=== PATIENT | male | born 1975 | race Hispanic/Latino ===

== ENCOUNTER 2017-06-10 22:32 | Emergency (ER) | payer OTHER, SELFPAY ==
[2017-06-10 22:33] VITALS: BP 122/81; PULSE 69; RESP 15; TEMP 36.5; BMI 25.1
--- NOTE | 2017-06-10 22:47 | ED.VISSUMM ---
- ER Visit Summary Date of Service: 06/10/17 Chief Complaint: Cough with nausea and vomiting History of Present Illness: The patient is a 42 M without any significant past medical history and no prior abdominal surgeries. Patient is speaking and does not speak Uzbek. 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 Patient started having cough with nausea and vomiting this afternoon. Mild abdominal cramping. No diarrhea. No fever. No abdominal trauma. No hematemesis or melena. He has had no recent hospitalization. Physical Examination: Middle-aged male no acute distress. Vital signs are stable afebrile. H EENT exam pupils are round reactive light. Mildly dry mucous membranes. No signs of trauma. Neck nontender no meningismus. Lungs clear to auscultation bilaterally. Heart regular rhythm no murmur rate about 70. Chest wall nontender. Abdomen is soft. Nondistended. Normal bowel sounds. No signs of trauma. No right upper or right lower quadrant tenderness. No peritoneal signs. Minimal epigastric discomfort. No hernias or masses. No signs of obstruction. No obvious organomegaly. Patient is moving all 4 extremities. They are neurovascularly intact with normal range of motion. Normal negative turner strength along with normal dorsi and plantar flexion. No edema. Back exam normal. Neurologic exam normal. Test Results: None done Emergency Department Course and Treatment: Patient appears to have a viral syndrome. His benign abdomen. He will be treated with a liter normal saline and Zofran. Reassess. P.o. fluid challenge. Treatment Plan: On repeat exam at 2336 patient is doing well. He is received a liter of fluid and Zofran. He is currently drinking a glass of water. He states he feels much better and is comfortable being discharged home. He will be given a Zofran home pack. His repeat abdominal exam is benign. Disposition: Discharge Impression: Acute nausea and vomiting secondary to viral syndrome This note was generated with [employer] dictation software. It may contain incorrect words, spelling, and punctuation that were not noted in review of the chart prior to signing ED Disposition - Plan for ED Patient: Disposition: Home or Assisted Living Chief Complaint: Nausea/Vomiting Instructions: ED Nausea Vomiting Referrals: Nate Jacobo MD [Primary Care Provider] - 1-2 Days if not improving Additional Instructions: Plenty of fluids and rest. Zofran as needed for nausea. You may swallow these pills or have them dissolve underneath her tongue. Return if unable to keep fluids down or feeling worse. Otherwise follow-up your primary care physician if not improving.
--- NOTE | 2017-06-10 22:51 | ED.DCSUM_ITS ---
- ER Visit Summary Date of Service: 06/10/17 Chief Complaint: Cough with nausea and vomiting History of Present Illness: The patient is a 42 M without any significant past medical history and no prior abdominal surgeries. Patient is speaking and does not speak Iranian. His sister is with him and is being used as his time study observer. Patient started having cough with nausea and vomiting this afternoon. Mild abdominal cramping. No diarrhea. No fever. No abdominal trauma. No hematemesis or melena. He has had no recent hospitalization. Physical Examination: Middle-aged male no acute distress. Vital signs are stable afebrile. H EENT exam pupils are round reactive light. Mildly dry mucous membranes. No signs of trauma. Neck nontender no meningismus. Lungs clear to auscultation bilaterally. Heart regular rhythm no murmur rate about 70. Chest wall nontender. Abdomen is soft. Nondistended. Normal bowel sounds. No signs of trauma. No right upper or right lower quadrant tenderness. No peritoneal signs. Minimal epigastric discomfort. No hernias or masses. No signs of obstruction. No obvious organomegaly. Patient is moving all 4 extremities. They are neurovascularly intact with normal range of motion. 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 No edema. Back exam normal. Neurologic exam normal. Test Results: None done Emergency Department Course and Treatment: Patient appears to have a viral syndrome. His benign abdomen. He will be treated with a liter normal saline and Zofran. Reassess. P.o. fluid challenge. Treatment Plan: On repeat exam at 2336 patient is doing well. He is received a liter of fluid and Zofran. He is currently drinking a glass of water. He states he feels much better and is comfortable being discharged home. He will be given a Zofran home pack. His repeat abdominal exam is benign. Disposition: Discharge Impression: Acute nausea and vomiting secondary to viral syndrome This note was generated with [employer] dictation software. It may contain incorrect words, spelling, and punctuation that were not noted in review of the chart prior to signing ED Disposition - Plan for ED Patient: Disposition: Home or Assisted Living Chief Complaint: Nausea/Vomiting Instructions: ED Nausea Vomiting Referrals: Nate Jacobo MD [Primary Care Provider] - 1-2 Days if not improving Additional Instructions: Plenty of fluids and rest. Zofran as needed for nausea. You may swallow these pills or have them dissolve underneath her tongue. Return if unable to keep fluids down or feeling worse. Otherwise follow-up your primary care physician if not improving.
[2017-06-10] MEDS: 0.9% Normal Saline 1,000 ML 1000 ML IV (22:52)
[2017-06-10] MEDS: Ondansetron 4 MG/2 ML Vial IV (22:52)
[2017-06-10] MEDS: Ondansetron ODT 4 MG Tablet PO (23:44)
[2017-06-10 23:46] VITALS: RESP 16
== END 2017-06-10 23:48 | disposition home or self-care (01) ==
LOC: ED 23:07
PROVIDERS: Emergency Provider Emergency Medicine; Family Provider Internal Medicine; PCP Internal Medicine
DX: R11.2 Nausea with vomiting, unspecified (principal); B34.9 Viral infection, unspecified
CPT/HCPCS: 96361; 96374; 99283; J7030; J2405

== ENCOUNTER 2018-05-10 21:35 | Observation (INO) | payer OTHER, SELFPAY ==
[2018-05-10 21:37] VITALS: BP 92/48; PULSE 91; RESP 18; TEMP 38.3; O2SAT 92; BMI 24.3
[2018-05-10] MEDS: Ondansetron 4 MG/2 ML Vial IV (22:29)
[2018-05-10] MEDS: 0.9% Normal Saline 1,000 ML 1000 ML IV (22:29)
[2018-05-10 22:37] VITALS: BP 97/48; PULSE 75; RESP 18; TEMP 38.4; O2SAT 95
[2018-05-10 22:46] LABS: Absolute Lymphocyte Count 0.78 X10^3/ul (0.83-4.51); Absolute Neutrophil Count 11.6 X10^3/uL (2.0-7.7); Basophil# 0.02 X10^3/uL; Basophil% 0.2 % (0-1); Eosinophil# 0.02 X10^3/uL; Eosinophils% 0.2 % (0-5); Hematocrit 38.3 % (40-54); Hemoglobin 13.1 g/dl (13.0-16.5); Lymphocyte # 0.78 X10^3/ul (4.0); Mean Corp Hgb Conc 34.2 g/gl (32-36); Mean Corpuscular Volume 90.5 fL (80-94); Mean Platelet Vol. 12.1 fl (6.2-12.0); Monocyte# 0.63 X10^3/uL; Monocyte% 4.8 % (0-10); Neutrophil # 11.55 X10^3/uL (2.7-7.7); Neutrophil % 88.6 % (47-70); Platelet Count 115 K/mm3 (150-450); RBC Distribution Width CV 12.9 % (11.6-14.6); RBC Distribution Width SD 42.6 fl (35.1-43.9); Red Blood Count 4.23 M/mm3 (4.6-6.2)
[2018-05-10 22:47] LABS: POSITIVE COUNT NO; POSITIVE DIFFERENTIAL NO; POSITIVE MORPHOLOGY NO
[2018-05-10 23:08] LABS: ALB/GLOB Ratio 0.9 RATIO (0.9-2.4); AST(SGOT) 29 U/L (15-37); Alanine Aminotransfer ALT/SGPT 26 U/L (16-61); Albumin, Serum 3.5 g/dL (3.2-5.0); Alkaline Phosphatase 91 U/L (45-117); Anion Gap 8 (5-15); BUN 15 mg/dL (7-18); BUN/Creat Ratio 13.5 RATIO (10-20); Calcium,Total 6.4 mg/dL (8.5-10.1); Chloride 99 mmol/L (98-107); Creatinine, Serum 1.11 mg/dL (0.70-1.30); EST Glomerular Filtration Rate 78 mL/min (>60); Est Glom Filt Rate - Afr Amer 94 mL/min (>60); Estimated Creatinine Clearance 85.59 ml/min; Globulin 4.1 g/dL (2.2-4.2); Glucose 176 mg/dL (74-106); Lipase 165 U/L (73-393); Potassium 3.3 mmol/L (3.5-5.1); Protein, Total 7.6 g/dL (6.4-8.2); Sodium Level 134 mmol/L (136-145)
--- NOTE | 2018-05-10 23:08 | ED.RN ---
lab called with critical lab results. Calcium level 6.4. Dr. Khalil made aware. no new orders at this time
--- NOTE | 2018-05-10 23:19 | CT_ITS ---
STUDY: CT ABDOMEN AND PELVIS WITHOUT CONTRAST REASON FOR EXAM: Male, 42 years old. Abdominal pain with vomiting RADIATION DOSAGE (If Supplied By Facility): CTDIvol = ( 6.23 ) mGy, DLP = ( 334.43 ) mGycm TECHNIQUE: Transaxial images were obtained from the dome of the diaphragm to the symphysis pubis without oral contrast, and without intravenous contrast. Sagittal and coronal images were reconstructed. Individualized dose optimization techniques were used for this CT. COMPARISON: None. FINDINGS: There is a large left lower lobe consolidation consistent with pneumonia The liver is normal. No dilated intrahepatic biliary radicles. The gallbladder is normal with no calcifications within it. There is no pericholecystic fluid collection or streakiness The spleen is normal. The pancreas is normal. Both adrenals are normal. The kidneys are normal with no masses, calculi or hydronephrosis The stomach is normal. There is no bowel distention, acute appendicitis or diverticulitis. No constricting lesions are seen in large bowel. The abdominal wall is intact with no hernias. There is no ascites or any free intraperitoneal air. No indication of epiploic appendagitis The vascular structures in the retroperitoneum are normal. There is no retrocrural, retroperitoneal or mesenteric adenopathy. The bones and joints are normal. The urinary bladder is normal.--The prostate is normal. There is no inguinal or pelvic adenopathy. There is no inguinal hernia. . CT/Abdomen/Pelvis without Cont IMPRESSION: Left lower lobe pneumonia. No acute findings in the abdomen or pelvis. Specifically there is no acute appendicitis or diverticulitis. Electronically Signed: Jarocho Sheppard MD at 0:06 EDT Tel , Service support ,
--- NOTE | 2018-05-10 23:28 | EKG12_ITS ---
Test Reason : GEN ILLNESS Blood Pressure : / mmHG Vent. Rate : 076 BPM Atrial Rate : 076 BPM P-R Int : 156 ms QRS Dur : 082 ms QT Int : 384 ms P-R-T Axes : 037 005 027 degrees QTc Int : 432 ms Normal sinus rhythm Nonspecific T wave abnormality Abnormal ECG Confirmed by PALLAVI SMALL, YOEL ([id number]), editor at large TIMO DAVIDSON ([id number]) on 05/14/2018 11:46:38 AM Referred By: CHRISTINE Confirmed By:YOEL OLIVO MD
--- NOTE | 2018-05-10 23:28 | ED.VISSUMM ---
- ER Visit Summary Date of Service: 05/10/18 Chief Complaint: Abdominal pain History of Present Illness: The patient is a 42 M who presents with abdominal pain that began yesterday. Patient describes the pain is sharp. Patient states the pain is over the epigastric area. Patient states he started to have nausea and vomiting today. Patient denies any hematemesis or coffee-ground emesis. Patient denies any diarrhea melena or hematochezia. Patient denies any dysuria or frequency. Patient denies any radiation of the pain into his back. Patient denies any chest pain. Patient denies any shortness of breath. Physical Examination: Vital signs are stable. Patient does have a fever of 101 here. Patient is in no acute distress. Oral mucosa is pink and moist. Oropharynx is clear. Neck is supple. Trachea is midline. There is no JVD noted. Heart was regular rate and rhythm. Lungs are clear and equal bilaterally. Abdomen is soft. There is epigastric tenderness. There is no rebound or guarding noted. Cranial nerves II through XII are intact. There are no focal motor or sensory deficits noted. Test Results: CBC shows a mild leukocytosis of 13.0. Comprehensive metabolic profile showed an elevated bilirubin of 2.0. Calcium was low at 6.4. Lipase was normal. CT scan of the abdomen and pelvis was obtained. A left lower lobe infiltrate was noted. There is no acute intra-abdominal process. Urinalysis was ordered and is normal. EKG showed normal sinus rhythm with a rate of 76. There are no acute ST or T wave changes. QT interval was normal. Emergency Department Course and Treatment: Patient was given IV fluids and Zofran. Patient was given Tylenol for his fever. Patient was given a dose of calcium chloride here. Blood cultures were obtained. A lactate level was obtained. Patient was started on Rocephin and Zithromax. Patient met sepsis criteria. Case was discussed with Dr. Portillo. He will admit the patient to his service. Disposition: Admit to hospital Impression: 1. Community-acquired pneumonia 2. Sepsis 3. Hypocalcemia This note was generated with [employer] software. It may contain incorrect words, spelling, and punctuation that were not noted in review of the chart prior to signing ED Disposition - Plan for ED Patient: Disposition: Acute Care Hospital [facility] Diagnosis: Community acquired pneumonia, Sepsis, Hypocalcemia Referrals: Nate Jacobo MD [Primary Care Provider] -
--- NOTE | 2018-05-10 23:32 | ED.RN ---
NO OLD EKGS IN MUSE
--- NOTE | 2018-05-10 23:33 | ED.DCSUM_ITS ---
- ER Visit Summary Date of Service: 05/10/18 Chief Complaint: Abdominal pain History of Present Illness: The patient is a 42 M who presents with abdominal pain that began yesterday. Patient describes the pain is sharp. Patient states the pain is over the epigastric area. Patient states he started to have nausea and vomiting today. Patient denies any hematemesis or coffee-ground emesis. Patient denies any diarrhea melena or hematochezia. Patient denies any dysuria or frequency. Patient denies any radiation of the pain into his back. Patient denies any chest pain. Patient denies any shortness of breath. Physical Examination: Vital signs are stable. Patient does have a fever of 101 here. Patient is in no acute distress. Oral mucosa is pink and moist. Oropharynx is clear. Neck is supple. Trachea is midline. There is no JVD noted. Heart was regular rate and rhythm. Lungs are clear and equal bilaterally. Abdomen is soft. There is epigastric tenderness. There is no rebound or guarding noted. Cranial nerves II through XII are intact. There are no focal motor or sensory deficits noted. Test Results: CBC shows a mild leukocytosis of 13.0. Comprehensive metabolic profile showed an elevated bilirubin of 2.0. Calcium was low at 6.4. Lipase was normal. CT scan of the abdomen and pelvis was obtained. A left lower lobe infiltrate was noted. There is no acute intra-abdominal process. Urinalysis was ordered and is normal. EKG showed normal sinus rhythm with a rate of 76. There are no acute ST or T wave changes. QT interval was normal. Emergency Department Course and Treatment: Patient was given IV fluids and Zofran. Patient was given Tylenol for his fever. Patient was given a dose of calcium chloride here. Blood cultures were obtained. A lactate level was obtained. Patient was started on Rocephin and Zithromax. Patient met sepsis criteria. Case was discussed with Dr. Portillo. He will admit the patient to his service. Disposition: Admit to hospital Impression: 1. Community-acquired pneumonia 2. Sepsis 3. Hypocalcemia This note was generated with [employer] software. It may contain incorrect words, spelling, and punctuation that were not noted in review of the chart prior to signing ED Disposition - Plan for ED Patient: Disposition: Acute Care Hospital [facility] Diagnosis: Community acquired pneumonia, Sepsis, Hypocalcemia Referrals: Nate Jacobo MD [Primary Care Provider] -
[2018-05-10 23:51] LABS: Mucous, Urine 0 SEEN /hpf (<or=2+); Red Blood Cells-Urine 0 SEEN /hpf (0-5); White Blood Cells 0 SEEN /hpf (0-5)
[2018-05-10 23:56] LABS: Color, Urine Yellow (Yellow); Glucose, Dipstick Normal (Normal); Ketone-Dipstick Negative (Negative); Leukocyte Esterase-Dipstick Negative /ul (Negative); Nitrite-Dipstick Negative (Negative); Occult Blood-Urine Negative /ul (Negative); Protein-Dipstick 30 mg/dl (Negative); Specific Gravity, Urine 1.005 (1.002-1.030); Urine Bilirubin Dipstick Negative (Negative); Urine Clarity Clear (Clear); Urine Urobilinogen Normal (Normal)
[2018-05-11] VITALS (19 sets, daily range): BP systolic 96–131; BP diastolic 53–65; PULSE 75–103; RESP 16–23; TEMP 36.8–39.4; O2SAT 94–97; BMI 23.8
[2018-05-11 00:03] LABS: Bacteria RARE /hpf (None Seen); Squamous Epithelial Cells - UA 0-5 SEEN /hpf (0-5)
[2018-05-11] MEDS: Acetaminophen 500 MG Tablet 1000 MG PO (00:12)
--- NOTE | 2018-05-11 00:45 | PCM.HP.STD ---
Problem List (1) Community acquired pneumonia Status: Acute (2) Sepsis Status: Acute (3) Hypocalcemia Status: Acute History of Present Illness Date of Admission: 05/11/18 Chief Complaint: abdominal pain, nausea and vomiting The patient is a 42 year old M who presented with a few hours history of excruciating abdominal pain, nausea and vomiting. At the emergency department CT scan of his abdomen showed a consolidation in the left lung. Also patient was found to have elevated white count of 13, sodium of 134, potassium of 3.3 and his calcium was severely low at 6.4. Also he had a total bilirubin of 2.0. His lactic acid was 1.2. Patient received 1 g of calcium chloride at emergency department. Also patient received IV fluid bolus. Blood cultures were obtained. And patient was started on ceftriaxone and azithromycin. Past Medical History Medical History: Medical History (Last Updated 05/11/18 @ 07:22 by Yahir Portillo MD) No pertinent past medical history Z78.9 Allergies No Known Allergies Allergy (Verified 05/10/18 21:41) Home Medications: Ambulatory Orders Medication Instructions Recorded Bmx Liquid 10 - 15 ml PO Q4H PRN PRN 05/10/18 Surgical History: - - Patient has some type of surgery in his mouth x3 times. Lives: With Family Smoking Status: Never smoker Alcohol: None - *Family History Maternal History Items: Diabetes Paternal History Items: Heart Disease Review of Systems Constitutional: Reports: Chills. Denies: Weight Change HEENT: Reports: Head Aches. Denies: Sinus Congestion, Sinus Drainage Cardiovascular: Denies: Chest Pain, Palpitations Respiratory: Denies: Cough, Shortness of breath at rest, Sputum production Gastrointestinal: Reports: Abdominal Pain, Nausea, Vomiting Genitourinary: Denies: Dysuria Musculoskeletal: Denies: Joint Pain, Joint Tenderness Skin: Denies: Rash, Wounds Neurological: Denies: Numbness, Tingling, Focal weakness Psychiatric: Denies: Anxiety, Depression, Homicidal Ideations, Suicidal Ideations Hematologic/ Lymphatic: Denies: Easy Bruising, Easy Bleeding VTE Information - Inpt Only VTE Present on Admission: No VTE Mechan Device Prophylaxis: None VTE Pharm Prophylaxis ordered?: No Reason prophylaxis not ordered:: Treatment Not Indicated - Low risk, ambulate. Patient Problems: Active and Suspected Problems Community acquired pneumonia (Acute) Sepsis (Acute) Hypocalcemia (Acute) - Physical Exam General: Alert, Oriented x3, Cooperative HEENT: Atraumatic, PERRLA, EOMI, Normocephalic Neck: Supple, No JVD, Negative Carotid Bruits Lungs: Rales - Left lower lung toribio. Cardiovascular: Regular rate, No murmurs Abdomen: Bowel Sounds Present, Soft, Non Tender Extremities: No edema, Capillary Refill Less than 3 Seconds Skin: No rashes, No breakdown Musculoskeletal: No Tenderness to Palpation of Joints or Extremities Neurological: Cranial nerves II-XII grossly intact Psych/Mental Status: Normal Affect, Appropriate Vital Signs Temp Pulse Resp BP Pulse Ox 100.1 F H 76 18 96/62 96 05/11/18 00:13 05/11/18 00:13 05/11/18 00:13 05/11/18 00:13 05/11/18 00:13 Oxygen Delivery Method Room Air Weight: 72.575 kg Body Mass Index (BMI) 24.3 Laboratory Tests Past 24 Hrs 05/10/18 05/10/18 05/10/18 22:36 22:36 23:49 WBC 13.0 H RBC 4.23 L Hgb 13.1 Hct 38.3 L MCV 90.5 MCH 31.0 MCHC 34.2 RDW 12.9 RDW Differential 42.6 Plt Count 115 L MPV 12.1 H Immature Gran % (Auto) 0.200 Neut % (Auto) 88.6 H Lymph % (Auto) 6.0 L [place] % (Auto) 4.8 Eos % (Auto) 0.2 Baso % (Auto) 0.2 Absolute Neuts (auto) 11.6 H Absolute Lymphs (auto) 0.78 L Total Counted Not Reportable Sodium 134 L Potassium 3.3 L Chloride 99 Carbon Dioxide 27.0 Anion Gap 8 BUN 15 Creatinine 1.11 Estim Creat Clear Calc 85.59 Est GFR (MDRD) Af Amer 94 Est GFR (MDRD) Non-Af 78 BUN/Creatinine Ratio 13.5 Glucose 176 H Lactic Acid Calcium 6.4 L* Total Bilirubin 2.00 H AST 29 ALT 26 Alkaline Phosphatase 91 Total Protein 7.6 Albumin 3.5 Globulin 4.1 Albumin/Globulin Ratio 0.9 Lipase 165 Urine Color Yellow Urine Clarity Clear Urine pH 7.0 Ur Specific Scroggins 1.005 Urine Protein 30 H Urine Glucose (UA) Normal Urine Ketones Negative Urine Occult Blood Negative Urine Nitrite Negative Urine Bilirubin Negative Urine Urobilinogen Normal Ur Leukocyte Esterase Negative Urine RBC 0 SEEN Urine WBC 0 SEEN Ur Squamous Epith Cells 0-5 SEEN Urine Bacteria RARE Urine Mucus 0 SEEN 05/11/18 00:37 WBC RBC Hgb Hct MCV MCH MCHC RDW RDW Differential Plt Count MPV Immature Gran % (Auto) Neut % (Auto) Lymph % (Auto) [place] % (Auto) Eos % (Auto) Baso % (Auto) Absolute Neuts (auto) Absolute Lymphs (auto) Total Counted Sodium Potassium Chloride Carbon Dioxide Anion Gap BUN Creatinine Estim Creat Clear Calc Est GFR (MDRD) Af Amer Est GFR (MDRD) Non-Af BUN/Creatinine Ratio Glucose Lactic Acid Pending Calcium Total Bilirubin AST ALT Alkaline Phosphatase Total Protein Albumin Globulin Albumin/Globulin Ratio Lipase Urine Color Urine Clarity Urine pH Ur Specific Scroggins Urine Protein Urine Glucose (UA) Urine Ketones Urine Occult Blood Urine Nitrite Urine Bilirubin Urine Urobilinogen Ur Leukocyte Esterase Urine RBC Urine WBC Ur Squamous Epith Cells Urine Bacteria Urine Mucus Assessment/Plan All Active Problems Community acquired pneumonia (Acute) Sepsis (Acute) Hypocalcemia (Acute) The patient is a 42 year old M who presented with a few hours history of excruciating abdominal pain, nausea and vomiting and radiographic findings of consolidation in the left lung; and with SIRS criteria of leukocytosis and fever consistent with sepsis secondary to committee acquired pneumonia. Sepsis secondary to committee acquired pneumonia. Lactic acid: 1.2 T-max of 100.1 Leukocytosis of white count 13 Blood culture ?2 is pending Impression of abdomen and Pelvis CT: Lower lobe pneumonia. CT of abdomen and pelvis was independently reviewed. It showed a consolidation in the left lower lobe. Patient is not coughing. Respiratory Gram stain and culture were not ordered. Antibiotics : Ceftriaxone was started at the ED on 05/11/2018 0050. Azithromycin was started at 05/11/18 0115. We will continue ceftriaxone and azithromycin. IV hydration: Received normal saline 1 L bolus at emergency department. We will continue patient on normal saline with 40 mEq of potassium maintenance infusion going to 150 mL's per hour. Legionella antigen screen and Strep antigen ordered Chest physiotherapy ordered. As needed Phenergan for nausea. Tylenol for pain. Hypocalcemia On admission his calcium was 6.4. Corrected for albumin is calcium is 6.8. Likely secondary to vomiting. Received calcium chloride 1g at emergency department. We will give 1 g of calcium gluconate. Repeat BMP in a.m. Hyponatremia On admission his sodium was 134. This could be due to vomiting. Maintenance infusion of normal saline potassium ordered. Hypokalemia His potassium on admission was 3.3. This could be due to vomiting. Normal saline with potassium supplementation ordered. Magnesium level ordered. Hyperbilirubinemia His total bilirubin on admission was 2.0. This is likely due to sepsis. Treatment of sepsis as above. DVT prophylaxis Encourage ambulation. Code Visit Inpatient E&M: [id number] Init Hosp L3
[2018-05-11] MEDS: Ceftriaxone 1 GM/50 ML BAG IV ×2 (00:50→22:54)
[2018-05-11 01:09] LABS: Lactic Acid 1.2 mmol/L (0.4-2.0)
[2018-05-11] MEDS: 0.9% NaCl Peripheral Flush Adult/Peds IV ×6 (03:21→22:55)
[2018-05-11] MEDS: Potassium Chloride 40 MEQ in 0.9% Normal Saline 1,000 ML 150 MEQ IV (03:23)
[2018-05-11] MEDS: Ketorolac 15 MG/ML Vial IV (06:04)
--- NOTE | 2018-05-11 06:33 | NURSING ---
Foreign Service Officer: Papa [id number]
--- NOTE | 2018-05-11 06:34 | NURSING ---
Interpretor: Familia [id number]
--- NOTE | 2018-05-11 06:34 | NURSING ---
Nutrition Services Worker iPad used this AM to communicate with pt. Pt c/o 10/10 pain in head and 6/10 pain in feet. Pt also c/o heartburn. Via historic interpreter, explained to pt that he has a little bit of a fever, but it's not too high at this time. Also explained that pt has pneumonia. Explained that he got antibiotics and he will get those again in his IV. Explained to pt to call for staff assistance if he needs to get up since he is hooked up to multiple things. Pt breakfast order taken via the historic interpreter. Other than something for pain, pt denies needs.
[2018-05-11 07:13] LABS: Hematocrit 37.2 % (40-54); Hemoglobin 12.6 g/dl (13.0-16.5); Mean Corp Hgb Conc 33.9 g/gl (32-36); Mean Corpuscular Hgb 31.4 pg (27.0-32.0); Mean Corpuscular Volume 92.8 fL (80-94); Mean Platelet Vol. 13.4 fl (6.2-12.0); Platelet Count 91 K/mm3 (150-450); RBC Distribution Width CV 12.8 % (11.6-14.6); RBC Distribution Width SD 42.6 fl (35.1-43.9); Red Blood Count 4.01 M/mm3 (4.6-6.2); White Blood Count 10.6 K/mm3 (4.4-11.0)
[2018-05-11 07:21] LABS: Anion Gap 8 (5-15); BUN 11 mg/dL (7-18); BUN/Creat Ratio 11.1 RATIO (10-20); Chloride 103 mmol/L (98-107); EST Glomerular Filtration Rate 88 mL/min (>60); Est Glom Filt Rate - Afr Amer 107 mL/min (>60); Glucose 139 mg/dL (74-106); Magnesium 1.6 mg/dL (1.6-2.6); Potassium 3.3 mmol/L (3.5-5.1); Scan Indicated on CBC? Y/N NO; Sodium Level 138 mmol/L (136-145)
--- NOTE | 2018-05-11 07:22 | NURSING ---
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
[2018-05-11] MEDS: proMETHazine 25 MG/ML Syringe 6.25 MG IV (10:08)
[2018-05-11 11:38] LABS: M R Staph aureus DNA By PCR POSITIVE (Negative); Probe Check PASS
--- NOTE | 2018-05-11 11:44 | CASEMGMT ---
RN CM chart review: Pt states only speaks 'very little Urdu', pt's primary language is Espanol. Pt with no previous admissions to [facility]. Pt does have PCP and health insurance. Elier RN states will place preferred pharmacy for pt into computer. Pt states no concerns with going home at this time. Pt does have concerns with work release and Dr. Vazquez took care of that at this time. Pt does state hx of Guillian [place] in the past and Dr. Vazquez was made aware but this was not listed in pt history initially. Pt voices no further concerns/needs/questions at this time. This RN CM will check in with pt again if sister returns. Laura GHOTRA CM
[2018-05-11] MEDS: Mag Hydrox/Al Hydrox/Simeth 30 ML UDC 15 ML PO (12:41)
[2018-05-11] MEDS: Acetaminophen 325 MG Tablet 650 MG PO ×2 (15:27→22:55)
--- NOTE | 2018-05-11 15:50 | RAD_ITS ---
STUDY: X-RAY CHEST REASON FOR EXAM: Male, 42 years old. Shortness of breath. TECHNIQUE: 2 views COMPARISON: None. FINDINGS: Limited inspiration. Bilateral atelectatic change with a more substantial consolidation in the posterior left lower lobe. Negative for substantial pleural effusion. Normal size heart. Normal mediastinum and abiola. Normal visualized pulmonary arteries. Normal visualized aortic arch and descending thoracic aorta. There are diffuse degenerative changes of the visualized thoracic spine. Normal visualized ribs, clavicles, and shoulders. There is no demonstrated abnormality of the visualized soft tissue structures of the upper abdomen. RAD/Chest PA and Lateral IMPRESSION: Shallow inspiration with generalized bilateral atelectatic changes with a more substantial focal consolidation in the posterior left lower lobe, potential pneumonic process. Electronically Signed: Hayley Fleming MD at 16:11 EDT , Service support ,
--- NOTE | 2018-05-11 22:01 | NURSING ---
This Nurse called pharmacy to have rocephin and zithromax sent up to do dosages being due per MD orders, pharmacy fixing and sending up.
[2018-05-12] VITALS (11 sets, daily range): BP systolic 102–116; BP diastolic 60–70; PULSE 66–96; RESP 18–22; TEMP 36.9–38.5; O2SAT 94–100
[2018-05-12] MEDS: Acetaminophen 325 MG Tablet 650 MG PO ×2 (05:56→10:41)
[2018-05-12 06:24] LABS: Absolute Lymphocyte Count 1.12 X10^3/ul (0.83-4.51); Absolute Neutrophil Count 9.7 X10^3/uL (2.0-7.7); Basophil# 0.02 X10^3/uL; Basophil% 0.2 % (0-1); Eosinophil# 0.01 X10^3/uL; Eosinophils% 0.1 % (0-5); Hematocrit 37.9 % (40-54); Hemoglobin 12.4 g/dl (13.0-16.5); Lymphocyte # 1.12 X10^3/ul (4.0); Lymphocyte % 9.8 % (19-41); Mean Corp Hgb Conc 32.7 g/gl (32-36); Mean Corpuscular Hgb 30.3 pg (27.0-32.0); Mean Corpuscular Volume 92.7 fL (80-94); Mean Platelet Vol. 13.1 fl (6.2-12.0); Monocyte# 0.55 X10^3/uL; Monocyte% 4.8 % (0-10); Neutrophil % 84.9 % (47-70); Platelet Count 95 K/mm3 (150-450); RBC Distribution Width CV 13.2 % (11.6-14.6); Red Blood Count 4.09 M/mm3 (4.6-6.2); White Blood Count 11.4 K/mm3 (4.4-11.0)
[2018-05-12 06:25] LABS: POSITIVE COUNT NO; POSITIVE DIFFERENTIAL NO; POSITIVE MORPHOLOGY NO
--- NOTE | 2018-05-12 07:56 | RAD_ITS ---
STUDY: X-RAY CHEST REASON FOR EXAM: Male, 42 years old. Short of breath. TECHNIQUE: Single AP portable view of the chest. COMPARISON: 05/11/2018. FINDINGS: Normal lung volumes. Continued left lower lobe infiltrate slightly improved. Mild airspace disease in the right lung base also improved. No effusions. Normal size heart. Normal mediastinum and abiola. Normal visualized pulmonary arteries. Normal visualized aortic arch and descending thoracic aorta. Normal visualized thoracic spine. Normal visualized ribs, clavicles, and shoulders. There is no demonstrated abnormality of the visualized soft tissue structures of the upper abdomen. RAD/Chest PA and Lateral IMPRESSION: Slightly improved infiltrate of the left lower lobe. Improving atelectasis in the right lung base. Electronically Signed: Jonathan Martinez MD at 13:58 EDT , Service support ,
[2018-05-12] MEDS: levoFLOXacin 750 MG Tablet PO (10:42)
--- NOTE | 2018-05-12 10:43 | NURSING ---
Student nurse charting reviewed.
--- NOTE | 2018-05-12 11:37 | DCINST_ITS ---
- Discharge Diagnoses Current Active Problems: Current Active and Chronic Problems (Last Updated 05/11/18 @ 07:22 by Yahir Portillo MD) Community acquired pneumonia (Acute) Sepsis (Acute) Hypocalcemia (Acute) You will use the following diet at home:: No restrictions Your food should be the consistency of: Regular Your liquids should be the consistency of: Regular/Thin Discharge Activity: Return to Normal Activity Return to work on:: 05/19/18 Allergies/Adverse Reactions: Allergies No Known Allergies Allergy (Verified 05/10/18 21:41) Medications to take at Discharge Levofloxacin [Levaquin] 750 mg PO DAILY #7 tablet 05/12/18 The following prescriptions were given: Levofloxacin [Levaquin] 750 mg PO DAILY #7 tablet Primary Care Physician: Nate Jacobo MD [Primary Care Provider] - Please follow up with your Primary Care Physician in: this week Test Results: Test results from this visit will be discussed in further detail at your follow- up appointment, if applicable.
--- NOTE | 2018-05-13 17:22 | PCM.DC.SUM ---
Discharge Date and Diagnosis Date of Admission: 05/11/18 Date of Discharge: 05/12/18 - Primary Discharge Diagnosis #1 sepsis secondary to community-acquired sgairvsix-xjgf-vnlzwgbe #2 posterior left lower lobe community-acquired oqzzmfzzr-zyhj-mzevkpif bacterial #2 hypokalemia #3 hypocalcemia #4 Acute gastroenteritis Hospital Course and Treatment Operations: None Procedures: None Summary of Care Provided: The patient is a 42 year old M who was seen in the emergency room at [facility] with a chief complaint of generalized abdominal pain with nausea and vomiting. Workup in the emergency room included a chest x-ray which showed a consolidation in the left lung, patient had leukocytosis and met sepsis criteria. CT of the abdomen did not show any acute abdominal pathology. Patient was admitted to PCU, placed on IV antibiotics and fluids, and he did not require supplemental oxygen. Patient's condition improved and he had resolution of his abdominal pain and nausea and vomiting-the exact etiology of those symptoms were unknown. Patient was given potassium supplementation. Calcium chloride was administered IV. On 05/12/18, patient was seen and examined: On examination he appeared in good health and spirits. Vital signs as documented. Skin warm and dry and without overt rashes. Neck without JVD. Lungs-inspiratory rales were noted at the patient's left lung base. Heart exam notable for regular rhythm, normal sounds and absence of murmurs, rubs or gallops. Abdomen unremarkable and without evidence of organomegaly, masses, or abdominal aortic enlargement. Extremities nonedematous. Neuro: Cranial nerves II through XII are grossly intact, no focal motor deficits were noted, sensation to light touch and pinprick intact. Psych: Patient is alert and oriented x3, he does not appear anxious or depressed On 05/12/18, patient was discharged home in stable condition - Physical Exam Vital Signs Temp Pulse Resp BP Pulse Ox 99 F 94 20 H 116/67 94 05/12/18 11:36 05/12/18 11:36 05/12/18 11:36 05/12/18 11:36 05/12/18 11:36 Oxygen Flow Rate (L/min) 1 Oxygen Delivery Method Room Air Weight: 71 kg Body Mass Index (BMI) 23.8 Intake and Output for Last 24 Hours 05/11/18 05/12/18 05/13/18 23:59 23:59 23:59 Intake Total 2690 / 2690 1097 / 1097 Output Total 580 / 580 Balance 2110 / 2110 1097 / 1097 Microbiology Past 72 Hours 05/11/18 00:40 Blood Culture - Preliminary Blood Culture (Wb) - Right Hand No growth in 48 hours. 05/11/18 00:37 Blood Culture - Preliminary Blood Culture (Wb) - Anticubital Left No growth in 48 hours. 05/12/18 09:45 Influenza Types A,B Direct FA (KEILY) - Final Mucosa - Nose 05/10/18 23:44 Streptococcus pneumoniae Antigen (M - Final Urine, Clean Catch 05/10/18 23:44 Legionella Antigen - Final Urine, Clean Catch Discharge Activity: Return to Normal Activity Return to work on:: 05/19/18 Home Medications: Medications to take at Discharge Levofloxacin [Levaquin] 750 mg PO DAILY #7 tablet 05/12/18 Following Prescrptions Were Given to Patient: Levofloxacin [Levaquin] 750 mg PO DAILY #7 tablet Primary Care Physician: Nate Jacobo MD [Primary Care Provider] - Please follow up with your Primary Care Physician in: this week Please Follow Up With: Nate Jacobo MD Disposition: Home Minutes spent on discharge:: 32 Patient Condition:: Stable Medical Necessity - Tobacco Use Smoking Status: Never smoker Meaningful Use Info Meaningful Use Diagnoses (Choose all that apply): None applicable Code Visit Inpatient E&M: 01140 Disch Hosp
--- NOTE | 2018-05-13 17:28 | DS.PCM_ITS ---
Discharge Date and Diagnosis Date of Admission: 05/11/18 Date of Discharge: 05/12/18 - Primary Discharge Diagnosis #1 sepsis secondary to community-acquired dmbtgmtya-lozi-ubekxxur #2 posterior left lower lobe community-acquired xxpupxnph-swrc-nkbjhbdy bacterial #2 hypokalemia #3 hypocalcemia #4 Acute gastroenteritis Hospital Course and Treatment Operations: None Procedures: None Summary of Care Provided: The patient is a 42 year old M who was seen in the emergency room at [facility] with a chief complaint of generalized abdominal pain with nausea and vomiting. Workup in the emergency room included a chest x-ray which showed a consolidation in the left lung, patient had leukocytosis and met sepsis criteria. CT of the abdomen did not show any acute abdominal pathology. Patient was admitted to PCU, placed on IV antibiotics and fluids, and he did not require supplemental oxygen. Patient's condition improved and he had resolution of his abdominal pain and nausea and vomiting-the exact etiology of those symptoms were unknown. Patient was given potassium supplementation. Calcium chloride was administered IV. On 05/12/18, patient was seen and examined: On examination he appeared in good health and spirits. Vital signs as documented. Skin warm and dry and without overt rashes. Neck without JVD. Lungs-inspiratory rales were noted at the patient's left lung base. Heart exam notable for regular rhythm, normal sounds and absence of murmurs, rubs or gallops. Abdomen unremarkable and without evidence of organomegaly, masses, or abdominal aortic enlargement. Extremities nonedematous. Neuro: Cranial nerves II through XII are grossly intact, no focal motor deficits were noted, sensation to light touch and pinprick intact. Psych: Patient is alert and oriented x3, he does not appear anxious or depressed On 05/12/18, patient was discharged home in stable condition - Physical Exam Vital Signs Temp Pulse Resp BP Pulse Ox 99 F 94 20 H 116/67 94 05/12/18 11:36 05/12/18 11:36 05/12/18 11:36 05/12/18 11:36 05/12/18 11:36 Oxygen Flow Rate (L/min) 1 Oxygen Delivery Method Room Air Weight: 71 kg Body Mass Index (BMI) 23.8 Intake and Output for Last 24 Hours 05/11/18 05/12/18 05/13/18 23:59 23:59 23:59 Intake Total 2690 / 2690 1097 / 1097 Output Total 580 / 580 Balance 2110 / 2110 1097 / 1097 Microbiology Past 72 Hours 05/11/18 00:40 Blood Culture - Preliminary Blood Culture (Wb) - Right Hand No growth in 48 hours. 05/11/18 00:37 Blood Culture - Preliminary Blood Culture (Wb) - Anticubital Left No growth in 48 hours. 05/12/18 09:45 Influenza Types A,B Direct FA (KEILY) - Final Mucosa - Nose 05/10/18 23:44 Streptococcus pneumoniae Antigen (M - Final Urine, Clean Catch 05/10/18 23:44 Legionella Antigen - Final Urine, Clean Catch Discharge Activity: Return to Normal Activity Return to work on:: 05/19/18 Home Medications: Medications to take at Discharge Levofloxacin [Levaquin] 750 mg PO DAILY #7 tablet 05/12/18 Following Prescrptions Were Given to Patient: Levofloxacin [Levaquin] 750 mg PO DAILY #7 tablet Primary Care Physician: Nate Jacobo MD [Primary Care Provider] - Please follow up with your Primary Care Physician in: this week Please Follow Up With: Nate Jacobo MD Disposition: Home Minutes spent on discharge:: 32 Patient Condition:: Stable Medical Necessity - Tobacco Use Smoking Status: Never smoker Meaningful Use Info Meaningful Use Diagnoses (Choose all that apply): None applicable Code Visit Inpatient E&M: 15520 Disch Hosp
== END 2018-05-12 12:16 | disposition home or self-care (01) ==
LOC: ED 05-11 00:53 → PCU 05-11 01:16
PROVIDERS: Admitting Provider Hospitalist; Emergency Provider Emergency Medicine; Family Provider Internal Medicine; PCP Internal Medicine; Visit Provider Internal Medicine
DX: A41.9 Sepsis, unspecified organism (principal); J18.9 Pneumonia, unspecified organism; E83.51 Hypocalcemia; E87.1 Hypo-osmolality and hyponatremia; E87.6 Hypokalemia; K52.9 Noninfective gastroenteritis and colitis, unspecified; Z23 Encounter for immunization
CPT/HCPCS: 36415; 71046; 74176; 80048; 80053; 81001; 83605; 83690; 83735; 85025; 85027; 87040; 87449; 87641; 87804; 93005; 94667; 94668; 94762; 96361; 96365; 96366; 96367; 96375; 97802; 99218; 99284; J7030; J7050; 90686; A4216; G0378; J0610; J2405

== ENCOUNTER 2018-08-05 22:31 | Emergency (ER) | payer OTHER, SELFPAY ==
[2018-08-05 22:35] VITALS: BP 122/81; PULSE 69; RESP 18; TEMP 36.8; O2SAT 98; BMI 25.2
--- NOTE | 2018-08-05 22:52 | ED.DCSUM_ITS ---
History of Present Illness Chief Complaint: Cough Informant: Patient Narrative: She presents with a cough for the last 3 days nonproductive dry. Occasionally he has some nasal yellow mucus that he blows out. No sick contacts. Current severity is mild. he was coughing so hard after eating dinner that he vomited once. Comes in for further treatment and evaluation. Similar symptoms last year with a viral upper respiratory infection. No fevers or chills or other symptoms except for a mild scratchy throat. No home treatment. Past Medical History - Allergies and Home Meds Allergies/Adverse Reactions: Allergies No Known Allergies Allergy (Verified 08/05/18 22:34) Primary Care Physician: Nate Jacobo MD [Primary Care Provider] - Prior records reviewed: Yes Past Medical History: - - Reviewed Surgical History: noncontributory Smoking Status: Never smoker Alcohol: None Drugs: None Review of Systems General: Denies: Chills, Fever, Sweats Eyes: Denies: Visual changes - bilaterally, Diplopia ENT: Reports: Rhinorrhea, Sore throat Cardiovascular: Denies: Chest pain, Palpitations Respiratory: Reports: Cough. Denies: Dyspnea, Dyspnea on exertion Gastrointestinal: Reports: Vomiting. Denies: Abdominal pain, Nausea, Diarrhea, Melena, Hematochezia Genitourinary: Denies: Dysuria, Hematuria, Frequency Musculoskeletal: Denies: Back pain, Extremity Pain Skin: Denies: Rash, Wounds Neurological: Denies: Headache, Weakness, Numbness Physical Exam Vital Signs/Narrative: Vital Signs Temp Pulse Resp BP Pulse Ox 08/05/18 22:35 98.3 F 69 18 122/81 H 98 General: Well nourished, Well developed, No Acute Distress Head: Normocephalic, Atraumatic Eyes: Perrl, EOMI ENT: Moist mucous membranes, No rhinorrhea Neck: Supple, Nontender Cardiovascular: Regular rate, Regular rhythm, No murmurs Respiratory: No distress, CTA bilaterally, Chest nontender Abdomen: Soft, Nontender, Nondistended, Normal bowel sounds Back: Nontender, Normal Inspection Extremities: Nontender, No edema Skin: Normal color, No rash Neurological: Alert, Oriented x3, Cranial nerves II-XII grossly intact, Normal Strength, Normal Sensation Psychological: Normal affect, Normal Mood Diagnostic/Tx/Re-eval - Medical Decision Making Patient appears well. At this time I think he just has an upper respiratory infection. He states he has mild nausea. Given a dose of Zofran and a prescription for home. Will use Mucinex and Sudafed and will follow-up as an outpatient. I do not feel he needs a chest x-ray as I do not think he has a pneumonia. ED Disposition - Plan for ED Patient: Disposition: [facility] Diagnosis: Upper respiratory infection Instructions: ED Upper Resp Infec No Abx Tx Prescriptions: Ondansetron [Zofran Odt] 4 mg PO Q8H PRN PRN #10 tab PRN Reason: Nausea Referrals: Nate Jacobo MD [Primary Care Provider] -
[2018-08-05] MEDS: Ondansetron 8 MG Tablet PO (23:07)
[2018-08-05 23:09] VITALS: BP 122/85; PULSE 64; RESP 18; O2SAT 97
== END 2018-08-05 23:10 | disposition home or self-care (01) ==
PROVIDERS: Emergency Provider Emergency Medicine; Family Provider Internal Medicine; PCP Internal Medicine
DX: J06.9 Acute upper respiratory infection, unspecified (principal); R11.2 Nausea with vomiting, unspecified
CPT/HCPCS: 99283

== ENCOUNTER 2018-12-11 16:31 | Emergency (ER) | payer OTHER, SELFPAY ==
[2018-12-11 16:32] VITALS: BP 135/91; PULSE 83; RESP 15; TEMP 36.5; O2SAT 96; BMI 26.7
--- NOTE | 2018-12-11 16:49 | RAD_ITS ---
STUDY: X-RAY CHEST REASON FOR EXAM: Male, 43 years old. Right flank pain and abdominal pain TECHNIQUE: Single frontal view of the chest. COMPARISON: May 01 2013 FINDINGS: The lungs are clear and expanded. There is no demonstrated pleural abnormality. Normal size heart. Normal mediastinum and abiola. Normal visualized pulmonary arteries. Normal visualized aortic arch and descending thoracic aorta. Normal visualized thoracic spine. Normal visualized ribs, clavicles, and shoulders. There is no demonstrated abnormality of the visualized soft tissue structures of the upper abdomen. RAD/Chest 1 View (Portable) IMPRESSION: Normal x-ray examination of the chest. Electronically Signed: Brayan Brown MD at 17:13 EDT , Service support ,
--- NOTE | 2018-12-11 16:49 | EKG12_ITS ---
Test Reason : FLANK PAIN Blood Pressure : / mmHG Vent. Rate : 072 BPM Atrial Rate : 072 BPM P-R Int : 170 ms QRS Dur : 084 ms QT Int : 392 ms P-R-T Axes : 037 -01 013 degrees QTc Int : 429 ms Normal sinus rhythm Minimal voltage criteria for LVH, may be normal variant Borderline ECG Confirmed by PALLAVI SMALL, YOEL ([id number]), book or script editor GABBIE ARENAS ([id number] on 12/14/2018 10:57:09 AM Referred By: JUNO Confirmed By:YOEL OLIVO MD
--- NOTE | 2018-12-11 16:57 | ED.VISSUMM ---
- ER Visit Summary Date of Service: 12/11/18 Chief Complaint: Right sided pain History of Present Illness: The patient is a 43 M presenting with right-sided pain. This started today. Patient is Sammarinese-speaking and his nephew is here translating. He has pain in his right lower chest that is worse with deep breathing. He has right upper quadrant abdominal pain. Denies nausea or vomiting or diarrhea. Denies fever. Denies other complaints. Physical Examination: Vitals are stable. Patient is afebrile. Alert no acute distress. HEENT exam is unremarkable. Neck is supple. Lungs are clear and equal bilaterally. Right lower chest wall tenderness with no crepitus Heart is regular rate and rhythm. Abdomen is soft nontender nondistended. No guarding or rebound Extremities are unremarkable. Skin is warm and dry. No focal neurologic deficit. Remainder of exam is unremarkable. Emergency Department Course and Treatment: Patient given morphine, Zofran IV. EKG is sinus rhythm rate of 72 with no acute ischemic changes. Chest x-ray shows no acute process. CBC normal except for platelet 139, similar to previous. Chemistries unremarkable. Lipase is normal. Troponin is negative. Urinalysis unremarkable. CTA chest shows no acute process. On reevaluation, patient is resting comfortably. He is given prescription for Naprosyn. Advised to follow-up with his primary care physician. Advised to return to the ED for worsening complaints. Disposition: Discharge home Impression: Chest wall pain This note was generated with [employer] dictation software. It may contain incorrect words, spelling, and punctuation that were not noted in review of the chart prior to signing ED Disposition - Plan for ED Patient: Instructions: Chest Wall Strain Prescriptions: Naproxen [Naprosyn] 500 mg PO BID PRN #20 tab Prescription Printed Referrals: Nate Jacobo MD [Primary Care Provider] -
[2018-12-11] MEDS: Ondansetron 4 MG/2 ML Vial IV (17:04)
[2018-12-11] MEDS: Morphine 4 MG/ML Syringe IV (17:04)
[2018-12-11 17:13] LABS: Absolute Lymphocyte Count 2.35 X10^3/uL (0.83-4.51); Absolute Neutrophil Count 3.9 X10^3/uL (2.0-7.7); Basophil# 0.03 X10^3/uL; Basophil% 0.4 % (0-1); Eosinophil# 0.35 X10^3/uL; Hematocrit 39.5 % (40-54); Hemoglobin 13.5 g/dL (13.0-16.5); Lymphocyte # 2.35 X10^3/ul (4.0); Lymphocyte % 33.7 % (19-41); Mean Corp Hgb Conc 34.2 g/dL (32-36); Mean Corpuscular Hgb 30.5 pg (27.0-32.0); Mean Corpuscular Volume 89.4 fL (80-94); Mean Platelet Vol. 12.4 fl (6.2-12.0); Monocyte# 0.35 X10^3/uL; NRBC Flagged by Analyzer 0 % (0-5); Neutrophil # 3.88 X10^3/uL (2.7-7.7); Neutrophil % 55.6 % (47-70); Platelet Count 139 K/mm3 (150-450); RBC Distribution Width SD 42.6 fl (35.1-43.9); Red Blood Count 4.42 M/mm3 (4.6-6.2)
[2018-12-11 18:13] LABS: ALB/GLOB Ratio 1.1 RATIO (0.9-2.4); AST(SGOT) 29 U/L (15-37); Alanine Aminotransfer ALT/SGPT 36 U/L (16-61); Alkaline Phosphatase 102 U/L (45-117); Anion Gap 6 (5-15); BUN 14 mg/dL (7-18); BUN/Creat Ratio 14.6 RATIO (10-20); Calcium,Total 7.6 mg/dL (8.5-10.1); Chloride 105 mmol/L (98-107); Creatinine, Serum 0.96 mg/dL (0.70-1.30); EST Glomerular Filtration Rate 92 mL/min (>60); Est Glom Filt Rate - Afr Amer 111 mL/min (>60); Estimated Creatinine Clearance 91.38 ml/min; Globulin 3.5 g/dL (2.2-4.2); Glucose 124 mg/dL (74-106); Lipase 133 U/L (73-393); Potassium 3.6 mmol/L (3.5-5.1); Protein, Total 7.5 g/dL (6.4-8.2); Sodium Level 138 mmol/L (136-145)
--- NOTE | 2018-12-11 18:17 | CT_ITS ---
STUDY: CTA CHEST REASON FOR EXAM: Male, 43 years old. Right flank pain and abdominal pain today RADIATION DOSAGE (If Supplied By Facility): CTDIvol = ( 8.6 ) mGy, DLP = ( 342.49 ) mGycm TECHNIQUE: The examination was performed with the intravenous administration of IV 100mL Isovue-370 100ML. Post-processing of the angiographic images was performed, with multiplanar reformation and 3D reconstruction. Individualized dose optimization techniques were used for this CT. COMPARISON: None. FINDINGS: Normal enhancement of the main pulmonary artery and right and left pulmonary arteries. Normal enhancement of the bilateral peripheral pulmonary arteries. There is no demonstrated pulmonary embolism. Normal thoracic aorta and visualized great vessels. There is no demonstrated aortic dissection. Normal heart and pericardium. Cardiomegaly. Normal mediastinum. Normal hilar regions. Normal visualized trachea and bronchi. The lungs are well expanded. Normal pulmonary parenchyma. Normal pleura. Normal chest wall structures. Normal osseous structures. Normal visualized upper abdomen. CT/CTA Chest W/WO Contrast IMPRESSION: Normal CTA chest examination, without a demonstrated pulmonary embolism or arterial dissection. Electronically Signed: Brayan Brown MD at 19:06 EDT , Service support ,
[2018-12-11 18:20] LABS: Bacteria 0 SEEN /hpf (None Seen); Mucous, Urine 0 SEEN /hpf (<or=2+); Red Blood Cells-Urine 0 SEEN /hpf (0-5)
[2018-12-11 18:21] LABS: Color, Urine Yellow (Yellow); Glucose, Dipstick Normal (Normal); Ketone-Dipstick Negative (Negative); Leukocyte Esterase-Dipstick Negative /ul (Negative); Nitrite-Dipstick Negative (Negative); Occult Blood-Urine Negative /ul (Negative); Protein-Dipstick Negative (Negative); Urine Bilirubin Dipstick Negative (Negative); Urine Clarity Sl. Cloudy (Clear); Urine Urobilinogen Normal (Normal)
[2018-12-11 18:42] LABS: Squamous Epithelial Cells - UA 0-5 SEEN /hpf (0-5)
[2018-12-11 18:43] LABS: White Blood Cells 0-5 SEEN /hpf (0-5)
[2018-12-11 19:19] VITALS: PULSE 71; RESP 15; O2SAT 98
--- NOTE | 2018-12-11 19:20 | ED.DEP ---
ED Disposition - Plan for ED Patient: Instructions: Chest Wall Strain Prescriptions: Naproxen [Naprosyn] 500 mg PO BID PRN #20 tablet Referrals: Nate Jacobo MD [Primary Care Provider] -
[2018-12-11 19:42] VITALS: BP 122/84
== END 2018-12-11 19:43 | disposition home or self-care (01) ==
LOC: ED 17:08
PROVIDERS: Emergency Provider Emergency Medicine; Family Provider Internal Medicine; PCP Internal Medicine
DX: R07.89 Other chest pain (principal); R10.11 Right upper quadrant pain
CPT/HCPCS: 71045; 71275; 80053; 81001; 83690; 84484; 85025; 93005; 96374; 96375; 99284; Q9967; A4216; J2405

== ENCOUNTER 2024-02-08 06:52 | Emergency (ER) | payer OTHER, SELFPAY ==
[2024-02-08 06:53] VITALS: BP 127/82; PULSE 78; RESP 18; TEMP 36.9; O2SAT 96; BMI 25.4
--- NOTE | 2024-02-08 07:11 | CT_ITS ---
STUDY: CT ABDOMEN AND PELVIS WITH CONTRAST REASON FOR EXAM: Male, 48 years old. Abdominal pain x3 days RADIATION DOSAGE (If Supplied By Facility): CTDIvol = ( 11.28 ) mGy, DLP = ( 640.89 ) mGycm TECHNIQUE: Transaxial images were obtained from the dome of the diaphragm to the symphysis pubis without oral contrast. IV 100mL Isovue-370 was administered. Sagittal and coronal images were reconstructed. Individualized dose optimization techniques were used for this CT. COMPARISON: None. FINDINGS: Minimal linear atelectasis at the lung bases. The visualized portions of the heart are within normal limits. There is decreased attenuation of the liver consistent with steatosis. Normal gallbladder and extrahepatic biliary system. Normal spleen. Normal pancreas. Normal bilateral adrenal glands. Normal right kidney. Normal left kidney. Normal visualized stomach. Normal small intestine. Normal colon. The appendix is visualized and appears normal. Normal abdominal aorta. Normal inferior vena cava. Normal retroperitoneum. Small benign appearing lymph nodes are seen in the root of the mesentery suggestive of a mesenteric adenitis. Normal urinary bladder. There is a small umbilical hernia containing fat. The neck of the hernia measures 1.8 cm. Small bilateral inguinal hernias containing fat. Small bilateral benign-appearing inguinal lymph nodes. There are degenerative changes of the visualized lumbar spine. CT/Abdomen/Pelvis W IV Cont ONLY IMPRESSION: Fatty infiltration of the liver. Small umbilical hernia as well as small bilateral inguinal hernias containing fat. Findings suggestive of mesenteric adenitis. Electronically Signed: Cecilio Johnson MD at 8:24 EST ,
--- NOTE | 2024-02-08 07:11 | EKG12_ITS ---
Test Reason : Blood Pressure : */* mmHG Vent. Rate : 73 BPM Atrial Rate : 73 BPM P-R Int : 160 ms QRS Dur : 82 ms QT Int : 400 ms P-R-T Axes : 29 -7 15 degrees QTcB Int : 440 ms Normal sinus rhythm Minimal voltage criteria for LVH, may be normal variant ( R in aVL ) Borderline ECG Confirmed by PALLAVI SMALL, YOEL ([id number]), food editor TIMO DAVIDSON ([id number]) on 02/09/2024 8:09:42 AM Referred By: Confirmed By: YOEL OLIVO MD
--- NOTE | 2024-02-08 07:12 | EDS_ITS ---
HPI HPI - GI History of Present Illness Chief Complaint: Abd Pain Detail of Chief Complaint: Abdominal pain Informant: patient and family Narrative Narrative: Patient is a [place]er-speaking 48-year-old presents with abdominal pain that has had for about 3 days. Pain became more severe yesterday. He points to the center of his abdomen as the location of pain. We did use the iPad mattress specialist to get history and he also has a sister with him who speaks Persian that can give some of the history. Patient currently rates his pain an 8 out of 10. He said no nausea or vomiting. Denies fever. Denies diarrhea. Denies blood in the stool or black tarry stool. He has not had no prior abdominal surgeries. Pain made worse by movement. Food does not seem to affect it. [facility] Medical History (Updated 02/08/24 @ 08:[address] Kane Baez, ) No pertinent past medical history Home Medications ?Medication ?Instructions ?Recorded ?Last Taken ?Type naproxen 500 mg tablet 500 mg PO BID PRN #20 tabs 12/11/18 Unknown Rx hydrocodone-acetaminophen 5-325mg 1 tab PO Q4H PRN PRN Pain 2 days 02/08/24 Unknown Rx 5mg-325mg #10 TABLETS lansoprazole 30 mg capsule,delayed 30 mg PO DAILY #14 caps 02/08/24 Unknown Rx release (Prevacid) Allergy/AdvReac Type Severity Reaction Status Date / Time No Known Allergies Allergy Verified 12/11/18 16:31 Social History (System 10/23/18 @ 14:14 by Madalyn Hatfield) Smoking Status: Never smoker ROS ROS ED Review of Systems ROS Unobtainable: other Constitutional Constitutional ED: Reports lethargy; Denies chills, fever(s), sweats or weight loss Eyes Eyes: Denies blurry vision, change in vision or diplopia ENT ENT ED: Denies rhinorrhea or sore throat Cardiovascular Cardiovascular: Denies chest pain, orthopnea or racing heartbeat Respiratory/Chest Respiratory/Chest: Denies cough, dyspnea, dyspnea on exertion, orthopnea or sputum Gastrointestinal Gastrointestinal: Reports abdominal pain; Denies diarrhea, nausea or vomiting Genitourinary Genitourinary ED: Denies dysuria, hematuria or urinary frequency Musculoskeletal Musculoskeletal: Denies arthralgias, back pain, myalgias or neck pain Integumentary Denies abscess, Abrasions or rash Neurologic Neurologic: Denies headache(s) or weakness Psychiatric Psychiatric: Denies anxiety, depression or suicidal thoughts Endocrine Endocrinology: Denies polydipsia, polyphagia or polyuria Hematologic/Lymphatic Hematologic/Lymphatic: Denies easy bleeding, easy bruising or lymphadenopathy Allergic/Immunologic Allergic/Immunologic ED: Denies mouth swelling, tongue swelling or urticaria EXAM Physical Exam Const Vital Signs: 02/08/24 06:53 Temperature 98.5 F Temperature Source Oral Pulse Rate 78 Respiratory Rate 18 Blood Pressure 127/82 H Blood Pressure Mean 97 Pulse Ox 96 Positive well nourished and well developed General Appearance ED: well developed and NAD HEENT Reports TM's clear and moist mucous membranes normocephalic and atraumatic; Negative for trauma or tenderness Tympanic Membrane ED: Yes TM's clear Eyes PERRL and EOMs intact bilaterally General Eye ED: Negative for pale conjunctiva or scleral icterus Neck no lymphadenopathy, supple and no JVD General: Negative for tenderness Chest Wall inspection of chest normal and palpation of chest normal Chest: Negative for tenderness Resp normal respiratory effort and clear to auscultation bilaterally Effort and Inspection: Negative for respiratory distress or pain with movement Auscultation: Negative for rhonchi, wheezes or diminished lung sounds Cardio regular rate, regular rhythm, S1 normal heart sound, S2 normal heart sound and no murmurs Peripheral Pulses: pulses 2+ throughout GI normal to inspection, nondistended, normoactive bowel sounds, soft to palpation, non-distended and no masses GI Narrative: Tenderness to palpation diffusely in the upper and lower abdomen. There is guarding. There is no rebound, rigidity, or peritoneal signs. No masses palpated. Back/Spine no CVA tenderness and no thoracic nor lumbar tenderness Extremity normal to inspection General Extremety ED: Negative for edema General Extremity: Negative for edema Neuro oriented x3, CN's II-XII intact bilaterally, no sensory deficits noted and gait normal Sensorium / Orientation: awake, alert, oriented to person, oriented to place and oriented to time Motor Exam: strength 5/5 throughout and strength abnormal Psych mental status grossly normal Skin no rashes or lesions noted and no wounds MDM MDM MDM Narrative Medical decision making narrative: Patient presents with abdominal pain x 3 days without significant other symptoms. Clinically he looks well and is nontoxic-appearing. He has diffuse abdominal discomfort on exam. CBC with differential white count of 13.4 which seems to be relatively chronic finding for him. With hemoglobin 14.2 and platelet count of 135. Chemistries were unremarkable. LFTs showed a slightly elevated total bilirubin of 2.2 which is a chronic finding for him AST and ALT and alk phos were all normal. Lactate was normal at 0.8. Lipase was normal at 29. We did obtain a CT scan of the abdomen pelvis with IV contrast that showed a small umbilical hernia as well as bilateral inguinal hernias containing fat. Normal appendix. Study consistent with mesenteric adenitis. While in the department I did medicate him with hydromorphone as well as Zofran. I ordered a GI cocktail. He was feeling improved after treatment. This point he will be discharged to home. Will give a prescription for a few [place] and Prevacid. Advised to follow-up with primary care physician in 3 to 5 days. Lab Data Attestation: I reviewed the patient's lab results. Labs: Laboratory Results - last 24 hr 02/08/24 02/08/24 06:59 07:23 WBC 13.4 H RBC 4.66 Hgb 14.2 Hct 41.2 MCV 88.4 MCH 30.5 MCHC 34.5 RDW Std Deviation 41.3 RDW Coeff of Gloria 12.8 Plt Count 135 L MPV 13.5 H Immature Gran % (Auto) 0.400 Neut % (Auto) 72.5 H Lymph % (Auto) 20.4 Cataño % (Auto) 4.9 Eos % (Auto) 1.6 Baso % (Auto) 0.2 Absolute Neuts (auto) 9.7 H Absolute Lymphs (auto) 2.72 Nucleated RBC % 0 Sodium 136 Potassium 3.8 Chloride 102 Carbon Dioxide 27.0 Anion Gap 7 BUN 13 Creatinine 1.07 Estim Creat Clear Calc 83.46 Est GFR (MDRD) Af Amer 95 Est GFR (MDRD) Non-Af 79 BUN/Creatinine Ratio 12.1 Glucose 159 H Lactic Acid 0.8 Calcium 7.2 L Total Bilirubin 2.20 H AST 18 ALT 19 Alkaline Phosphatase 101 Total Protein 8.1 Albumin 4.2 Globulin 3.9 Albumin/Globulin Ratio 1.1 Lipase 29 Radiography Diagnostic Testing: Clinical Impression(s) from Imaging Studies Abdomen/Pelvis CT 02/08/24 07:11 IMPRESSION: Fatty infiltration of the liver. Small umbilical hernia as well as small bilateral inguinal hernias containing fat. Findings suggestive of mesenteric adenitis. Electronically Signed: Cecilio Johnson MD at 8:24 EST , EKG Initial EKG: Attestation: I personally reviewed and interpreted this EKG as follows: Comments: Sinus rhythm with ventricular rate of 73 bpm with no acute ST segment changes Discharge Plan Triage Chief Complaint: Abd Pain ED Provider: Kane Baez Dx/Rx/DC Orders Clinical Impression: Abdominal pain Instructions: ED Abdominal Pain Unkn Cause Male... Prescriptions: New hydrocodone-acetaminophen 5-325 mg tablet 1 tab PO Q4H PRN PRN (Reason: Pain) 2 Days Qty: 10 0RF lansoprazole [Prevacid] 30 mg capsule,delayed release(DR/EC) 30 mg PO DAILY Qty: 14 0RF No Action naproxen 500 MG tablet 500 mg PO BID PRN Qty: 20 0RF Primary Care Provider: Nate Jacobo Referrals: Nate Jacobo MD [Primary Care Provider] - 3-5 Days Print Language: [place] Disposition Disposition: Home, Self Care
[2024-02-08] MEDS: 0.9% Normal Saline (1000mL) 1,000 ML 999 ML IV (07:20)
[2024-02-08] MEDS: Ondansetron 4 MG/2 ML Vial IV (07:21)
[2024-02-08] MEDS: HYDROmorphone 1 MG/ML Syringe IV (07:22)
[2024-02-08 07:45] LABS: Absolute Lymphocyte Count 2.72 X10^3/uL (0.83-4.51); Absolute Neutrophil Count 9.7 X10^3/uL (2.0-7.7); Basophil# 0.03 X10^3/uL; Basophil% 0.2 % (0-1); Eosinophil# 0.22 X10^3/uL; Eosinophils% 1.6 % (0-5); Hematocrit 41.2 % (40-54); Hemoglobin 14.2 g/dL (13.0-16.5); Lymphocyte # 2.72 X10^3/ul (0.83-4.51); Lymphocyte % 20.4 % (19-41); Mean Corp Hgb Conc 34.5 g/dL (32-36); Mean Corpuscular Hgb 30.5 pg (27.0-32.0); Mean Corpuscular Volume 88.4 fL (80-94); Mean Platelet Vol. 13.5 fl (6.2-12.0); Monocyte# 0.65 X10^3/uL; Monocyte% 4.9 % (0-10); NRBC Flagged by Analyzer 0 % (0-5); Neutrophil # 9.69 X10^3/uL (2.7-7.7); Neutrophil % 72.5 % (47-70); Platelet Count 135 K/mm3 (150-450); RBC Distribution Width CV 12.8 % (11.6-14.6); RBC Distribution Width SD 41.3 fl (35.1-43.9); Red Blood Count 4.66 M/mm3 (4.6-6.2); White Blood Count 13.4 K/mm3 (4.4-11.0)
[2024-02-08 07:53] LABS: Lactic Acid 0.8 mmol/L (0.4-1.9)
[2024-02-08 07:54] LABS: ALB/GLOB Ratio 1.1 RATIO (0.9-2.4); AST(SGOT) 18 U/L (15-37); Alanine Aminotransfer ALT/SGPT 19 U/L (16-61); Albumin, Serum 4.2 g/dL (3.2-5.0); Alkaline Phosphatase 101 U/L (45-117); Anion Gap 7 (5-15); BUN 13 mg/dL (7-18); BUN/Creat Ratio 12.1 RATIO (10-20); Calcium,Total 7.2 mg/dL (8.5-10.1); Chloride 102 mmol/L (98-107); Creatinine, Serum 1.07 mg/dL (0.70-1.30); EST Glomerular Filtration Rate 79 mL/min (>60); Est Glom Filt Rate - Afr Amer 95 mL/min (>60); Estimated Creatinine Clearance 83.46 ml/min; Globulin 3.9 g/dL (2.2-4.2); Glucose 159 mg/dL (74-106); Lipase 29 U/L (13-75); Potassium 3.8 mmol/L (3.5-5.1); Protein, Total 8.1 g/dL (6.4-8.2); Sodium Level 136 mmol/L (136-145)
[2024-02-08] MEDS: Lidocaine 2% Viscous15 ML UDC 15 ML PO (08:41)
[2024-02-08] MEDS: Mag Hydrox/Al Hydrox/Simeth 30 ML UDC PO (08:41)
[2024-02-08 09:14] VITALS: BP 128/74; PULSE 78; RESP 15; TEMP 36.8; O2SAT 99
== END 2024-02-08 09:17 | disposition home or self-care (01) ==
PROVIDERS: Emergency Provider Emergency Medicine; PCP Internal Medicine; Visit Provider Emergency Medicine
DX: R10.9 Unspecified abdominal pain (principal)
CPT/HCPCS: 74177; 80053; 83605; 83690; 85025; 93005; 96361; 96374; 96375; 99283; Q9967; A4216; J2405

== ENCOUNTER → 2024-05-27 | Outpatient (CLI) | payer OTHER, SELFPAY ==
[2024-05-27 11:23] LABS: Absolute Lymphocyte Count 2.67 X10^3/uL (0.83-4.51); Basophil# 0.04 X10^3/uL; Basophil% 0.5 % (0-1); Eosinophil# 0.25 X10^3/uL; Eosinophils% 3.4 % (0-5); Hematocrit 43.2 % (40-54); Hemoglobin 14.7 g/dL (13.0-16.5); Lymphocyte # 2.67 X10^3/ul (0.83-4.51); Lymphocyte % 36.4 % (19-41); Mean Corpuscular Hgb 30.1 pg (27.0-32.0); Mean Corpuscular Volume 88.5 fL (80-94); Mean Platelet Vol. 12.8 fl (6.2-12.0); Monocyte# 0.38 X10^3/uL; Monocyte% 5.2 % (0-10); NRBC Flagged by Analyzer 0 % (0-5); Neutrophil # 3.96 X10^3/uL (2.7-7.7); Neutrophil % 54.1 % (47-70); Platelet Count 151 K/mm3 (150-450); RBC Distribution Width CV 13.5 % (11.6-14.6); RBC Distribution Width SD 43.7 fl (35.1-43.9); Red Blood Count 4.88 M/mm3 (4.6-6.2); White Blood Count 7.3 K/mm3 (4.4-11.0)
[2024-05-27 11:33] LABS: International Normalized Ratio 0.8; Prothrombin Time (Protime)PT. 11.2 SECONDS (11.7-14.9)
[2024-05-27 11:42] LABS: ALB/GLOB Ratio 1.2 RATIO (0.9-2.4); AST(SGOT) 19 U/L (<=37); Alanine Aminotransfer ALT/SGPT 13 U/L (<=46); Albumin, Serum 4.7 g/dL (3.5-5.0); Alkaline Phosphatase 115 U/L (40-129); Anion Gap 13 (5-15); BUN 16 mg/dL (4-19); BUN/Creat Ratio 17.8 RATIO (10-20); CRP 7.41 mg/L (0.0-3.0); Calcium,Total 7.6 mg/dL (7.6-11.0); Carbon Dioxide 25.3 mmol/L (21.0-32.0); Chloride 100 mmol/L (98-108); Cholesterol 226 mg/dL (<=200); Creatinine, Serum 0.87 mg/dL (0.70-1.20); EST Glomerular Filtration Rate 107 (>60); Globulin 3.9 g/dL (2.2-4.2); Glucose 110 mg/dL (70-99); High Density Lipoprotein 41 mg/dL; Low Density Lipoprotein Calc. 99 mg/dL; Potassium 4.2 mmol/L (3.3-5.1); Protein, Total 8.6 g/dL (5.9-8.4); Sodium Level 138 mmol/L (133-145); Triglycerides 432 mg/dL; Very Low Density Lipoprotein 86 mg/dL (5-40); cholesterol:hdl ratio screen 5.53
[2024-05-27 11:43] LABS: Ammonia 12.6 umol/L (16-60)
[2024-05-27 12:35] LABS: Hemoglobin A1c 6.3 % (<=5.6)
[2024-05-28 15:08] LABS: Angiotensin Convert Enzyme 49 U/L (14-82); Anti-Centromere B Ab <0.2 AI (0.0-0.9); Anti-Chromatin <0.2 AI (0.0-0.9); Anti-Jo <0.2 AI (0.0-0.9); Anti-Mitochondrial AB <20.0 Units (0.0-20.0); Anti-Scleroderma-70 AB <0.2 AI (0.0-0.9); Anti-Smooth Muscle ABS 13 Units (0-19); Anti-dsDNA Ab <1 IU/mL (0-9); Cytoplasmic Ab (C-ANCA) <1:20 titer (Neg:<1:20); HEPATITIS B SURFACE AG Negative (Negative); Hep C Antibodies Non Reactive (Non Reactive); Hepatitis A IgM Antibody Negative (Negative); Hepatitis B Core AB IgM Negative (Negative); Perinuclear Ab (P-ANCA) <1:20 titer (Neg:<1:20); RNP Ab <0.2 AI (0.0-0.9); SJOGREN'S Anti-SS-A test < 0.2 AI (0.0-0.9); SJOGREN'S Anti-SS-B test < 0.2 AI (0.0-0.9); Smith Ab <0.2 AI (0.0-0.9); Transferrin 267 mg/dL (177-329)
== END | disposition home or self-care (01) ==
PROVIDERS: PCP Internal Medicine
DX: R59.0 Localized enlarged lymph nodes (principal); R10.11 Right upper quadrant pain
CPT/HCPCS: 36415; 80053; 80061; 80074; 82140; 82164; 83036; 83516; 84466; 85025; 85610; 86037; 86140; 86225; 86235

== ENCOUNTER → 2024-06-11 | Outpatient (CLI) | payer OTHER, SELFPAY ==
--- NOTE | 2024-06-11 09:59 | US_ITS ---
PROCEDURE: ABD LIMITED W/ ELASTOGRAPHY REASON FOR EXAM: ABDOMINAL PAIN Two-month history of right upper quadrant pain. COMPARISON: None. TECHNIQUE: Right upper quadrant abdominal ultrasound. [employer] ElastQ Imaging shear wave elastography for non-invasive assessment of liver tissue stiffness. [employer] EPIQ Elite. FINDINGS: LIVER: Size: Unremarkable Length: 16.6 cm Echotexture: Diffusely echogenic suggesting fatty infiltration. Focal fatty sparing adjacent to the gallbladder lumen. Contour: Normal Lesions: None identified Elastography: EQI Med: 8.6 kPa EQI Med Marc: 1.69 m/s IQR/Med: 16 %* GALLBLADDER: Normal COMMON BILE DUCT: Normal it measures 3 mm.. PANCREAS: Normal Visualized portions of the right kidney are unremarkable. No right upper quadrant ascites. US/ABD Limited w/ Elastography IMPRESSION: MODERATE HEPATIC FIBROSIS Fatty infiltration of the liver. Reference Values: SRU <1.37 m/s (5.7kPa): No to mild fibrosis 1.37 m/s - 2.2 m/s: Moderate to severe fibrosis >2.2 m/s (15kPa): Significant fibrosis / cirrhosis METAVIR Score F2 or higher: 1.34 m/s (5.7kPa) F3 or higher: 1.55 m/s (7.3kPa) F4: 1.80 m/s (10kPa) * If the IQR/Med is >30%, the variance in the measurements is a large and the a ccuracy of the measurement may be in question. Reading Location: [place] [id number]
== END | disposition home or self-care (01) ==
LOC: US 09:56
PROVIDERS: PCP Internal Medicine
DX: R10.11 Right upper quadrant pain (principal); R59.0 Localized enlarged lymph nodes
CPT/HCPCS: 76705; 76981

== ENCOUNTER → 2024-06-25 | Outpatient (CLI) | payer OTHER, SELFPAY ==
--- NOTE | 2024-06-25 08:09 | CT_ITS ---
PROCEDURE: ABDOMEN/PELVIS WITH CONTRAST 06/25/2024 REASON FOR EXAM: RUQ PAIN TECHNIQUE: Abdomen and pelvis CT with oral and intravenous contrast. Coronal and Sagittal reconstruction series were provided. PATIENT PREPARATION: Per protocol One or more dose reduction techniques were used (e.g., Automated exposure control, adjustment of the mA and/or kV according to patient size, use of iterative reconstruction technique. RADIATION DOSE SUMMARY: CTDlvol: 7.2 mGy DLP: 372.5 mGycm COMPARISON: CT abdomen and pelvis 02/08/2024, abdominal ultrasound on 06/11/2024 FINDINGS: Lung bases: Clear. Liver: Hypodense. Gallbladder: Unremarkable Spleen: Unremarkable Pancreas: Unremarkable Adrenals: Unremarkable Kidneys: No hydronephrosis or stone. Bladder: Unremarkable Reproductive Organs: Unremarkable Bowel: No obstruction or inflammation. Normal appendix. There is circumferential wall thickening and luminal narrowing at the mid aspect of the transverse colon (axial image 62 / coronal image 93) Lymph nodes: No significant lymphadenopathy. Vasculature: Unremarkable Peritoneum / Retroperitoneum: Unremarkable Bones: Mild degenerative changes of the spine. Soft tissues: Fat containing umbilical and left inguinal hernias. CT/Abdomen/Pelvis WITH Contrast IMPRESSION: 1. No acute intra-abdominal abnormality. 2. Circumferential wall thickening and luminal narrowing at the mid aspect of the transverse colon, concerning for underlying neoplasm. Consider colonoscopy if not recently performed. 3. Fat containing umbilical and left inguinal hernias. 4. Hepatic steatosis. Reading Location: [id number]
== END | disposition home or self-care (01) ==
LOC: CT 08:03
PROVIDERS: PCP Internal Medicine
DX: R10.11 Right upper quadrant pain (principal); R59.0 Localized enlarged lymph nodes
CPT/HCPCS: 74177; Q9967; A4216

== ENCOUNTER 2024-09-11 10:14 | Day surgery (SDC) | payer OTHER, SELFPAY ==
[2024-09-11] VITALS (9 sets, daily range): BP systolic 92–128; BP diastolic 67–92; PULSE 59–82; RESP 16–18; TEMP 36.3–36.7; O2SAT 97–100; BMI 24.1
[2024-09-11] MEDS: Lactated Ringers 1,000 ML 15 ML IV (10:34)
--- NOTE | 2024-09-11 10:49 | PRE.ANES_ITS ---
ASA Classification* ASA Classification ASA Classification: 2 Assessment & Plan Anesthesia* Anesthesia Assessment Anesthesia Assessment: Discussed sedation and/or anesthesia options, risks, benefits, and alternatives with patient/parents/legal guardian/POA. Questions invited. The patient/parents/legal guardian/POA seems to understand and agrees to proceed with anesthesia plan. Reviewed the physical assessment, medical history, allergy history and patient home medications list prior to surgery/procedure/anesthetic and documented any changes. Performed airway and anesthesia risk assessments. Anesthesia Type Anesthesia Type: MAC History Source History Obtained from:: Patient and Chart Anesthesia Focused Assessment* Temperature: 98.1 F Pulse Rate: 82 Blood Pressure: 128/92 Respiratory Rate: 16 Pulse Ox: 99 Oxygen Delivery Method: Room Air Airway Assessment Mouth opens: 2 cm Mallampati Score: IV Teeth Condition: Intact Neck Range of motion (ROM): Limited ROM (Slight Decrease) Labs Anesthesia Preop lab: CBC WBC 7.3 K/mm3 (4.4-11.0) 05/27/24 10:57 05/27/24 RBC 4.88 M/mm3 (4.6-6.2) 05/27/24 10:57 05/27/24 Hgb 14.7 g/dL (13.0-16.5) 05/27/24 10:57 05/27/24 Hct 43.2 % (40-54) 05/27/24 10:57 05/27/24 Plt Count 151 K/mm3 (150-450) 05/27/24 10:57 05/27/24 CHEMISTRY Potassium 4.2 mmol/L (3.3-5.1) 05/27/24 10:57 05/27/24 Sodium 138 mmol/L (133-145) 05/27/24 10:57 05/27/24 Magnesium 1.6 mg/dL (1.6-2.6) 05/11/18 06:03 05/11/18 BUN 16 mg/dL (4-19) 05/27/24 10:57 05/27/24 Creatinine 0.87 mg/dL (0.70-1.20) 05/27/24 10:57 05/27/24 Glucose 110 mg/dL (70-99) H 05/27/24 10:57 05/27/24 COAG PT 11.2 SECONDS (11.7-14.9) L 05/27/24 10:57 04/0 09/13 Pre-Assessment Diagnosis/Proposed Procedure Planned Operative Procedure(s): COLONOSCOPY Anesthesia History Anesthesia History - policy change clerk: Anesthesia History - policy change clerk Hx Hospitalization No 09/10/24 14:26 Any Problems With Anesthesia No 09/10/24 14:26 Cholinesterase deficiency No 09/10/24 14:26 You/Your Family Experience No 09/10/24 14:26 fever (hyperthermia) with Relationship Recent Exposure to Contagious No 09/11/24 10:35 Disease Does patient have nerve No 09/10/24 14:26 stimulator Patient instructed to have device shut off --Does patient have Pacemaker No 09/11/24 10:35 or ICD? When Was Last Pacemaker Check QUESTION #4 FULL TEXT: You/Your Family Experience fever (hyperthermia) with Anesthesia Last Oral Intake Last Oral intake: Last Oral Intake NPO since 00:00 09/11/24 10:35 Meds taken in AM with sips of No 09/11/24 10:35 water? Meds patient instructed to take am of surgery PONV PONV - policy change clerk: PONV - policy change clerk Female No 09/10/24 14:26 HX of Motion Sickness No 09/10/24 14:26 HX of N/V After Surgery No 09/10/24 14:26 Non-Smoker Yes 09/10/24 14:26 Duration of Surgery greater No 09/10/24 14:26 than 60 minutes Number of Risk Factors 1 09/10/24 14:26 PONV Score Low Risk 09/10/24 14:26 Height & Weight Height & Weight: Anesthesia: Height & Weight Height 5 ft 8 in 09/11/24 10:35 Weight: 72 kg 09/11/24 10:35 Body Mass Index (BMI) 24.1 09/11/24 10:35 Respiratory Assessment Respiratory Assessment - policy change clerk: Respiratory Tract Infection Hx - policy change clerk Hx Respiratory Tract Infection No 09/10/24 14:26 STOP Sleep Apnea STOP Sleep Apnea - policy change clerk: STOP Sleep Apnea - policy change clerk Hx Hypertension No 09/10/24 14:26 Hx Sleep Apnea No 09/10/24 14:26 CPAP BIPAP Do you snore loudly (louder No 09/10/24 14:26 than talking or can be heard Do you often feel tired/ No 09/10/24 14:26 fatigued/ sleepy during daytime? Has anyone observed you stop No 09/10/24 14:26 breathing during sleep? STOP Results Negative 09/10/24 14:26 QUESTION #5 FULL TEXT : Do you snore loudly (louder than talking or can be heard through closed doors)? 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 Specify any problems Hx of Preganancy in last 3 N/A 09/10/24 14:26 Months Nurse Filling Out Transfusion [email or web address] 09/10/24 14:26 & Questions: Date: 09/10/24 09/10/24 14:26 Time: 14:28 09/10/24 14:26 Patient unable to answer at this time (ie. confused, unrespo /Reproduction History /Reproductive History - policy change clerk: /Reproductive Hx- policy change clerk Hx Now Gestational Age (in weeks): EDC: Hx Hx Para Hx Section SAB Active Medications Active Medications: Current Medications Generic Name Dose Route Start Last Admin Trade Name Freq PRN Reason Stop Dose Admin Lactated Ringer's 1,000 mls @ 15 mls/hr 09/11/24 10:30 09/11/24 10:34 IV 15 mls/hr .Q48H SETH Administration PFSH Medical History Gastric reflux Home Medications Medication Instructions Recorded Last Taken Type naproxen 500 mg tablet 500 mg PO BID PRN #20 tabs 1 Unknown Rx hydrocodone-acetaminophen 5-325mg 1 tab PO Q4H PRN PRN Pain 2 days 02/08/24 Unknown Rx 5mg-325mg #10 TABLETS bisacodyl 5 mg tablet,delayed 20 mg (4 x 5 mg) PO ONCE #4 tabs 07/29/24 Unknown Rx release dicyclomine 10 mg capsule 10 mg PO TID PRN abdominal p ain 07/29/24 Unknown Rx #90 caps polyethylene glycol 3350 17 238 g PO ONCE #238 grams 0 07/29/24 Unknown Rx gram/dose oral powder (Miralax) pantoprazole 40 mg tablet,delayed 40 mg PO QDAY PRN GE RD 09/10/24 Unknown History release Allergy/AdvReac Type Severity Reaction Status Date / Time No Known Allergies Allergy Verified 09/11/24 10:35 Social History Smoking Status: Never smoker Review of Systems (Anesthesia) ROS Narrative System reviewed and no additional complaints, except as documented.
--- NOTE | 2024-09-11 11:17 | HP.PCM_ITS ---
HPI - General General Date of Admission: 09/11/24 Date of Service: 09/11/24 Chief Complaint: abdominal pain HPI Narrative INDIRA CRISOSTOMO, is a 49 M who presents for Chief Complaint: Nausea/Vomiting/AbdominalPain/SILVER 4..25 OV established with [facility] for complaints of RUQ abdominal pain. Differential diagnoses include: lymphadenopathy, fatty liver, cholecystitis, hepatitis, pancreatitis. Abdominal CT from 01.29.24 suggested fatty infiltration of liver and suggestion of mesenteric adenitis. Presence of small umbilical and small bilateral inguinal hernias. 25 repeat abd/pelvis CT w/PO and IV contrast - Circumferential wall thic kening and luminal narrowing at the mid aspect of the transverse colon, concerning for underlying neoplasm. Consider colonoscopy if not recently performed. Fat containing umbilical and left inguinal hernias. Hepatic steatosis. 06.11.24 liver US w/elastography - 16.6cm, 8.6kPa 6..25 OV He presents with his brother for Norwegian translation for communication. He reports improvement of nausea and vomiting. He continues to diffuse dull cramping abdominal pain allover. Reviewed negative hepatitis panel, abnormal cholesterol levels, and discussed CT results. He is taking the pantoprazole once daily in the morning and the dicyclomine twice daily. [facility] Medical History Gastric reflux Home Medications Medication Instructions Recorded Last Taken Type naproxen 500 mg tablet 500 mg PO BID PRN #20 tabs 1 Unknown Rx hydrocodone-acetaminophen 5-325mg 1 tab PO Q4H PRN PRN Pain 2 days 02/08/24 Unknown Rx 5mg-325mg #10 TABLETS bisacodyl 5 mg tablet,delayed 20 mg (4 x 5 mg) PO ONCE #4 tabs 07/29/24 Unknown Rx release dicyclomine 10 mg capsule 10 mg PO TID PRN abdominal p ain 07/29/24 Unknown Rx #90 caps polyethylene glycol 3350 17 238 g PO ONCE #238 grams 0 07/29/24 Unknown Rx gram/dose oral powder (Miralax) pantoprazole 40 mg tablet,delayed 40 mg PO QDAY PRN GE RD 09/10/24 Unknown History release Allergy/AdvReac Type Severity Reaction Status Date / Time No Known Allergies Allergy Verified 09/11/24 10:35 Social History Smoking Status: Never smoker ROS Constitutional Constitutional: Denies fatigue, fever(s), poor appetite, weight gain or weight loss Gastrointestinal Gastrointestinal: Denies belching, bloating, change in bowel habits, change in stool character, chewing difficulty, coffee ground emesis, constipation, cramping, diarrhea, dyspepsia, dysphagia, early satiety, excessive flatus, fecal incontinence, heartburn, hematemesis, hematochezia, hemorrhoids, loose stools, melena, nausea, odynophagia, rectal bleeding, tenesmus, vomiting or weight changes Vital Signs Vital Signs Vital Signs: 09/11/24 10:35 09/11/24 10:35 09/11/24 10:54 Temperature 98.1 F 98.1 F Temperature Source Temporal Pulse Rate 82 82 Respiratory Rate 16 16 Respiratory Pattern Normal Blood Pressure 128/92 H 128/92 H Blood Pressure Mean 104 Blood Pressure Source Monitor Blood Pressure Position Semi-Fowlers Blood Pressure Location Left Arm Pulse Ox 99 99 Oxygen Delivery Method Room Air Room Air Weight Weight: 158 lb 11.725 oz Body Mass Index (BMI) 24.1 Physical Exam Const alert, oriented x3, no apparent distress and healthy appearing General Appearance: cooperative GI normal to inspection, nondistended, normoactive bowel sounds, soft to palpation, non-tender and non-distended Percussion: normal to percussion Rectal Exam: deferred Assessment & Plan Assessment/Plan (1) Nausea & vomiting: QUALIFIERS: Vomiting type: unspecified Qualified Code(s): R11.2 - Nausea with vomiting, unspecified (2) RUQ abdominal pain: (3) Abdominal pain: QUALIFIERS: Abdominal location: generalized Qualified Code(s): R10.84 - Generalized abdominal pain PLAN: Assessment and Plan Assessment and Plan (1) Abdominal pain: Status: Chronic Qualifiers: Abdominal location: generalized Qualified Code(s): R10.84 - Generalized abdominal pain (2) Nausea & vomiting: Status: Acute Qualifiers: Vomiting type: unspecified Qualified Code(s): R11.2 - Nausea with vomiting, unspecified Medications: New polyethylene glycol 3350 (Miralax) to be taken prior to colonoscopy 238 grams PO ONCE 238 grams 0RF bisacodyl to be taken prior to colonoscopy 20 mg (4 x 5 mg) PO ONCE 4 tabs 0RF Changed From dicyclomine 10 mg PO BID PRN 60 caps 1RF abdominal pain To dicyclomine 10 mg PO TID PRN 90 caps 2RF abdominal pain From pantoprazole 40 mg PO DAILY 60 tabs 2RF To pantoprazole 40 mg PO QDAY 60 tabs 2RF Plan INDIRA MICHAEL CRISOSTOMO, is a 49 M who presents to the office today for FU. He reports improvement of nausea and vomiting. He continues to diffuse dull cramping abdominal pain allover. * schedule colonoscopy to assess internal tissue at circumferential wall thickening and lumen narrowing at the mid aspect of the transverse colon * continue pantoprazole 40mg PO daily * increase dicyclomine 10mg PO to TID PRN abdominal pain * office FU 1wk after colonoscopy
--- NOTE | 2024-09-11 11:30 | COLBX_PTH ---
PATIENT: INDIRA MCCOY LOC: EN U#:[id number] AGE/SX: 49/M ROOM: RE09/11/[address]: Dr. Nicho Bee DO : 1975 BED: DIS: 09/11/2024 SPEC #: [id number] RECD: 09/11/24 13:30 STATUS: KELLI REAbel #: [id number] LEANDRO: 09/11/24 11:[address]: Nicho Bee DEPT: SURGICAL PATHOLOGY RECD BY: Clemente Rodriguez ENTERED: 09/11/24 14:32 SP TYPE: COLON BX OTHR DR: Dr. Nate Jacobo MD Tissues: A - Ileum, NOS B - COLON BIOPSY C - Sigmoid colon biopsy Procedures: Trichrome (control) Special Stain Group I Surgery Specimen Level IV HEADER OPERATION: Colonoscopy with biopsy and polypectomy PRE-OP DIAGNOSIS: Nausea / vomiting, right upper quadrant abdominal pain TISSUE SUBMITTED: A- Terminal ileum biopsy, B- Random colon biopsy, C- Sigmoid colon polyp MICROSCOPIC DIAGNOSIS A. Terminal ileum, biopsy: - No specific pathologic change. B. Colon, random, biopsy: - Focal slight acute inflammation. - Negative for increased intraepithelial lymphocytes. - Trichrome stain is negative for thickening of the subepithelial collagen table. C. Sigmoid colon, polyp, biopsy: - Tubular adenoma. MICROSCOPIC DESCRIPTION Slides are reviewed. All matched controls reacted appropriately. These tests were developed and their performance characteristics determined by [facility]. They may not have been cleared or approved by the U.S. Food and Drug Administration. The FDA has determined that such clearance or approval is not necessary. The above immunohistochemical/dualISH markers are reviewed by the Pathologist. GROSS DESCRIPTION A. Received in fixative is one container labeled with the patient's name and designated "Terminal ileum biopsy." The specimen consists of four irregular fragments of light smiley soft tissue that in aggregate measure 0.2 to 0.4 cm. The specimen is totally submitted in one cassette. B. Received in fixative is one container labeled with the patient's name and designated "Random colon biopsy." The specimen consists of multiple irregular fragments of light smiley soft tissue that in aggregate measure 1.5 x 0.7 x 0.1 cm. The specimen is totally submitted in one cassette. C. Received in fixative is one container labeled with the patient's name and designated "Sigmoid colon polyp." The specimen consists of two irregular fragments of light smiley soft tissue that in aggregate measure <0.1 to 0.2 cm. The specimen is totally submitted in one cassette. *Smallest fragment may not survive processing. * PA 09/11/2024 CPT:24384u5,56895
--- NOTE | 2024-09-11 12:13 | OP.COLON_ITS ---
Patient Name: Dimitri Roberts Procedure Date: 09/11/2024 11:33 AM Date of : 1975 Age: 49 Procedure: Colonoscopy Indications: Abdominal pain in the left lower quadrant, Incidental abdominal distress noted, Incidental change in bowel habits noted Providers: Nicho Bee DO Referring MD: Nate Jacobo Medicines: Monitored Anesthesia Care Patient Profile: This is a 49 year old male. Refer to note in patient chart for documentation of history and physical. Last Colonoscopy: several years ago. Complications: No immediate complications. Procedure: Pre-Anesthesia Assessment: - Prior to the procedure, a History and Physical was performed, and patient medications and allergies were reviewed. The patient is competent. The risks and benefits of the procedure and the sedation options and risks were discussed with the patient. All questions were answered and informed consent was obtained. Patient identification and proposed procedure were verified by the physician in the pre-procedure area. Mental Status Examination: alert and oriented. Airway Examination: normal oropharyngeal airway and neck mobility. Respiratory Examination: clear to auscultation. CV Examination: normal. Prophylactic Antibiotics: The patient does not require prophylactic antibiotics. Prior Anticoagulants: The patient has taken no anticoagulant or antiplatelet agents except for NSAID medication. ASA Grade Assessment: II - A patient with mild systemic disease. After reviewing the risks and benefits, the patient was deemed in satisfactory condition to undergo the procedure. The anesthesia plan was to use monitored anesthesia care (MAC). Immediately prior to administration of medications, the patient was re-assessed for adequacy to receive sedatives. The heart rate, respiratory rate, oxygen saturations, blood pressure, adequacy of pulmonary ventilation, and response to care were monitored throughout the procedure. The physical status of the patient was re-assessed after the procedure. After I obtained informed consent, the scope was passed under direct vision. Throughout the procedure, the patient's blood pressure, pulse, and oxygen saturations were monitored continuously. The pediatric colonoscope was introduced through the anus and advanced to the terminal ileum. The colonoscopy was performed with ease. The patient tolerated the procedure well. The quality of the bowel preparation was adequate. The terminal ileum, ileocecal valve, appendiceal orifice, and rectum were photographed. Scope In: 11:44:39 AM Scope Withdrawal Time 0 hours 11 minutes 7 seconds Scope Out: 12:00:07 PM Total Procedure Duration Time 0 hours 15 minutes 28 seconds Findings: The perianal and digital rectal examinations were normal. Multiple small-mouthed diverticula were found in the sigmoid colon. A 5 mm polyp was found in the sigmoid colon. The polyp was sessile. The polyp was removed with a jumbo cold forceps. Resection and retrieval were complete. Verification of patient identification for the specimen was done. Estimated blood loss was minimal. An area of mildly congested mucosa was found in the sigmoid colon, in the descending colon and at the splenic flexure. Biopsies were taken with a cold forceps for histology. Verification of patient identification for the specimen was done. Estimated blood loss was minimal. A patchy area of the distal ileum was congested. Biopsies were taken with a cold forceps for histology. Verification of patient identification for the specimen was done. Estimated blood loss was minimal. External and internal hemorrhoids were found during retroflexion. The hemorrhoids were Grade I (internal hemorrhoids that do not prolapse). Impression: - Diverticulosis in the sigmoid colon. - One 5 mm polyp in the sigmoid colon, removed with a jumbo cold forceps. Resected and retrieved. - Congested mucosa in the sigmoid colon, in the descending colon and at the splenic flexure. Biopsied. - Congested mucosa in the distal ileum. Biopsied. Recommendation: - Discharge patient to home. - Resume previous diet. - Continue present medications. - Await pathology results. - Repeat colonoscopy in 5 years for surveillance. Procedure Code(s): --- Professional --- 99492, Colonoscopy, flexible; with biopsy, single or multiple CPT copyright 2021 [employer]. All rights reserved. The codes documented in this report are preliminary and upon transportation project manager review may be revised to meet current compliance requirements. Nicho Bee DO 09/11/2024 12:13:26 PM This report has been signed electronically. Number of Addenda: 0 Note Initiated On: 09/11/2024 11:33 AM
--- NOTE | 2024-09-11 12:13 | PCM.POST.ANE ---
Anesthesia: Postop Eval I Current Vital Signs Temperature: 97.3 F Pulse Rate: 64 Blood Pressure: 94/67 Respiratory Rate: 16 Pulse Ox: 98 Oxygen Delivery Method: Room Air Assessment Airway patent: Yes Spontaneous unlabored respirations: Yes Mental status: Asleep nausea: No Vomiting: No Anesthesia Complication: No Fluid Hydration Crystalloid volume administer (ml): 600 Total IV fluid infused: 600 Progress Note Anesthesia document: Postop Eval 1 completed: Yes
--- NOTE | 2024-09-11 12:14 | OP.CCLET_ITS ---
09/11/2024 Nate Jacobo [address] [place] [address] Re : Colonoscopy procedure for Dimitri Roberts Dear Dr. Jacobo This procedure was performed on Wednesday, September 11, 2024. My impressions and recommendations are as follows: Impressions : - Diverticulosis in the sigmoid colon. - One 5 mm polyp in the sigmoid colon, removed with a jumbo cold forceps. Resected and retrieved. - Congested mucosa in the sigmoid colon, in the descending colon and at the splenic flexure. Biopsied. - Congested mucosa in the distal ileum. Biopsied. Recommendations : - Discharge patient to home. - Resume previous diet. - Continue present medications. - Await pathology results. - Repeat colonoscopy in 5 years for surveillance. My findings are described in the full procedure note, which is enclosed. If I can be of further assistance, please feel free to contact me at . Sincerely, Nicho Bee, 09/11/2024 12:13:26 PM This report has been signed electronically.
--- NOTE | 2024-09-11 18:37 | PCM.POSTANE2 ---
Anesthesia Postop Eval I Sum Postop Eval Completion status Anesthesia document: Postop Eval 1 completed: Yes Anesthesia Postop Eval I Summary Anesthesia Postop Eval I Summary: Anesthesia Postop Eval I: Assessment Summary Airway patent Yes 09/11/24 12:13 [email or web address] Spontaneous unlabored Yes 09/11/24 12:13 [email or web address] respirations Mental status Asleep 09/11/24 12:13 [email or web address] nausea No 09/11/24 12:13 [email or web address] Vomiting No 09/11/24 12:13 [email or web address] Anesthesia Postop Eval I: Fluid Summary Crystalloid volume administer 600 09/11/24 12:13 [email or web address] (ml) Colloids volume administered ( ml) Blood Product volume administered (ml) Total IV fluid infused 600 09/11/24 12:13 [email or web address] Anesthesia Postop Eval I: Summary Notes Anesthesia Complication No 09/11/24 12:13 [email or web address] Anesthesia Complication Comment: Post-operative progress note Anesthesia: Postop Eval II Evaluation Mental status: Awake Pain Level: 0 nausea: No Vomiting: No
--- OUTSIDE RECORDS SUMMARY | 2024-09-11 18:52 | XMS RPT_ITS | CCD ---
Author Organization [facility] Care Team Providers Care Outside Maintenance Worker Name Role Phone Unavailable Primary Care Provider Unavailabl e MEMO HODGES Attending Unavailable Donnell SMALL, Dr. Sullivan Primary Care Provider Dr. Kane Baez DO Attending Provider Dr. Kane Baez DO Emergency Provider Dr. Nate Jacobo MD Referring Provider Bruno GOLF TEACHER-C, Ericka Attending Provider Bruno GOLF TEACHER-C, Ericka Referring Provider Dr. Nate Jacobo MD Primary Care Provider Bruno, Ericka Attending Unavailable Jacobo, Nate Primary Care Unavailable Carr, Ericka Referring Unavailable Jacobo, Nate Primary Care Unavailable Kane Baez Attending Unavailable Nicho Bee Attending Unavailable Jacobo, Nate Referring Unavailable Jacobo, Nate Primary Care Unavailable Jacobo, Nate Referring Unavailable Carr, Ericka Attending Unavailable Jacobo, Nate Primary Care Unavailable Jacobo, Nate Referring Unavailable Jacobo, Nate Primary Care Unavailable Carr, Ericka Attending Unavailable Jacobo, Nate Referring Unavailable Carr, Ericka Attending Unavailable Jacobo, Nate Primary Care Unavailable Carr, Ericka Attending Unavailable Carr, Ericka Referring Unavailable Jacobo, Nate Primary Care Unavailable Carr, Ericka Attending Unavailable Carr, Ericka Referring Unavailable Jacobo, Nate Primary Care Unavailable Friend Dr. Nicho ARVIZU Attending Provider Dr. Nicho Bee DO Other Provider Medications Current Medications Medication Drug Class(es) Dates Sig (Normalized) Sig (Original) azithromycin 250 mg oral tablet (1 source) Macrolide Antimicrobial Start: 04-18-2024 azithromycin (ZITHROMAX Z-SHEN) 250 mg tablet Indications: Bacterial sinusitis 2 tablets by mouth first day then 1 tablet the next 4 days 6 tablet 04/18/2024 Active bisacodyl 5 mg delayed release oral tablet (2 sources) Stimulant Laxative Start: 07-29-2024 take 4 tablets by mouth once Bisacodyl 5 mg tablet,delayed release (DR/EC) Active 20 mg PO ONCE 4 0 July 29, 2024 12:00am to be taken prior to colonoscopy dicyclomine hydrochloride 10 mg oral capsule (6 sources) Anticholinergic Start: 07-29-2024 take 1 capsule by mouth three times daily as needed for pain Dicyclomine 10 mg capsule Active 10 mg PO THREE TIMES A DAY as needed for abdominal pain 90 2 July 29, 2024 10:54am Start: 05-27-2024 End: 07-29-2024 take 1 capsule by mouth twice daily as needed for pain Dicyclomine 10 mg capsule Discontinued 10 mg PO TWICE A DAY as needed for abdominal pain 60 1 May 27, 2024 12:00am July 29, 2024 10:58am naproxen 500 mg oral tablet (4 sources) Nonsteroidal Anti-inflammatory Drug Start: 12-11-2018 take 1 tablet by mouth twice daily as needed Naproxen 500 MG tablet Active 500 mg PO TWICE DAILY NEEDED December 11, 2018 12:00am pantoprazole 40 mg delayed release oral tablet (7 sources) Proton Pump Inhibitor Start: 05-27-2024 End: 09-10-2024 take 1 tablet by mouth once daily as needed for gastroesophageal reflux disease Pantoprazole 40 mg tablet,delayed release (DR/EC) Active 40 mg PO daily as needed for GERD September 10, 2024 12:00am polyethylene glycol 3350 30649 mg powder for oral solution (2 sources) Osmotic Laxative Start: 07-29-2024 Polyethylene Glycol 3350 (Miralax) 17 gram/dose powder Active 238 g PO ONCE 238 0 July 29, 2024 12:00am to be taken prior to colonoscopy Completed/Discontinued Medications Medication Drug Class(es) Dates Sig (Normalized) Sig (Original) acetaminophen 325 mg / HYDROcodone bitartrate 5 mg oral tablet (5 sources) Opioid Agonist Start: 04-18-2024 End: 04-25-2024 take 1 tablet by mouth every six hours as needed HYDROcodone-aceta minophen (NORCO) 5-325 mg per tablet Indications: Abdominal pain, right upper quadrant Take 1 tablet by mouth every 6 hours as needed for up to 7 days. 28 tablet 04/18/2024 04/25/2024 Start: 02-08-2024 take 1 tablet by priti th every four hours as needed for pain Hydrocodone-Acetaminophen 5-325 mg table t Active 1 {tbl} PO EVERY 4 HOURS NEEDED as needed for Pain 10 2 0 February 08, 2024 Abdominal pain Unspecified abdominal pain lansoprazole 30 mg delayed release oral capsule (4 sources) Proton Pump Inhibitor Start: 02-08-2024 End: 05-27-2024 take 1 capsule by mouth once daily Lansoprazole (Prevacid) 30 mg capsule,delayed release(DR/EC) Discontinued 30 mg PO DAILY 14 0 February 08, 2024 1:00am May 27, 2024 10:43am lidocaine hydrochloride 20 mg/ml mucous membrane topical solution (4 sources) Antiarrhythmic, Amide Local Anesthetic Start: 05-10-2018 End: 05-12-2018 take 1 mL by mouth every four hours as needed Lidocaine Hcl (Lidocaine Viscous) 180 ML Ml Discontinued 10 - 15 mL PO EVERY 4 HOURS NEEDED as needed for Sore Throat May 10, 2018 12:00am May 12, 2018 10:23am Problems Active Problems Problem Classification Problem Date Documented Da te Episodic/Chronic Abdominal pain (20 sources) Right upper quadrant pain; Translations: [Right upper quadrant pain] Onset: 04-18-2024 05-05-2024 Episodic Bacterial infection; unspecified site (1 source) Other specified bacterial agents as the cause of diseases classified elsewhere; Translations: [Bacterial sinusitis] Onset: 04-18-2024 Episodic Disorders of lipid metabolism (1 source) Mixed hyperlipidemia; Translations: [Mixed hyperlipidemia] Onset: 06-19-2018 06-19-2018 Chronic Lymphadenitis (9 sources) Mesenteric lymphadenopathy; Translations: [Localized enlarged lymph nodes] Onset: 05-30-2024 05-27-2024 Episodic Nausea and vomiting (3 sources) Nausea and vomiting; Translations: [Nausea with vomiting, unspecified] 07-29-2024 Episodic Other nutritional; endocrine; and metabolic disorders (4 sources) Hypocalcemia; Translations: [Hypocalcemia] 10-23-2018 Chronic Other upper respiratory infections (2 sources) Bacterial sinusitis; Translations: [Chronic sinusitis, unspecified] Onset: 04-18-2024 04-18-2024 Chronic Other upper respiratory infections (4 sources) Upper respiratory infection; Translations: [Acute upper respiratory infection, unspecified] 08-06-2018 Episodic Pneumonia (except that caused by tuberculosis or sexually transmitted disease) (4 sources) Community acquired pneumonia; Translations: [Pneumonia, unspecified organism] 10-23-2018 Episodic Septicemia (except in labor) (4 sources) Sepsis; Translations: [Sepsis, unspecified organism] 10-23-2018 Episodic Past or Other Problems Problem Classification Problem Date Documented Da te Episodic/Chronic Other non-traumatic joint disorders (1 source) Hand joint pain; Translations: [Pain in joints of unspecified hand] Onset: 04-04-2008 Resolved: 06-13-2011 06-13-2011 Episodic Other non-traumatic joint disorders (1 source) Shoulder joint pain; Translations: [Pain in unspecified shoulder] Onset: 05-31-2013 Resolved: 06-11-2018 06-11-2018 Episodic Spondylosis; intervertebral disc disorders; other back problems (1 source) Left cervical root neuropathy; Translations: [Radiculopathy, cervical region] Onset: 05-27-2014 Resolved: 06-11-2018 06-11-2018 Episodic Results Test Name Value Interpretation Reference Range Facility Gastroenterology Visit [facility] 07-29-2024 Gastroenterology Visit Report [facility] Gastroenterology [address] [place] [address] OFFICE VISIT Date of Service: 07/29/24 MR#: [id number] Acct: [id number] Name: DIMITRI MCCOY Rep #: [id number] : 1975 Provider: HEATHER rosario Age/Sex: 49/M [place] [facility]: Signed Intake Vital Signs 02/08/24 06:53 Height 5 ft 8 in Intake Visit Reasons: follow up Chief Complaint: Nausea/Vomiting/Abdom inalPain/SILVER Allergies No Known Allergies Allergy (Verified 07/29/24 10:35) Medications ???Medication ???Instructions ???Recorded ???Confirmed ???Type naproxen 500 mg tablet 500 mg PO BID PRN #20 tabs 9 07/29/24 Rx hydrocodone-acetamino phen 5-325mg 1 tab PO Q4H PRN PRN Pain 2 days 02/08/24 07/29/24 Rx 5mg-325mg #10 TABLETS bisacodyl 5 mg tablet,delayed 20 mg (4 x 5 mg) PO ONCE #4 tabs 0 07/29/24 07/29/24 Rx release dicyclomine 10 mg capsule 10 mg PO TID PRN abdominal pain 07/29/24 Rx #90 caps pantoprazole 40 mg tablet,delayed 40 mg PO QDAY #60 tabs 07/29/24 0 07/29/24 Rx release polyethylene glycol 3350 17 238 g PO ONCE #238 grams 07/29/24 07/29/24 Rx gram/dose oral powder (Miralax) Nurse's Note: Patient is here for a follow up and states that he is still having pain, medicine helped a little bit but the discomfort is still there. No nausea or vomiting at this time. PFSH Medical History No pertinent past medical history Social History Smoking Status: Never smoker HPI HPI Chief Complaint: Nausea/Vomiting/Abdom inalPain/SILVER Details: DIMITRI CRISOSTOMO, is a 49 M who presents to the office today for FU. 05.27.24 OV established with [facility] for complaints of RUQ abdominal pain. Differential diagnoses include: lymphadenopathy, fatty liver, cholecystitis, hepatitis, pancreatitis. Abdominal CT from 01.29.24 suggested fatty infiltration of liver and suggestion of mesenteric adenitis. Presence of small umbilical and small bilateral inguinal hernias. 06.25.24 repeat abd/pelvis CT w/PO and IV contrast - Circumferential wall thickening and luminal narrowing at the mid aspect of the transverse colon, concerning for underlying neoplasm. Consider colonoscopy if not recently performed. Fat containing umbilical and left inguinal hernias. Hepatic steatosis. 06.11.24 liver US w/elastography - 16.6cm, 8.6kPa 07.29.24 OV He presents with his brother for Lebanese translation for communication. He reports improvement of nausea and vomiting. He continues to diffuse dull cramping abdominal pain allover. Reviewed negative hepatitis panel, abnormal cholesterol levels, and discussed CT results. He is taking the pantoprazole once daily in the morning and the dicyclomine twice daily. ROS Const Constitutional: Positive for fatigue and decreased energy; No chills or weight change Eyes Eyes: No change in vision ENT ENT: No abnormal hearing or difficulty swallowing Resp Respiratory: No cough Cardio Cardiology: No chest pain at rest, chest pain with exertion or leg pain with exertion Gastro GI: Positive for abdominal pain; No belching, bloating, change in bowel habits, change in stool character, coffee ground emesis, constipation, cramping, diarrhea, heartburn, difficulty swallowing, feeling full early, excessive flatus, incontinent of stools, Vomiting blood/hematemesis, Blood in stool, loose stools, Black,tarry stools, nausea/dyspepsia, pain with swallowing, vomiting or other Musc Musculoskeletal: Positive for back pain; No leg pain with exertion Skin Skin: No yellowing of the eye or itchy eyes Neuro Neurology: No abnormal hearing Psych Psychiatric: No anxiety and No depression Endo Endocrine: Positive for fatigue; No cold intolerance, heat intolerance or weight change Aller/Imm Allergy/Immunologic: No food intolerance or itchy eyes Edward/Lymp Hematologic/Lymphatic : No easy bleeding or easy bruising Exam Const General: cooperative, healthy appearing, comfortable and no acute distress Nutritional Appearance: average body habitus Orientation: alert and oriented x3 [facility] Head: normal to inspection Ears: hearing grossly normal bilaterally Eyes General: appearance normal, both eyes and all related structures Sclera: sclerae normal Neck Neck: normal visual inspection and full ROM Chest Chest palpation inspection: normal inspection of the chest Resp Effort Inspection: normal respiratory effort, able to speak in complete sentences and symmetric chest movement GI Inspection: normal to inspection Palpation: soft, no hepatosplenomegaly, no guarding and tender periumbilically; Hawley's sign negative and with no rebound tenderness Skin General: no rashes or lesions noted Neuro General: p (more content not included)... Normal [facility] Abdomen/Pelvis WITH Contrast on 06-25-2024 Abdomen/Pelvis WITH Contrast [facility] Imaging Services [address] [place] [address] [id number] Abdomen/Pelvis WITH Contrast MR#: [id number] Acct: [id number] Name: DIMITRI MCCOY Rep #: [id number] : 1975 M 49 From: Zack Boudreaux MD PCP: Dr. Nate Jacobo MD Status: REG CLI Study: Abdomen/Pelvis WITH Contrast Date of Exam: 08/14 Exam# [id number] Ordering Dr: Ericka Carr PROCEDURE: ABDOMEN/PELVIS WITH CONTRAST 06/25/2024 REASON FOR EXAM: RUQ PAIN TECHNIQUE: Abdomen and pelvis CT with oral and intravenous contrast. Coronal and Sagittal reconstruction series were provided. PATIENT PREPARATION: Per protocol One or more dose reduction techniques were used (e.g., Automated exposure control, adjustment of the mA and/or kV according to patient size, use of iterative reconstruction technique. RADIATION DOSE SUMMARY: CTDlvol: 7.2 mGy DLP: 372.5 mGycm COMPARISON: CT abdomen and pelvis 02/08/2024, abdominal ultrasound on 06/11/2024 FINDINGS: Lung bases: Clear. Liver: Hypodense. Gallbladder: Unremarkable Spleen: Unremarkable Pancreas: Unremarkable Adrenals: Unremarkable Kidneys: No hydronephrosis or stone. Bladder: Unremarkable Reproductive Organs: Unremarkable Bowel: No obstruction or inflammation. Normal appendix. There is circumferential wall thickening and luminal narrowing at the mid aspect of the transverse colon (axial image 62 / coronal image 93) Lymph nodes: No significant lymphadenopathy. Vasculature: Unremarkable Peritoneum / Retroperitoneum: Unremarkable Bones: Mild degenerative changes of the spine. Soft tissues: Fat containing umbilical and left inguinal hernias. CT/Abdomen/Pelvis WITH Contrast IMPRESSION: 1. No acute intra-abdominal abnormality. 2. Circumferential wall thickening and luminal narrowing at the mid aspect of the transverse colon, concerning for underlying neoplasm. Consider colonoscopy if not recently performed. 3. Fat containing umbilical and left inguinal hernias. 4. Hepatic steatosis. Reading Location: [id number] CC: HEATHER Carr; Dr. Nate Jacobo MD Draw Tender: Signed Normal [facility] ABD Limited w/ Elastographyo n 06-11-2024 ABD Limited w/ Elastography [facility] Imaging Services [address] [place] [address] ABD Limited w/ Elastography MR#: [id number] Acct: [id number] Name: DIMITRI MCCOY Rep #: [id number] : 1975 M 49 From: Cecilio ramos MD PCP: Dr. Nate Jacobo MD Status: REG CLI Study: ABD Limited w/ Elastography Date of Exam: 05/22 04/16 Exam# [id number] Ordering Dr: rEicka Carr PROCEDURE: ABD LIMITED W/ ELASTOGRAPHY REASON FOR EXAM: ABDOMINAL PAIN Two-month history of right upper quadrant pain. COMPARISON: None. TECHNIQUE: Right upper quadrant abdominal ultrasound. Jerrell ElastQ Imaging shear wave elastography for non- invasive assessment of liver tissue stiffness. Jerrell EPIQ Elite. FINDINGS: LIVER: Size: Unremarkable Length: 16.6 cm Echotexture: Diffusely echogenic suggesting fatty infiltration. Focal fatty sparing adjacent to the gallbladder lumen. Contour: Normal Lesions: None identified Elastography: EQI Med: 8.6 kPa EQI Med Marc: 1.69 m/s IQR/Med: 16 %* GALLBLADDER: Normal COMMON BILE DUCT: Normal it measures 3 mm.. PANCREAS: Normal Visualized portions of the right kidney are unremarkable. No right upper quadrant ascites. US/ABD Limited w/ Elastography IMPRESSION: MODERATE HEPATIC FIBROSIS Fatty infiltration of the liver. Reference Values: SRU <1.37 m/s (5.7kPa): No to mild fibrosis 1.37 m/s - 2.2 m/s: Moderate to severe fibrosis >2.2 m/s (15kPa): Significant fibrosis / cirrhosis METAVIR Score F2 or higher: 1.34 m/s (5.7kPa) F3 or higher: 1.55 m/s (7.3kPa) F4: 1.80 m/s (10kPa) * If the IQR/Med is >30%, the variance in the measurements is a large and the accuracy of the measurement may be in question. Reading Location: [place] [address] CC: HEATHER Carr; Dr. Nate Jacobo MD Draw Tender: Signed Normal [facility] Panel HERRERA TABLE Comment Normal . [facility] Comment on above: Result Comment: Auto antibody Disease Association -- Condition Frequency --------- Antinuclear Antibody, SLE, mixed connective Direct (HERRERA-D) tissue diseases --------- dsDNA SLE 40 - 60% --------- Chromatin Drug induced SLE 90% SLE 48 - 97% --------- SSA (Ro) SLE 25 - 35% Sjogren's Syndrome 40 - 70% Lupus 100% --------- SSB (La) SLE 10% Sjogren's Syndrome 30% --------- Sm (anti-Bowden) SLE 15 - 30% --------- TRASH TRUCK DRIVER Mixed Connective Tissue Disease 95% (U1 nRNP, SLE 30 - 50% anti-ribonucleoprotein) Polymyositis and/or Dermatomyositis 20% --------- Scl-70 (antiDNA Scleroderma (diffuse) 20 - 35% topoisomerase) Crest 13% --------- Guadalupe-1 Polymyositis and/or Dermatomyositis 20 - 40% --------- Centromere B Scleroderma - Crest variant 80% AMENDED REPORT 05/28/241507 COMMENT previously reported as: Test not performed Performed By: #### L 501.9985, L803.2200, L800.1280, L500.4050, L3400.3800, L500.4100, L503.5510, L3300.1200, L3100.6900, L100.0100, L300.3900, L3000.0375, L3100.5440, L501.6710 #### [facility] [place], [address] ANTI-CENT B AB <0.2 Normal 0.0-0.9 [facility] Comment on above: Result Comment: AMENDED REPORT 05/28/242 ANTI-CENT B previously reported as: Test not performed Performed By: #### L 501.9985, L803.2200, L800.1280, L500.4050, L3400.3800, L500.4100, L503.5510, L3300.1200, L3100.6900, L100.0100, L300.3900, L3000.0375, L3100.5440, L501.6710 #### [facility] [address] [place], [address] ANTI-DNA (DS)AB <1 Normal 0-9 [facility] Comment on above: Result Comment: Nega tive <5 Equivocal 5 - 9 Positive >9 AMENDED REPORT 05/28/243 dsDNA AB previously reported as: Test not performed Performed By: #### L 501.9985, L803.2200, L800.1280, L500.4050, L3400.3800, L500.4100, L503.5510, L3300.1200, L3100.6900, L100.0100, L300.3900, L3000.0375, L3100.5440, L501.6710 #### [facility] [address] [place], [address] ANTI-GUADALUPE-1 <0.2 Normal 0.0-0.9 [facility] Comment on above: Result Comment: AMENDED REPORT 05/28/240 ANTI-GUADALUPE previously reported as: Test not performed Performed By: #### L 501.9985, L803.2200, L800.1280, L500.4050, L3400.3800, L500.4100, L503.5510, L3300.1200, L3100.6900, L100.0100, L300.3900, L3000.0375, L3100.5440, L501.6710 #### [facility] [address] [place], [address] ANTI-SS-A < 0.2 Normal 0.0-0.9 [facility] Comment on above: Result Comment: AMENDED REPORT 05/28/24 1504 Anti-SS-A previously reported as: Test not performed Performed By: #### L 501.9985, L803.2200, L800.1280, L500.4050, L3400.3800, L500.4100, L503.5510, L3300.1200, L3100.6900, L100.0100, L300.3900, L3000.0375, L3100.5440, L501.6710 #### [facility] [address] [place], [address] ANTI-SS-B < 0.2 Normal 0.0-0.9 [facility] Comment on above: Result Comment: AMENDED REPORT 05/28/24 1508 Anti-SS-B previously reported as: Test not performed Performed By: #### L 501.9985, L803.2200, L800.1280, L500.4050, L3400.3800, L500.4100, L503.5510, L3300.1200, L3100.6900, L100.0100, L300.3900, L3000.0375, L3100.5440, L501.6710 #### [facility] [address] [place], [address] ANTICHROMATIN <0.2 Normal 0.0-0.9 [facility] Comment on above: Result Comment: AMENDED REPORT 05/28/24 150 ANTICHROMATIN previously reported as: Test not performed Performed By: #### L 501.9985, L803.2200, L800.1280, L500.4050, L3400.3800, L500.4100, L503.5510, L3300.1200, L3100.6900, L100.0100, L300.3900, L3000.0375, L3100.5440, L501.6710 #### [facility] [address] [place], [address] ANTISCLERODERM <0.2 Normal 0.0-0.9 [facility] Comment on above: Result Comment: AMENDED REPORT 05/28/241507 ANTISCLER previously reported as: Test not performed Performed By: #### L 501.9985, L803.2200, L800.1280, L500.4050, L3400.3800, L500.4100, L503.5510, L3300.1200, L3100.6900, L100.0100, L300.3900, L3000.0375, L3100.5440, L501.6710 #### [facility] [address] [place], [address] TRASH TRUCK DRIVER Ab <0.2 Normal 0.0-0.9 [facility] Comment on above: Result Comment: AMENDED REPORT 05/28/241507 TRASH TRUCK DRIVER Ab previously reported as: Test not performed Performed By: #### L 501.9985, L803.2200, L800.1280, L500.4050, L3400.3800, L500.4100, L503.5510, L3300.1200, L3100.6900, L100.0100, L300.3900, L3000.0375, L3100.5440, L501.6710 #### [facility] [address] [place], [address] BOWDEN Ab <0.2 Normal 0.0-0.9 [facility] Comment on above: Result Comment: AMENDED REPORT 05/28/241507 BOWDEN Ab previously reported as: Test not performed Performed By: #### L 501.9985, L803.2200, L800.1280, L500.4050, L3400.3800, L500.4100, L503.5510, L3300.1200, L3100.6900, L100.0100, L300.3900, L3000.0375, L3100.5440, L501.6710 #### [facility] [address] [place], [place], [id number] ANCAon 05-28-2024 Atypical pANCA <1:20 Normal Neg:<1:20 [facility] Comment on above: Result Comment: The atypical pANCA pattern has been observed in a significant percentage of patients with ulcerative colitis, primary sclerosing cholangitis and autoimmune hepatitis. Performed By: #### L 501.9985, L803.2200, L800.1280, L500.4050, L3400.3800, L500.4100, L503.5510, L3300.1200, L3100.6900, L100.0100, L300.3900, L3000.0375, L3100.5440, L501.6710 ####[facility] [address] [place], [address] Cytoplasmic Ab <1:20 Normal Neg:<1:20 [facility] Comment on above: Performed By: #### L 501.9985, L803.2200, L800.1280, L500.4050, L3400.3800, L500.4100, L503.5510, L3300.1200, L3100.6900, L100.0100, L300.3900, L3000.0375, L3100.5440, L501.6710 ####[facility] [address] [place], [place], [id number] Perinuclear Ab. <1:20 Normal Neg:<1:20 [facility] Comment on above: Result Comment: The presence of positive fluorescence exhibiting P-ANCA or C-ANCA patterns alone is not specific for the diagnosis of Gabriel's Granulomatosis (WG) or microscopic polyangiitis. Decisions about treatment should not be based solely on ANCA IFA results. The International ANCA Group Consensus recommends follow up testing of positive sera with both TX- 3 and MPO-ANCA enzyme immunoassays. As many as 5% serum samples are positive only by EIA. Ref. AM J Clin Pathol 1999;111:507-513. Performed By: #### L 501.9985, L803.2200, L800.1280, L500.4050, L3400.3800, L500.4100, L503.5510, L3300.1200, L3100.6900, L100.0100, L300.3900, L3000.0375, L3100.5440, L501.6710 ####[facility] [address] [place], [place], [id number] Angiotensin Convert Enzymeon 05-28-2024 ANGIOT-CONV.ENZ 49 U/L Normal 14-82 [facility] Comment on above: Performed By: #### L 501.9985, L803.2200, L800.1280, L500.4050, L3400.3800, L500.4100, L503.5510, L3300.1200, L3100.6900, L100.0100, L300.3900, L3000.0375, L3100.5440, L501.6710 ####[facility] [address] [place], [place], [id number] Anti-Mitochondrial ABon 04-0 ANTIMITOCHON AB <20.0 Normal 0.0-20.0 [facility] Comment on above: Result Comment: Nega tive 0.0 - 20.0 Equivocal 20.1 - 24.9 Positive >24.9 Mitochondrial (M2) Antibodies are found in 90-96% of patients with primary biliary cirrhosis. Performed at: [address] [id number] Employment And Claims Aide: Danny Gandara PhD, Phone: [phone] Performed By: #### L 501.9985, L803.2200, L800.1280, L500.4050, L3400.3800, L500.4100, L503.5510, L3300.1200, L3100.6900, L100.0100, L300.3900, L3000.0375, L3100.5440, L501.6710 ####[facility] [address] [place], [place], [id number] Anti-Smooth Muscle ABSon ANTISMOOTH MUSC 13 Units Normal 0-19 [facility] Comment on above: Result Comment: Nega tive 0 - 19 Weak positive 20 - 30 Moderate to strong positive >30 Actin Antibodies are found in 52-85% of patients with autoimmune hepatitis or chronic active hepatitis and in 22% of patients with primary biliary cirrhosis. Performed By: #### L 501.9985, L803.2200, L800.1280, L500.4050, L3400.3800, L500.4100, L503.5510, L3300.1200, L3100.6900, L100.0100, L300.3900, L3000.0375, L3100.5440, L501.6710 ####[facility] [address] [place], [address] Hepatitis Panel Acuteon 04-0 COMMENT Comment Normal . [facility] Comment on above: Result Comment: Not infected with HCV unless early or acute infection is suspected (which may be delayed in an immunocompromised individual), or other evidence exists to indicate HCV infection. Performed By: #### L 501.9985, L803.2200, L800.1280, L500.4050, L3400.3800, L500.4100, L503.5510, L3300.1200, L3100.6900, L100.0100, L300.3900, L3000.0375, L3100.5440, L501.6710 ####[facility] [address] [place], [address] HEP B CORE,IgM Negative Normal Negative [facility] Comment on above: Performed By: #### L 501.9985, L803.2200, L800.1280, L500.4050, L3400.3800, L500.4100, L503.5510, L3300.1200, L3100.6900, L100.0100, L300.3900, L3000.0375, L3100.5440, L501.6710 ####[facility] [address] [place], [address] HEP B SURF AG Negative Normal Negative [facility] Comment on above: Performed By: #### L 501.9985, L803.2200, L800.1280, L500.4050, L3400.3800, L500.4100, L503.5510, L3300.1200, L3100.6900, L100.0100, L300.3900, L3000.0375, L3100.5440, L501.6710 ####[facility] [address] [place], [address] HEP C VIRUS AB Non-Reactive Normal Non Reactive [facility] Comment on above: Performed By: #### L 501.9985, L803.2200, L800.1280, L500.4050, L3400.3800, L500.4100, L503.5510, L3300.1200, L3100.6900, L100.0100, L300.3900, L3000.0375, L3100.5440, L501.6710 ####[facility] [address] [place], [address] HEPATITIS A-IgM Negative Normal Negative [facility] Comment on above: Result Comment: A ne gative anti-HAV IgM result suggests no recent or current HAV infection. Performed By: #### L 501.9985, L803.2200, L800.1280, L500.4050, L3400.3800, L500.4100, L503.5510, L3300.1200, L3100.6900, L100.0100, L300.3900, L3000.0375, L3100.5440, L501.6710 ####[facility] [address] [place], [address] Transferrinon 05-28-2024 Transferrin [Mass/Vol] 267 mg/dL Normal 177-329 [facility] Comment on above: Result Comment: Perf ormed at: - [facility] [id number] Employment And Claims Aide: Danny Gandara PhD, Phone: [phone] Performed By: #### L 501.9985, L803.2200, L800.1280, L500.4050, L3400.3800, L500.4100, L503.5510, L3300.1200, L3100.6900, L100.0100, L300.3900, L3000.0375, L3100.5440, L501.6710 ####[facility] [address] [place], [address] Absolute lymphocyte countOrd ered By: Ericka Carr on 05-27-2024 Lymphocytes Auto (Unsp spec) [#/Vol] 2.67 10*3/uL 0.83-4.51 [facility] Absolute neutrophil countOrd ered By: Ericka Carr on 05-27-2024 Neutrophils (Bld) [#/Vol] 4.0 10*3/uL 2.0-7.7 [facility] Actin IgG QnOrdered By: Catalina Carr on 05-27-2024 Anti-Smooth Muscle Antibody 13 Units 0-19 [facility] Comment on above: Negative 0 - 19 Weak positive 20 - 30 Moderate to strong positive >30 Actin Antibodies are found in 52-85% of patients with autoimmune hepatitis or chronic active hepatitis and in 22% of patients with primary biliary cirrhosis. Ammoniaon 05-27-2024 Ammonia (P) [Moles/Vol] 12.6 umol/L Low 16-60 [facility] Comment on above: Performed By: #### L 501.9985, L803.2200, L800.1280, L500.4050, L3400.3800, L500.4100, L503.5510, L3300.1200, L3100.6900, L100.0100, L300.3900, L3000.0375, L3100.5440, L501.6710 #### [facility] [address] [place], [address] Anion gap in Serum or Plasma Ordered By: Ericka Carr on 05-27-2024 Anion gap [Moles/Vol] 13 mmol/L 5-15 [facility] Atypical perinuclear antineu trophil cytoplasmic antibodies measurementOrdered By: Ericka Carr on 05-27-2024 Atypical p-ANCA <1:20 titer Neg:<1:20 [facility] Comment on above: The atypical pANCA p attern has been observed in asignificant percentage of patients with ulcerative colitis,primary sclerosing cholangitis and autoimmune hepatitis. Automated lymphocyte count a s percentage of total leukocytesOrdered By: Ericka Carr on 05-27-2024 Lymphocytes/100 WBC Auto (Unsp spec) 36.4 % 19- [facility] BUN/creatinine ratioOrdered By: Ericka Carr on 05-27-2024 Urea nitrogen/Creatinine [Mass ratio] 17.8 mg/mg 10- [facility] Basophil percentageOrdered B y: Ericka Carr on 05-27-2024 Basophils/100 WBC (Bld) 0.5 % 0-1 [facility] Bilirubin, totalOrdered By: Ericka Carr on 05-27-2024 Bilirubin [Mass/Vol] 1.00 mg/dL 0.00-1.30 [facility] CBC W/Diff, Automatedon Absolute Lymph 2.67 X10 3/uL Normal 0.83-4.51 [facility] Comment on above: Performed By: #### L 501.9985, L803.2200, L800.1280, L500.4050, L3400.3800, L500.4100, L503.5510, L3300.1200, L3100.6900, L100.0100, L300.3900, L3000.0375, L3100.5440, L501.6710 #### [facility] [address] [facility] [place], [place], [id number] Absolute Neut 4.0 X10 3/uL Normal 2.0-7.7 [facility] Comment on above: Performed By: #### L 501.9985, L803.2200, L800.1280, L500.4050, L3400.3800, L500.4100, L503.5510, L3300.1200, L3100.6900, L100.0100, L300.3900, L3000.0375, L3100.5440, L501.6710 #### [facility] [address] [place], [address] Basophils/100 WBC (Bld) 0.5 % Normal 0-1 [facility] Comment on above: Performed By: #### L 501.9985, L803.2200, L800.1280, L500.4050, L3400.3800, L500.4100, L503.5510, L3300.1200, L3100.6900, L100.0100, L300.3900, L3000.0375, L3100.5440, L501.6710 #### [facility] [address] [facility] [place], [address] Eosinophils/100 WBC (Bld) 3.4 % Normal 0-5 [facility] Comment on above: Performed By: #### L 501.9985, L803.2200, L800.1280, L500.4050, L3400.3800, L500.4100, L503.5510, L3300.1200, L3100.6900, L100.0100, L300.3900, L3000.0375, L3100.5440, L501.6710 #### [facility] [address] [facility] [place], [place], [phone] (640) Erythrocyte distribution width (RBC) [Ratio] 13.5 % Normal 11.6-14.6 [facility] Comment on above: Performed By: #### L 501.9985, L803.2200, L800.1280, L500.4050, L3400.3800, L500.4100, L503.5510, L3300.1200, L3100.6900, L100.0100, L300.3900, L3000.0375, L3100.5440, L501.6710 #### [facility] [address] [place], [place], [phone] (699) Hematocrit (Bld) [Volume fraction] 43.2 % Normal 40-54 [facility] Comment on above: Performed By: #### L 501.9985, L803.2200, L800.1280, L500.4050, L3400.3800, L500.4100, L503.5510, L3300.1200, L3100.6900, L100.0100, L300.3900, L3000.0375, L3100.5440, L501.6710 #### [facility] [address] [place], [address] Hemoglobin (Bld) [Mass/Vol] 14.7 g/dL Normal 13.0-16. 5 [facility] Comment on above: Performed By: #### L 501.9985, L803.2200, L800.1280, L500.4050, L3400.3800, L500.4100, L503.5510, L3300.1200, L3100.6900, L100.0100, L300.3900, L3000.0375, L3100.5440, L501.6710 #### [facility] [address] [place], [address] IG% 0.400 Normal 0.0-0.9 [facility] Comment on above: Result Comment: IG% - Immature Granulocytes (promyelocytes, myelocytes and metamyelocytes) > 1% indicates that a LEFT SHIFT is Present. Performed By: #### L 501.9985, L803.2200, L800.1280, L500.4050, L3400.3800, L500.4100, L503.5510, L3300.1200, L3100.6900, L100.0100, L300.3900, L3000.0375, L3100.5440, L501.6710 #### [facility] [address] [place], [address] Lymphocytes/100 WBC (Bld) 36.4 % Normal 19-41 [facility] Comment on above: Performed By: #### L 501.9985, L803.2200, L800.1280, L500.4050, L3400.3800, L500.4100, L503.5510, L3300.1200, L3100.6900, L100.0100, L300.3900, L3000.0375, L3100.5440, L501.6710 #### [facility] [address] [place], [address] MCH (RBC) [Entitic mass] 30.1 pg Normal 27.0-32.0 [facility] Comment on above: Performed By: #### L 501.9985, L803.2200, L800.1280, L500.4050, L3400.3800, L500.4100, L503.5510, L3300.1200, L3100.6900, L100.0100, L300.3900, L3000.0375, L3100.5440, L501.6710 #### [facility] [address] [facility] [place], [address] MCHC (RBC) [Mass/Vol] 34.0 g/dL Normal 32-36 [facility] Comment on above: Performed By: #### L 501.9985, L803.2200, L800.1280, L500.4050, L3400.3800, L500.4100, L503.5510, L3300.1200, L3100.6900, L100.0100, L300.3900, L3000.0375, L3100.5440, L501.6710 #### [facility] [address] [place], [address] MCV (RBC) [Entitic vol] 88.5 fL Normal 80-94 [facility] Comment on above: Performed By: #### L 501.9985, L803.2200, L800.1280, L500.4050, L3400.3800, L500.4100, L503.5510, L3300.1200, L3100.6900, L100.0100, L300.3900, L3000.0375, L3100.5440, L501.6710 #### [facility] [address] [place], [address] (997) Monocytes/100 WBC (Bld) 5.2 % Normal 0-10 [facility] Comment on above: Performed By: #### L 501.9985, L803.2200, L800.1280, L500.4050, L3400.3800, L500.4100, L503.5510, L3300.1200, L3100.6900, L100.0100, L300.3900, L3000.0375, L3100.5440, L501.6710 #### [facility] [address] [place], [address] ([phone] Neutrophils/100 WBC (Bld) 54.1 % Normal 47-70 [facility] Comment on above: Performed By: #### L 501.9985, L803.2200, L800.1280, L500.4050, L3400.3800, L500.4100, L503.5510, L3300.1200, L3100.6900, L100.0100, L300.3900, L3000.0375, L3100.5440, L501.6710 #### [facility] [address] [place], [address] Nucleated RBC (Bld) [#/Vol] 0 10*3/uL Normal 0-5 [facility] Comment on above: Performed By: #### L 501.9985, L803.2200, L800.1280, L500.4050, L3400.3800, L500.4100, L503.5510, L3300.1200, L3100.6900, L100.0100, L300.3900, L3000.0375, L3100.5440, L501.6710 #### [facility] [address] [place], [address] Platelet mean volume (Bld) [Entitic vol] 12.8 fL High 6.2-12.0 [facility] Comment on above: Performed By: #### L 501.9985, L803.2200, L800.1280, L500.4050, L3400.3800, L500.4100, L503.5510, L3300.1200, L3100.6900, L100.0100, L300.3900, L3000.0375, L3100.5440, L501.6710 #### [facility] [address] [place], [place], [phone] (160) Platelets (Bld) [#/Vol] 151 10*3/uL Normal 150-450 [facility] Comment on above: Performed By: #### L 501.9985, L803.2200, L800.1280, L500.4050, L3400.3800, L500.4100, L503.5510, L3300.1200, L3100.6900, L100.0100, L300.3900, L3000.0375, L3100.5440, L501.6710 #### [facility] [address] [place], [address] (663) RBC (Bld) [#/Vol] 4.88 10*6/uL Normal 4.6-6.2 [facility] Comment on above: Performed By: #### L 501.9985, L803.2200, L800.1280, L500.4050, L3400.3800, L500.4100, L503.5510, L3300.1200, L3100.6900, L100.0100, L300.3900, L3000.0375, L3100.5440, L501.6710 #### [facility] [address] [place], [address] RDW SD 43.7 fl Normal 35.1-43.9 [facility] Comment on above: Performed By: #### L 501.9985, L803.2200, L800.1280, L500.4050, L3400.3800, L500.4100, L503.5510, L3300.1200, L3100.6900, L100.0100, L300.3900, L3000.0375, L3100.5440, L501.6710 #### [facility] [address] [facility] [place], [place], [phone] WBC (Bld) [#/Vol] 7.3 10*3/uL Normal 4.4-11.0 [facility] Comment on above: Performed By: #### L 501.9985, L803.2200, L800.1280, L500.4050, L3400.3800, L500.4100, L503.5510, L3300.1200, L3100.6900, L100.0100, L300.3900, L3000.0375, L3100.5440, L501.6710 #### [facility] [address] [facility] [place], [place], [id number] CRPon 05-27-2024 C-REACTIVE PROT 7.41 mg/L High 0.0-3.0 [facility] Comment on above: Performed By: #### L 501.9985, L803.2200, L800.1280, L500.4050, L3400.3800, L500.4100, L503.5510, L3300.1200, L3100.6900, L100.0100, L300.3900, L3000.0375, L3100.5440, L501.6710 ####[facility] [address] [facility] [place], [place], [id number] CRP [Mass/Vol]Ordered By: Chapo Carr on 05-27-2024 C-Reactive Protein Extended Range 7.41 mg/L High 0.0-3.0 [facility] Calculated very low density lipoprotein (VLDL) cholesterol measurementOrdered By: Ericka Carr on 05-27-2024 Calculated very low density lipoprotein (VLDL) cholesterol measurement 86 mg/dL High 5-40 [facility] VLDL Cholesterol 86 mg/dL High 5-40 [facility] Carbon dioxide, total [Moles /volume] in Central venous bloodOrdered By: Ericka Carr on 05-27-2024 CO2 [Moles/Vol] 25.3 mmol/L 21.0-32.0 [facility] Centromere B antibody assayO rdered By: Ericka Carr on 05-27-2024 Centromere B Antibody <0.2 AI 0.0-0.9 [facility] Comment on above: Previous reported re sult: TNP AIEdited by: NESHA on 05/28/24:1508 AMENDED REPORT 05/28/24 1508 ANTI-CENT B previously reported as: Test not performed Chloride assayOrdered By: Chapo Carr on 05-27-2024 Chloride [Moles/Vol] 100 mmol/L 98-108 [facility] Chromatin antibody assayOrde red By: Ericka Carr on 05-27-2024 Antichromatin Antibodies <0.2 AI 0.0-0.9 [facility] Comment on above: Previous reported re sult: TNP AIEdited by: NESHA on 05/28/24:1508 AMENDED REPORT 05/28/24 1508 ANTICHROMATIN previously reported as: Test not performed Comprehensive Metabolic Prof ilon 05-27-2024 Albumin [Mass/Vol] 4.7 g/dL Normal 3.5-5.0 [facility] Comment on above: Performed By: #### L 501.9985, L803.2200, L800.1280, L500.4050, L3400.3800, L500.4100, L503.5510, L3300.1200, L3100.6900, L100.0100, L300.3900, L3000.0375, L3100.5440, L501.6710 #### [facility] [place], [address] Albumin/Globulin [Mass ratio] 1.2 {ratio} Normal 0.9-2.4 [facility] Comment on above: Performed By: #### L 501.9985, L803.2200, L800.1280, L500.4050, L3400.3800, L500.4100, L503.5510, L3300.1200, L3100.6900, L100.0100, L300.3900, L3000.0375, L3100.5440, L501.6710 #### [facility] [address] [place], [place], [id number] ALK PHOS 115 U/L Normal 40-129 [facility] Comment on above: Performed By: #### L 501.9985, L803.2200, L800.1280, L500.4050, L3400.3800, L500.4100, L503.5510, L3300.1200, L3100.6900, L100.0100, L300.3900, L3000.0375, L3100.5440, L501.6710 #### [facility] [address] [facility] [place], [address] ALT [Catalytic activity/Vol] 13 U/L Normal <=46 [facility] Comment on above: Performed By: #### L 501.9985, L803.2200, L800.1280, L500.4050, L3400.3800, L500.4100, L503.5510, L3300.1200, L3100.6900, L100.0100, L300.3900, L3000.0375, L3100.5440, L501.6710 #### [facility] [address] [place], [place], [id number] AST [Catalytic activity/Vol] 19 U/L Normal <=37 [facility] Comment on above: Performed By: #### L 501.9985, L803.2200, L800.1280, L500.4050, L3400.3800, L500.4100, L503.5510, L3300.1200, L3100.6900, L100.0100, L300.3900, L3000.0375, L3100.5440, L501.6710 #### [facility] [address] [facility] [place], [address] Bilirubin [Mass/Vol] 1.00 mg/dL Normal 0.00-1.30 [facility] Comment on above: Performed By: #### L 501.9985, L803.2200, L800.1280, L500.4050, L3400.3800, L500.4100, L503.5510, L3300.1200, L3100.6900, L100.0100, L300.3900, L3000.0375, L3100.5440, L501.6710 #### [facility] [address] [place], [place], [phone] (619) BUN/CRE 17.8 RATIO Normal 10-20 [facility] Comment on above: Performed By: #### L 501.9985, L803.2200, L800.1280, L500.4050, L3400.3800, L500.4100, L503.5510, L3300.1200, L3100.6900, L100.0100, L300.3900, L3000.0375, L3100.5440, L501.6710 #### [facility] [address] [place], [place], [phone] (324) Calcium [Mass/Vol] 7.6 mg/dL Normal 7.6-11.0 [facility] Comment on above: Performed By: #### L 501.9985, L803.2200, L800.1280, L500.4050, L3400.3800, L500.4100, L503.5510, L3300.1200, L3100.6900, L100.0100, L300.3900, L3000.0375, L3100.5440, L501.6710 #### [facility] [address] [place], [address] Chloride [Moles/Vol] 100 mmol/L Normal 98-108 [facility] Comment on above: Performed By: #### L 501.9985, L803.2200, L800.1280, L500.4050, L3400.3800, L500.4100, L503.5510, L3300.1200, L3100.6900, L100.0100, L300.3900, L3000.0375, L3100.5440, L501.6710 #### [facility] [address] [place], [place], [id number] CO2 [Moles/Vol] 25.3 mmol/L Normal 21.0-32.0 [facility] Comment on above: Performed By: #### L 501.9985, L803.2200, L800.1280, L500.4050, L3400.3800, L500.4100, L503.5510, L3300.1200, L3100.6900, L100.0100, L300.3900, L3000.0375, L3100.5440, L501.6710 #### [facility] [address] [facility] [place], [place], [id number] Creatinine [Mass/Vol] 0.87 mg/dL Normal 0.70-1.20 [facility] Comment on above: Performed By: #### L 501.9985, L803.2200, L800.1280, L500.4050, L3400.3800, L500.4100, L503.5510, L3300.1200, L3100.6900, L100.0100, L300.3900, L3000.0375, L3100.5440, L501.6710 #### [facility] [address] [place], [place], [id number] GAP 13 Normal 5-15 [facility] Comment on above: Performed By: #### L 501.9985, L803.2200, L800.1280, L500.4050, L3400.3800, L500.4100, L503.5510, L3300.1200, L3100.6900, L100.0100, L300.3900, L3000.0375, L3100.5440, L501.6710 #### [facility] [address] [place], [place], [id number] GFR/1.73 sq M.predicted among non-blacks MDRD (S/P/Bld) [Vol rate/Area] 107 mL/min/{1.73_m2} Normal >60 [facility] Comment on above: Result Comment: mL/m in/1.73m2 CKD-EPI Creatinine Equation (2020) Performed By: #### L 501.9985, L803.2200, L800.1280, L500.4050, L3400.3800, L500.4100, L503.5510, L3300.1200, L3100.6900, L100.0100, L300.3900, L3000.0375, L3100.5440, L501.6710 #### [facility] [address] [place], [address] Globulin (S) [Mass/Vol] 3.9 g/dL Normal 2.2-4.2 [facility] Comment on above: Performed By: #### L 501.9985, L803.2200, L800.1280, L500.4050, L3400.3800, L500.4100, L503.5510, L3300.1200, L3100.6900, L100.0100, L300.3900, L3000.0375, L3100.5440, L501.6710 #### [facility] [address] [facility] [place], [place], [id number] Glucose [Mass/Vol] 110 mg/dL High 70-99 [facility] Comment on above: Performed By: #### L 501.9985, L803.2200, L800.1280, L500.4050, L3400.3800, L500.4100, L503.5510, L3300.1200, L3100.6900, L100.0100, L300.3900, L3000.0375, L3100.5440, L501.6710 #### [facility] [address] [place], [address] Potassium [Moles/Vol] 4.2 mmol/L Normal 3.3-5.1 [facility] Comment on above: Performed By: #### L 501.9985, L803.2200, L800.1280, L500.4050, L3400.3800, L500.4100, L503.5510, L3300.1200, L3100.6900, L100.0100, L300.3900, L3000.0375, L3100.5440, L501.6710 #### [facility] [address] [place], [address] Sodium [Moles/Vol] 138 mmol/L Normal 133-145 [facility] Comment on above: Performed By: #### L 501.9985, L803.2200, L800.1280, L500.4050, L3400.3800, L500.4100, L503.5510, L3300.1200, L3100.6900, L100.0100, L300.3900, L3000.0375, L3100.5440, L501.6710 #### [facility] [address] [place], [place], [phone] (504) T PROT 8.6 g/dL High 5.9-8.4 [facility] Comment on above: Performed By: #### L 501.9985, L803.2200, L800.1280, L500.4050, L3400.3800, L500.4100, L503.5510, L3300.1200, L3100.6900, L100.0100, L300.3900, L3000.0375, L3100.5440, L501.6710 #### [facility] [address] [place], [address] Urea nitrogen [Mass/Vol] 16 mg/dL Normal 4-19 [facility] Comment on above: Performed By: #### L 501.9985, L803.2200, L800.1280, L500.4050, L3400.3800, L500.4100, L503.5510, L3300.1200, L3100.6900, L100.0100, L300.3900, L3000.0375, L3100.5440, L501.6710 #### [facility] [address] [place], [address] DNA double strand Ab Qn (S)O rdered By: Ericka Carr on 05-27-2024 Anti-Double Strand DNA Antibody <1 IU/mL 0-9 [facility] Comment on above: Negative <5 Equivoca l 5 - 9 Positive >9Previous reported result: TNP IU/mLEdited by: NESHA on 05/28/24:1508 AMENDED REPORT 05/28/241507 dsDNA AB previously reported as: Test not performed Eosinophil percentageOrdered By: Ericka Carr on 05-27-2024 Eosinophils/100 WBC (Bld) 3.4 % 0-5 [facility] Erythrocyte distribution wid th (RBC) [Ratio]Ordered By: Ericka Carr on 05-27-2024 Erythrocyte distribution width (RBC) [Entitic vol] 43.7 fL 35.1-43.9 [facility] Erythrocyte distribution wid th ratioOrdered By: Ericka Carr on 05-27-2024 Erythrocyte distribution width (RBC) [Ratio] 13.5 % 11.6-14.6 [facility] Erythrocyte distribution wid th standard deviationOrdered By: Ericka Carr on 05-27-2024 Erythrocyte distribution width (RBC) [Ratio] 43.7 fl 35.1-43.9 [facility] GFR/1.73 sq M.predicted kevin g non-blacks MDRD (S/P/Bld) [Vol rate/Area]Ordered By: Ericka Carr on 05-27-2024 Estimated GFR (MDRD) Non-Af Amer 107 >60 [facility] Comment on above: mL/min/1.73m2 CKD-EP I Creatinine Equation (2020) Gastroenterology Visit Repor ton 05-27-2024 Gastroenterology Visit Report [facility] [address] [place] [address] OFFICE VISIT Date of Service: 05/27/24 MR#: [id number] Acct: [id number] Name: DIMITRI MCCOY Rep #: [id number] : 1975 Provider: HEATHER rosario Age/Sex: 49/M Location: [facility] Status: Signed Intake Vital Signs 02/08/24 06:53 Height 5 ft 8 in Intake Visit Reasons: ABD PAIN Chief Complaint: Nausea/Vomiting/Abdom inalPain/SILVER Health Technician Required: Yes Allergies No Known Allergies Allergy (Verified 05/27/24 10:33) Medications ???Medication ???Instructions ???Recorded ???Confirmed ???Type naproxen 500 mg tablet 500 mg PO BID PRN #20 tabs 9 05/27/24 Rx hydrocodone-acetamino phen 5-325mg 1 tab PO Q4H PRN PRN Pain 2 days 02/08/24 05/27/24 Rx 5mg-325mg #10 TABLETS dicyclomine 10 mg capsule 10 mg PO BID PRN abdominal pain 05/27/24 Rx #60 caps pantoprazole 40 mg tablet,delayed 40 mg PO DAILY #60 tabs 05/27/24 05/27/24 Rx release PFSH Medical History No pertinent past medical history Social History Smoking Status: Never smoker HPI HPI Chief Complaint: Nausea/Vomiting/Abdom inalPain/SILVER Details: DIMITRI CRISOSTOMO, is a 49 M who presents to the office today for establishment with [facility] for complaints of RUQ abdominal pain. He presents with his son to assist with translation as he does not understand, nor speak [place]. 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 He denies chemical exposure at his work or at home. He describes RUQ abdominal pain as sharp pinching and unrelated to food intake at all. He reports occasional heartburn unrelated to food types as well. He states his repetitive hanging movement at work increases amount of pain. ER visit in 02/12 had an abdominal CT w/IV contrast that showed mesenteric adenopathy and fatty liver. He denies difficulty chewing and swallowing, cough, throat clearing, sinus drainage, reflux, nausea, vomiting, excessive gas, bloating, constipation, diarrhea, hematochezia, and melena. He reports that his pain will some times reduce his appetite. He denies fever, chills, and exposure to ill persons. ROS Const Constitutional: No chills, fatigue, fever(s) or weight change Eyes Eyes: No blurry vision or change in vision ENT ENT: No abnormal hearing or difficulty swallowing Resp Respiratory: No cough Cardio Cardiology: No chest pain at rest, chest pain with exertion or leg pain with exertion Gastro GI: Positive for abdominal pain and heartburn; No belching, bloating, change in bowel habits, change in stool character, coffee ground emesis, constipation, cramping, diarrhea, difficulty swallowing, feeling full early, excessive flatus, incontinent of stools, Vomiting blood/hematemesis, Blood in stool, loose stools, Black,tarry stools, nausea/dyspepsia, pain with swallowing, vomiting or other Genitourinary Male: No difficulty urinating Musc Musculoskeletal: Positive for muscle cramps; No abnormal gait, joint pain or leg pain with exertion Skin Skin: No yellowing of the eye or itchy eyes Neuro Neurology: No abnormal gait or abnormal hearing Psych Psychiatric: No anxiety and No depression Endo Endocrine: No cold intolerance, fatigue, heat intolerance or weight change Aller/Imm Allergy/Immunologic: No food intolerance or itchy eyes Edward/Lymp Hematologic/Lymphatic : No easy bleeding or easy bruising Exam Const General: cooperative, healthy appearing, comfortable and no acute distress Nutritional Appearance: average body habitus Orientation: alert and oriented x3 [facility] Head: normal to inspection Ears: hearing grossly normal bilaterally Nose: external nose normal Face and sinus: normal facial exam and face symmetric Eyes General: appearance normal, both eyes and all related structures Sclera: sclerae normal Neck Neck: normal visual inspection and full ROM Chest Chest palpation inspection: normal inspection of the chest Resp Effort Inspection: normal respiratory effort, able to speak in complete sentences and symmetric chest movement GI Inspection: normal to inspection Auscultation: normal bowel sounds Palpation: hernia umbilical (small reducible) and tender in the RUQ Skin General: no rashes or lesions noted Neuro General: patient alert, patient oriented x3 and moves all extremities Cognition: normal cognition Speech: speech normal Gait: normal gait Extrem General: full ROM Psych Appearance: grossly normal Mental Status: mental status grossly normal Mood: congruent mood Affect: normal affect Speech and Movement: speech and movement normal 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 Normal [facility] Glomerular filtration rate ( GFR) estimation/1.73 sq m using serum, plasma, or whole bOrdered By: Ericka Crar on 05-27-2024 GFR/1.73 sq M.predicted among non-blacks MDRD (S/P/Bld) [Vol rate/Area] 107 mL/min/{1.73_m2} >60 [facility] Comment on above: mL/min/1.73m2 CKD-EP I Creatinine Equation (2020) HBV surface Ag IA QlOrdered By: Ericka Carr on 05-27-2024 Hepatitis B Surface Antigen Negative Negative [facility] Hematocrit Auto (Bld) [Volum e fraction]Ordered By: Ericka Carr on 05-27-2024 Hematocrit (Bld) [Volume fraction] 43.2 % 40-54 [facility] Hemoglobin A1con 05-27-2024 HbA1c (Bld) [Mass fraction] 6.3 % Normal <=5.6 [facility] Comment on above: Performed By: #### L 501.9985, L803.2200, L800.1280, L500.4050, L3400.3800, L500.4100, L503.5510, L3300.1200, L3100.6900, L100.0100, L300.3900, L3000.0375, L3100.5440, L501.6710 ####[facility] [address] [place], [place], [phone] Hemoglobin A1c percentageOrd ered By: Ericka Carr on 05-27-2024 HbA1c (Bld) [Mass fraction] 6.3 % >5.7 [facility] Hemoglobin measurementOrdere d By: Ericka Carr on 05-27-2024 Hemoglobin (Bld) [Mass/Vol] 14.7 g/dL 13.0-16. 5 [facility] Hepatitis A virus IgM antibo dy assayOrdered By: Ericka Carr on 05-27-2024 Hepatitis A IgM Antibody Negative Negative [facility] Comment on above: A negative anti-HAV IgM result suggests no recent orcurrent HAV infection. Hepatitis B virus core IgM a ntibody assayOrdered By: Ericka Carr on 05-27-2024 Hepatitis B Core IgM Antibody Negative Negative [facility] Hepatitis C virus antibody a ssayOrdered By: Ericka Carr on 05-27-2024 Hepatitis C Antibody (EIA) Non-Reactive N on Reactive [facility] Immature granulocytes/100 WB C Auto (Bld)Ordered By: Ericka aCrr on 05-27-2024 Immature granulocytes/100 WBC (Bld) 0.400 % 0.0-0.9 [facility] Comment on above: IG% - Immature Granu locytes (promyelocytes, myelocytes and metamyelocytes) > 1% indicates that a LEFT SHIFT is Present. International normalized rat io (INR) calculationOrdered By: Ericka Carr on 05-27-2024 INR Coag (Bld) [Relative time] 0.8 {INR} [facility] Guadalupe-1 antibody assayOrdered B y: Ericka Carr on 05-27-2024 GUADALUPE-1 Antibody <0.2 AI 0.0-0.9 [facility] Comment on above: Previous reported re sult: TNP AIEdited by: NESHA on 05/28/24:1508 AMENDED REPORT 05/28/24 1508 ANTI-GUADALUPE previously reported as: Test not performed LDL calc ser/plasOrdered By: Ericka Carr on 05-27-2024 Cholesterol in LDL [Mass/Vol] 99 mg/dL [facility] Comment on above: Hxxmdxspby=349-636 m g/dL & Higher Kpic=460 mg/dL or greater LDL Cholesterol, Calculated 99 mg/dL [facility] Comment on above: Smoqnipykc=522-744 m g/dL & Higher Dbta=317 mg/dL or greater Laboratory - Chemistry and C hemistry - challengeOrdered By: Ericka Carr on 05-27-2024 AST [Catalytic activity/Vol] 19 U/L <38 [facility] Lipid Profileon 05-27-2024 CHOL:HDL 5.53 Normal [facility] Comment on above: Performed By: #### L 501.9985, L803.2200, L800.1280, L500.4050, L3400.3800, L500.4100, L503.5510, L3300.1200, L3100.6900, L100.0100, L300.3900, L3000.0375, L3100.5440, L501.6710 ####[facility] [address] [place], [place], [phone] Cholesterol [Mass/Vol] 226 mg/dL High <=200 [facility] Comment on above: Result Comment: Chol esterol level, Desirable <200 mg/dL Borderline high cholesterol 200-239 mg/dL High cholesterol >=240 mg/dL Recommendations of the NCEP Adult Treatment Panel for the following risk-cutoff thresholds for the [place] population. Performed By: #### L 501.9985, L803.2200, L800.1280, L500.4050, L3400.3800, L500.4100, L503.5510, L3300.1200, L3100.6900, L100.0100, L300.3900, L3000.0375, L3100.5440, L501.6710 ####[facility] [address] [facility]. [place], [place], [phone] Cholesterol in HDL [Mass/Vol] 41 mg/dL Normal [facility] Comment on above: Result Comment: Leslee onal Cholesterol Education Program (NCEP) guidelines: <40 mg/dL: Low HDL-cholesterol (major risk factor for CHD) >= 60 mg/dL: High HDL-cholesterol (negative risk factor for CHD) HDL-cholesterol is affected by a number of factors, e.g. smoking, exercise, hormones, sex and age. Performed By: #### L 501.9985, L803.2200, L800.1280, L500.4050, L3400.3800, L500.4100, L503.5510, L3300.1200, L3100.6900, L100.0100, L300.3900, L3000.0375, L3100.5440, L501.6710 ####[facility] [address] [place], [place], [phone]) Cholesterol in LDL [Mass/Vol] 99 mg/dL Normal [facility] Comment on above: Result Comment: Bord vsjqmo=735-181 mg/dL Higher Cadt=550 mg/dL or greater Performed By: #### L 501.9985, L803.2200, L800.1280, L500.4050, L3400.3800, L500.4100, L503.5510, L3300.1200, L3100.6900, L100.0100, L300.3900, L3000.0375, L3100.5440, L501.6710 ####[facility] [address] [place], [place], [phone] Cholesterol in VLDL [Mass/Vol] 86 mg/dL High 5-40 [facility] Comment on above: Performed By: #### L 501.9985, L803.2200, L800.1280, L500.4050, L3400.3800, L500.4100, L503.5510, L3300.1200, L3100.6900, L100.0100, L300.3900, L3000.0375, L3100.5440, L501.6710 ####[facility] [address] [facility] [address]. [place], [place], [phone] Triglyceride [Mass/Vol] 432 mg/dL High [facility] Comment on above: Result Comment: The drugs N-Acetylcysteine and Metamizole may falsely depress this assay. Normal range: <150 mg/dL Borderline High: 150-199 mg/dL High: 200-499 mg/dL Very High: >500 mg/dL Performed By: #### L 501.9985, L803.2200, L800.1280, L500.4050, L3400.3800, L500.4100, L503.5510, L3300.1200, L3100.6900, L100.0100, L300.3900, L3000.0375, L3100.5440, L501.6710 ####[facility] [address] [place], [place], [phone] Lymphocytes Auto (Unsp spec) [#/Vol]Ordered By: Ericka Carr on 05-27-2024 Lymphocytes (Bld) [#/Vol] 2.67 10*3/uL 0.83-4.5 1 [facility] Lymphocytes/100 WBC Auto (Un sp spec)Ordered By: Ericka Carr on 05-27-2024 Lymphocytes/100 WBC (Bld) 36.4 % 19-41 [facility] MCV (mean corpuscular volume ) determinationOrdered By: Ericka Carr on 05-27-2024 MCV (RBC) [Entitic vol] 88.5 fL 80-94 [facility] Mean corpuscular hemoglobin (MCH) determinationOrdered By: Erickaher Carr on 05-27-2024 MCH (RBC) [Entitic mass] 30.1 pg 27.0-32.0 [facility] Mean corpuscular hemoglobin concentration (MCHC) determinationOrdered By: Erickaher Carr on 05-27-2024 MCHC (RBC) [Mass/Vol] 34.0 g/dL 32-36 [facility] Mean platelet volume determi nationOrdered By: Ericka Carr on 05-27-2024 Platelet mean volume (Bld) [Entitic vol] 12.8 fL High 6.2-12.0 [facility] Mitochondria Ab Ql (S)Ordere d By: Ericka Carr on 05-27-2024 Anti-Mitochondrial Antibody <20.0 Units 0.0-20. 0 [facility] Comment on above: Negative 0.0 - 20.0 Equivocal 20.1 - 24.9 Positive >24.9Mitochondrial (M2) Antibodies are found in 90-96% ofpatients with primary biliary cirrhosis.Performed at: [facility] [id number] Director: Danny Gandara PhD, Phone: [phone] Monocyte percentageOrdered B y: Ericka Carr on 05-27-2024 Monocytes/100 WBC (Bld) 5.2 % 0-10 [facility] Neutrophil cytoplasmic Ab.cl assic Qn (S)Ordered By: Ericka Carr on 05-27-2024 Cytoplasmic ANCA (c-ANCA) Antibody <1:20 titer Neg:<1:20 [facility] Neutrophil cytoplasmic Ab.pe rinuclear IF (S) [Titer]Ordered By: Ericka Carr on 05-27-2024 Perinuclear ANCA (p-ANCA) Antibody <1:20 titer Neg:<1:20 [facility] Comment on above: The presence of posi tive fluorescence exhibiting P-ANCA orC-ANCA patterns alone is not specific for the diagnosis ofWegener's Granulomatosis (WG) or microscopic polyangiitis.Decisions about treatment should not be based solely onANCA IFA results. The International ANCA Group Consensusrecommends follow up testing of positive sera with both TX-3 and MPO-ANCA enzyme immunoassays. As many as 5% serumsamples are positive only by EIA. Ref. AM J Clin Hybwnb3435;111:507-513. Neutrophil percentageOrdered By: Ericka Carr on 05-27-2024 Neutrophils/100 WBC (Bld) 54.1 % 47-70 [facility] No Panel InformationOrdered By: Ericka Carr on 05-27-2024 Hepatitis C Antibody Comment Comment . [facility] Comment on above: Not infected with HC V unless early or acute infection issuspected (which may be delayed in an immunocompromisedindividual), or other evidence exists to indicate HCVinfection. Nucleated red blood cell per centageOrdered By: Ericka Carr on 05-27-2024 Nucleated RBC/100 WBC (Bld) [Ratio] 0 % 0-5 [facility] Platelet countOrdered By: Chapo Carr on 05-27-2024 Platelets (Bld) [#/Vol] 151 10*3/uL 150-450 [facility] Potassium (Unsp spec) [Mass/ Vol]Ordered By: Ericka Carr on 05-27-2024 Potassium [Moles/Vol] 4.2 mmol/L 3.3-5.1 [facility] Potassium measurement (mass/ volume)Ordered By: Ericka Carr on 05-27-2024 Potassium (Unsp spec) [Mass/Vol] 4.2 mmol/L 3.3-5.1 [facility] Prothrombin Time w/INRon INR Coag (PPP) [Relative time] 0.8 {INR} Normal [facility] Comment on above: Performed By: #### L 501.9985, L803.2200, L800.1280, L500.4050, L3400.3800, L500.4100, L503.5510, L3300.1200, L3100.6900, L100.0100, L300.3900, L3000.0375, L3100.5440, L501.6710 ####[facility] [address] [place], [place], [phone] PT Coag (PPP) [Time] 11.2 s Low 11.7-14.9 [facility] Comment on above: Performed By: #### L 501.9985, L803.2200, L800.1280, L500.4050, L3400.3800, L500.4100, L503.5510, L3300.1200, L3100.6900, L100.0100, L300.3900, L3000.0375, L3100.5440, L501.6710 ####[facility] [address] [place], [place], [phone] Prothrombin timeOrdered By: Ericka Carr on 05-27-2024 PT Coag (PPP) [Time] 11.2 s Low 11.7-14.9 [facility] RBC Auto (Bld) [#/Vol]Ordere d By: Ericka Carr on 05-27-2024 RBC (Bld) [#/Vol] 4.88 10*6/uL 4.6-6.2 [facility] TRASH TRUCK DRIVER abOrdered By: Ericka rosario on 05-27-2024 TRASH TRUCK DRIVER Antibody <0.2 AI 0.0-0.9 [facility] Comment on above: Previous reported re sult: TNP AIEdited by: NESHA on 05/28/24:1508 AMENDED REPORT 05/28/24 150 TRASH TRUCK DRIVER Ab previously reported as: Test not performed SCL-70 extractable nuclear A b Qn (S)Ordered By: Ericka Carr on 05-27-2024 Scl-70 (Scleroderma) Antibody <0.2 AI 0.0-0.9 [facility] Comment on above: Previous reported re sult: TNP AIEdited by: NESHA on 05/28/24:1508 AMENDED REPORT 05/28/24 1508 ANTISCLER previously reported as: Test not performed SS-A IgG antibody assayOrder ed By: Ericka Carr on 05-27-2024 SS-A/Ro IgG Antibody < 0.2 AI 0.0-0.9 [facility] Comment on above: Previous reported re sult: TNP AIEdited by: NESHA on 05/28/24:1508 AMENDED REPORT 05/28/24 150 Anti-SS-A previously reported as: Test not performed SS-B IgG antibody assayOrder ed By: Ericka Carr on 05-27-2024 SS-B/La IgG Antibody < 0.2 AI 0.0-0.9 [facility] Comment on above: Previous reported re sult: TNP AIEdited by: NESHA on 05/28/24:1508 AMENDED REPORT 05/28/24 150 Anti-SS-B previously reported as: Test not performed Screening total cholesterol/ high density lipoprotein (HDL) cholesterol ratioOrdered By: Ericka Carr on 05-27-2024 Cholesterol.total/Cholester ol in HDL [Mass ratio] 5.53 {ratio} [facility] Serum DNA double strand anti body assay (units/volume)Ordered By: Ericka Carr on 05-27-2024 DNA double strand Ab Qn (S) [IU]/mL 0-9 [facility] Comment on above: Negative <5 Equivoca l 5 - 9 Positive >9Previous reported result: TNP IU/mLEdited by: NESHA on 05/28/24:1508 AMENDED REPORT 05/28/24 1508 dsDNA AB previously reported as: Test not performed Serum Scl-70 antibody assay (units/volume)Ordered By: Ericka Carr on 05-27-2024 SCL-70 extractable nuclear Ab Qn (S) <0.2 AI 0.0-0.9 [facility] Comment on above: Previous reported re sult: TNP AIEdited by: NESHA on 05/28/24:1508 AMENDED REPORT 05/28/24 1508 ANTISCLER previously reported as: Test not performed Serum classic neutrophil cyt oplasmic antibody assay (units/volume)Ordered By: Ericka Carr on 05-27-2024 Neutrophil cytoplasmic Ab.classic Qn (S) <1:20 titer Neg:<1:20 [facility] Serum creatinine measurement (mass/volume)Ordered By: Ericka Carr on 05-27-2024 Creatinine [Mass/Vol] 0.87 mg/dL 0.70-1.20 [facility] Serum globulin measurementOr dered By: Ericka Carr on 05-27-2024 Globulin (S) [Mass/Vol] 3.9 g/dL 2.2-4.2 [facility] Serum glucose measurement (m ass/volume)Ordered By: Ericka Carr on 05-27-2024 Glucose [Mass/Vol] 110 mg/dL High 70-99 [facility] Serum mitochondria antibody detectionOrdered By: Ericka Carr on 05-27-2024 Mitochondria Ab Ql (S) <20.0 Units 0.0-20.0 [facility] Comment on above: Negative 0.0 - 20.0 Equivocal 20.1 - 24.9 Positive >24.9Mitochondrial (M2) Antibodies are found in 90-96% ofpatients with primary biliary cirrhosis.Performed at: [facility] [id number] Director: Danny Gandara PhD, Phone: [phone] Serum or plasma C reactive p rotein measurement (mass/volume)Ordered By: Ericka Carr on 05-27-2024 CRP [Mass/Vol] 7.41 mg/L High 0.0-3.0 [facility] Serum or plasma actin IgG an tibody assay (units/volume)Ordered By: Ericka Carr on 05-27-2024 Actin IgG Qn 13 Units 0-19 [facility] Comment on above: Negative 0 - 19 Weak positive 20 - 30 Moderate to strong positive >30 Actin Antibodies are found in 52-85% of patients with autoimmune hepatitis or chronic active hepatitis and in 22% of patients with primary biliary cirrhosis. Serum or plasma alanine ghosh otransferase (ALT) measurementOrdered By: Ericka Carr on 05-27-2024 ALT [Catalytic activity/Vol] 13 U/L <47 [facility] Serum or plasma albumin anders urement (mass/volume)Ordered By: Ericka Carr on 05-27-2024 Albumin [Mass/Vol] 4.7 g/dL 3.5-5.0 [facility] Serum or plasma albumin/glob ulin mass ratioOrdered By: Ericka Carr on 05-27-2024 Albumin/Globulin [Mass ratio] 1.2 {ratio} 0.9-2.4 [facility] Serum or plasma alkaline brandi sphatase measurementOrdered By: Ericka Carr on 05-27-2024 ALP [Catalytic activity/Vol] 115 U/L 40-129 [facility] Serum or plasma angiotensin converting enzyme measurement (enzymatic activity/volume)Ordered By: Ericka Carr on 05-27-2024 Angiotensin converting enzyme [Catalytic activity/Vol] 49 U/L 14-82 [facility] Serum or plasma calcium anders urement (mass/volume)Ordered By: Ericka Carr 05-27-2024 Calcium [Mass/Vol] 7.6 mg/dL 7.6-11.0 [facility] Serum or plasma cholesterol in HDL measurement (mass/volume)Ordered By: Ericka Carr on 05-27-2024 Cholesterol in HDL [Mass/Vol] 41 mg/dL >40 [facility] Comment on above: National Cholesterol Education Program (NCEP) guidelines:<40 mg/dL: Low HDL-cholesterol (major risk factor for CHD)>= 60 mg/dL: High HDL-cholesterol (negative risk factor for CHD)HDL-cholesterol is affected by a number of factors, e.g. smoking, exercise, hormones, sex and age. Serum or plasma cholesterol measurement (mass/volume)Ordered By: Ericka Carr on 05-27-2024 Cholesterol [Mass/Vol] 226 mg/dL High <201 [facility] Comment on above: Cholesterol level, D esirable <200 mg/dLBorderline high cholesterol 200-239 mg/dLHigh cholesterol >=240 mg/dLRecommendations of the NCEP Adult Treatment Panel for the following risk-cutoff thresholds for the [place] population. Serum or plasma hepatitis B virus surface antigen detection by immunoassayOrdered By: Ericka Carr on 05-27-2024 HBV surface Ag IA Ql Negative Negative [facility] Serum or plasma urea nitroge n measurement (mass/volume)Ordered By: Ericka Carr on 05-27-2024 Urea nitrogen [Mass/Vol] 16 mg/dL 4-19 [facility] Serum perinuclear neutrophil cytoplasmic antibody titer by immunofluorescenceOrdered By: Ericka Carr on 05-27-2024 Neutrophil cytoplasmic Ab.perinuclear IF (S) [Titer] <1:20 titer Neg:<1:20 [facility] Comment on above: The presence of posi tive fluorescence exhibiting P-ANCA orC-ANCA patterns alone is not specific for the diagnosis ofWegener's Granulomatosis (WG) or microscopic polyangiitis.Decisions about treatment should not be based solely onANCA IFA results. The International ANCA Group Consensusrecommends follow up testing of positive sera with both TX-3 and MPO-ANCA enzyme immunoassays. As many as 5% serumsamples are positive only by EIA. Ref. AM J Clin [id number];111:507-513. [place] antibody assayOrdered By: Ericka Carr on 05-27-2024 SM Antibody <0.2 AI 0.0-0.9 [facility] Comment on above: Previous reported re sult: TNP AIEdited by: NESHA on 05/28/24:1508 AMENDED REPORT 05/28/24 1508 BOWDEN Ab previously reported as: Test not performed Sodium levelOrdered By: Catalina Carr on 05-27-2024 Sodium [Moles/Vol] 138 mmol/L 133-145 [facility] Total proteinOrdered By: Levy Carr on 05-27-2024 Protein [Mass/Vol] 8.6 g/dL High 5.9-8.4 [facility] TransferrinOrdered By: Mak Carr on 05-27-2024 Transferrin [Mass/Vol] 267 mg/dL 177-329 [facility] Comment on above: Performed at: [address] [id number] Director: Danny Gandara PhD, Phone: [phone] Triglycerides measurementOrd ered By: Ericka Carr on 05-27-2024 Triglyceride [Mass/Vol] 432 mg/dL High <199 [facility] Comment on above: The drugs N-Acetylcy steine and Metamizole may falsely depress this assay. Normal range: <150 mg/dLBorderline High: 150-199 mg/dLHigh: 200-499 mg/dLVery High: >500 mg/dL Venous blood ammonia measure mentOrdered By: Ericka Carr on 05-27-2024 Ammonia (P) [Moles/Vol] 12.6 umol/L Low 16-60 [facility] White blood cell (WBC) count Ordered By: Ericka Carr on 05-27-2024 WBC (Bld) [#/Vol] 7.3 10*3/uL 4.4-11.0 [facility] CNOVon 04-18-2024 CNOV Office Visit (AISHA) DIMITRI CLAERO ([id number]) 1975 M SERGEY Date Time Provider Department 04/18/24 2:20 PM MEMO HODGES During your visit today, we recorded the following information about you: Temperature Pulse Respiration Blood pressure 98 degrees 80/minute 18/minute 122/76 Weight Height 73.5 kg 1.676 m Memo Hodges DO 05/05/2024 7:32 PM Signed Subjective The history is provided by the patient and a relative. Pt is here with his brother for ER f/u He does not speak Lebanese, and requests that his family member translate for him He was seen in the ED on 02/07 for abdominal pain He had CT of the abdomen showing small umbilical hernia as well as small b/l inguinal hernias Standing for long periods, bending down make the pain worse Heat makes the pain better Pain is 8-9/10 He has been taking naproxen for the pain which helps Denies nausea or vomiting, no diarrhea He has had cold symptoms for over 2 weeks He has a stuffy nose, sore throat, cough, left ear pain ALLERGIES No Known Allergies No current outpatient medications on file. No current facility-administered medications for this visit. ACTIVE PROBLEM LIST Hyperlipidemia, Mixed Social History Tobacco Use Smoking status: Never Smokeless tobacco: Never Substance Use Topics Alcohol use: Not Currently Drug use: Never Family History Problem Relation Age of Onset Coronary Artery Disease Father Stroke Father Diabetes Mother Reviewed past medical history, family history and surgeries. All medications and supplements were reviewed with the patient. Review of Systems Constitutional: Negative for chills, diaphoresis, fever, malaise/fatigue and weight loss. HENT: Positive for congestion and sinus pain. Negative for ear pain and hearing loss. Eyes: Negative for blurred vision and double vision. Respiratory: Positive for cough. Negative for shortness of breath. Cardiovascular: Negative for chest pain, palpitations and leg swelling. Gastrointestinal: Positive for abdominal pain. Negative for constipation, diarrhea, heartburn, nausea and vomiting. Genitourinary: Negative for dysuria and frequency. Musculoskeletal: Negative for back pain, falls, joint pain and myalgias. Skin: Negative for itching and rash. Neurological: Positive for dizziness and headaches. Negative for weakness. Endo/Heme/Allergies: Does not bruise/bleed easily. Psychiatric/Behaviora l: Negative for depression and substance abuse. The patient does not have insomnia. Objective Physical Exam Constitutional: Appearance: Normal appearance. HENT: Head: Normocephalic and atraumatic. Nose: Congestion and rhinorrhea present. Mouth/Throat: Mouth: Mucous membranes are moist. Dentition: Normal dentition. Pharynx: Oropharyngeal exudate and posterior oropharyngeal erythema present. Eyes: General: Lids are normal. Extraocular Movements: Extraocular movements intact. Conjunctiva/sclera: Conjunctivae normal. Pupils: Pupils are equal, round, and reactive to light. Neck: Thyroid: No thyroid mass or thyromegaly. Vascular: No carotid bruit. Trachea: Phonation normal. Cardiovascular: Rate and Rhythm: Regular rhythm. Heart sounds: Normal heart sounds. No murmur heard. No friction rub. No gallop. Pulmonary: Effort: Pulmonary effort is normal. Breath sounds: Normal breath sounds. No wheezing or rales. Abdominal: General: Bowel sounds are normal. There is no distension. Palpations: Abdomen is soft. There is no mass. Tenderness: There is abdominal tenderness (generalized abdominal tenderness). Musculoskeletal: General: No swelling or tenderness. Normal range of motion. Cervical back: Normal range of motion and neck supple. No edema. Lymphadenopathy: Cervical: No cervical adenopathy. Skin: General: Skin is warm and dry. Findings: No erythema or rash. Nails: There is no clubbing. Neurological: Mental Status: He is alert and oriented to person, place, and time. Cranial Nerves: No cranial nerve deficit. Motor: Motor function is intact. Coordination: Coordination normal. Gait: Gait is intact. Psychiatric: Attention and Perception: Attention normal. Mood and Affect: Mood and affect normal. Speech: Speech normal. Behavior: Behavior normal. Behavior is cooperative. Thought Content: Thought content normal. Cognition and Memory: Cognition and memory normal. Judgment: Judgment normal. ASSESSMENT/PLAN: 1. Abdominal pain, right upper quadrant - ICD9: 789.01, ICD10: R10.11 (primary diagnosis) - CONSULT TO GASTROENTEROLOGY - HYDROCODONE 5 MG-ACETAMINOPHEN 325 MG TABLET 2. Bacterial sinusitis - ICD9: 473.9, 041.9, ICD10: J32.9, B96.89 - AZITHROMYCIN 250 MG TABLET Memo Hodges DO Allergies As of Date: 04/18/2024 (No Known Allergies) Date Reviewed: 04/18/2024 Reviewed by: Sheldon Hodges (more content not included)... Normal [facility] 12 Lead EKGon 02-08-2024 12 Lead EKG [facility] Cardiovascular Services [address] [place] [address] 12 Lead EKG 02/08/24 0720 MR#: [id number] Acct: [id number] Name: DIMITRI MCCOY Rep #: [id number] : 1975 48 From: Dominic Zamora MD Attending Dr: Status: DEP ER Ordering Dr: Kane Baez DO Date: 02/08/24 Location: ED Sex: M H Admitted: Test Reason : Blood Pressure : */* mmHG Vent. Rate : 73 BPM Atrial Rate : 73 BPM P-R Int : 160 ms QRS Dur : 82 ms QT Int : 400 ms P-R-T Axes : 29 -7 15 degrees QTcB Int : 440 ms Normal sinus rhythm Minimal voltage criteria for LVH, may be normal variant ( R in aVL ) Borderline ECG Confirmed by DOMINIC ZAMORA MD ([id number]), market editor TIMO DAVIDSON ([id number]) on 02/09/2024 8:09:42 AM Referred By: Confirmed By: DOMINIC ZAMORA MD 02/09/24 0809 Date Dominic Zamora MD CC: Dr. Kane Baez DO; Dr. Nate Jacobo MD Signed Normal [facility] Abdomen/Pelvis W IV Cont ONL Yon 02-08-2024 Abdomen/Pelvis W IV Cont ONLY [facility] Imaging Services [address], [place] [address] Abdomen/Pelvis W IV Cont ONLY MR#: [id number] Acct: [id number] Name: DIMITRI MCCOY Rep #: [id number] : 1975 M 48 From: Cecilio ramos MD PCP: Dr. Nate Jacobo MD Status: REG ER Study: Abdomen/Pelvis W IV Cont ONLY Date of Exam: Exam# [id number] Ordering Dr: Kane Baez DO [id number] STUDY: CT ABDOMEN AND PELVIS WITH CONTRAST REASON FOR EXAM: Male, 48 years old. Abdominal pain x3 days RADIATION DOSAGE (If Supplied By Facility): CTDIvol = ( 11.28 ) mGy, DLP = ( 640.89 ) mGycm TECHNIQUE: Transaxial images were obtained from the dome of the diaphragm to the symphysis pubis without oral contrast. IV 100mL Isovue-370 was administered. Sagittal and coronal images were reconstructed. Individualized dose optimization techniques were used for this CT. COMPARISON: None. FINDINGS: Minimal linear atelectasis at the lung bases. The visualized portions of the heart are within normal limits. There is decreased attenuation of the liver consistent with steatosis. Normal gallbladder and extrahepatic biliary system. Normal spleen. Normal pancreas. Normal bilateral adrenal glands. Normal right kidney. Normal left kidney. Normal visualized stomach. Normal small intestine. Normal colon. The appendix is visualized and appears normal. Normal abdominal aorta. Normal inferior vena cava. Normal retroperitoneum. Small benign appearing lymph nodes are seen in the root of the mesentery suggestive of a mesenteric adenitis. Normal urinary bladder. There is a small umbilical hernia containing fat. The neck of the hernia measures 1.8 cm. Small bilateral inguinal hernias containing fat. Small bilateral benign-appearing inguinal lymph nodes. There are degenerative changes of the visualized lumbar spine. CT/Abdomen/Pelvis W IV Cont ONLY IMPRESSION: Fatty infiltration of the liver. Small umbilical hernia as well as small bilateral inguinal hernias containing fat. Findings suggestive of mesenteric adenitis. Electronically Signed: Cecliio Johnson MD at 8:24 EST , CC: Dr. Kane Baez DO; Dr. Nate Jacobo MD Draw Tender: Signed Normal [facility] Absolute neutrophil countOrd ered By: Kane Baez on 02-08-2024 Neutrophils (Bld) [#/Vol] 9.7 10*3/uL High 2.0-7.7 [facility] Albumin to globulin ratioOrd ered By: Kane Baez on 02-08-2024 Albumin/Globulin [Mass ratio] 1.1 {ratio} 0.9-2.4 [facility] Basophil percentageOrdered B y: Kane Baez on 02-08-2024 Basophils/100 WBC (Bld) 0.2 % 0-1 [facility] Bilirubin, totalOrdered By: Kane Baez on 02-08-2024 Bilirubin [Mass/Vol] 2.20 mg/dL High 0.20-1.00 [facility] Comment on above: For patients on eltr ombopag therapy, use of Dimension [place] TBIL is not recommended. Blood urea nitrogen (BUN)/cr eatinine ratioOrdered By: Kane Baez on 02-08-2024 Urea nitrogen/Creatinine [Mass ratio] 12.1 mg/mg 12-09 [facility] CBC W/Diff, Automatedon 01-20 Absolute Lymph 2.72 X10 3/uL Normal 0.83-4.51 [facility] Comment on above: Performed By: #### L 501.2450, L100.0100, L503.6005, L500.4050 ####[facility] [address] [place], [address] Absolute Neut 9.7 X10 3/uL High 2.0-7.7 [facility] Comment on above: Performed By: #### L 501.2450, L100.0100, L503.6005, L500.4050 ####[facility] [address] [place], [address] Basophils/100 WBC (Bld) 0.2 % Normal 0-1 [facility] Comment on above: Performed By: #### L 501.2450, L100.0100, L503.6005, L500.4050 ####[facility] [address] [place], [address] Eosinophils/100 WBC (Bld) 1.6 % Normal 0-5 [facility] Comment on above: Performed By: #### L 501.2450, L100.0100, L503.6005, L500.4050 ####[facility] [address] [place], [address] Erythrocyte distribution width (RBC) [Ratio] 12.8 % Normal 11.6-14.6 [facility] Comment on above: Performed By: #### L 501.2450, L100.0100, L503.6005, L500.4050 ####[facility] [address] [place], [address] Hematocrit (Bld) [Volume fraction] 41.2 % Normal 40-54 [facility] Comment on above: Performed By: #### L 501.2450, L100.0100, L503.6005, L500.4050 ####[facility] [address] [place], [address] Hemoglobin (Bld) [Mass/Vol] 14.2 g/dL Normal 13.0-16. 5 [facility] Comment on above: Performed By: #### L 501.2450, L100.0100, L503.6005, L500.4050 ####[facility] [address] [place], [address] IG% 0.400 Normal 0.0-0.9 [facility] Comment on above: Result Comment: IG% - Immature Granulocytes (promyelocytes, myelocytes and metamyelocytes) > 1% indicates that a LEFT SHIFT is Present. Performed By: #### L 501.2450, L100.0100, L503.6005, L500.4050 ####[facility] [address] [place], [address] Lymphocytes/100 WBC (Bld) 20.4 % Normal 19-41 [facility] Comment on above: Performed By: #### L 501.2450, L100.0100, L503.6005, L500.4050 ####[facility] [address] [place], [address] MCH (RBC) [Entitic mass] 30.5 pg Normal 27.0-32.0 [facility] Comment on above: Performed By: #### L 501.2450, L100.0100, L503.6005, L500.4050 ####[facility] [address] [place], [address] MCHC (RBC) [Mass/Vol] 34.5 g/dL Normal 32-36 [facility] Comment on above: Performed By: #### L 501.2450, L100.0100, L503.6005, L500.4050 ####[facility] [address] [place], [address] MCV (RBC) [Entitic vol] 88.4 fL Normal 80-94 [facility] Comment on above: Performed By: #### L 501.2450, L100.0100, L503.6005, L500.4050 ####[facility] [address] [place], [address] Monocytes/100 WBC (Bld) 4.9 % Normal 0-10 [facility] Comment on above: Performed By: #### L 501.2450, L100.0100, L503.6005, L500.4050 ####[facility] [address] [place], [address] Neutrophils/100 WBC (Bld) 72.5 % High 47-70 [facility] Comment on above: Performed By: #### L 501.2450, L100.0100, L503.6005, L500.4050 ####[facility] [address] [place], [address] Nucleated RBC (Bld) [#/Vol] 0 10*3/uL Normal 0-5 [facility] Comment on above: Performed By: #### L 501.2450, L100.0100, L503.6005, L500.4050 ####[facility] [address] [place], [address] Platelet mean volume (Bld) [Entitic vol] 13.5 fL High 6.2-12.0 [facility] Comment on above: Performed By: #### L 501.2450, L100.0100, L503.6005, L500.4050 ####[facility] [address] [place], [address] Platelets (Bld) [#/Vol] 135 10*3/uL Low 150-450 [facility] Comment on above: Performed By: #### L 501.2450, L100.0100, L503.6005, L500.4050 ####[facility] [address] [place], [address] RBC (Bld) [#/Vol] 4.66 10*6/uL Normal 4.6-6.2 [facility] Comment on above: Performed By: #### L 501.2450, L100.0100, L503.6005, L500.4050 ####[facility] [address] [place], [address] RDW SD 41.3 fl Normal 35.1-43.9 [facility] Comment on above: Performed By: #### L 501.2450, L100.0100, L503.6005, L500.4050 ####[facility] [address] [place], [address] WBC (Bld) [#/Vol] 13.4 10*3/uL High 4.4-11.0 [facility] Comment on above: Performed By: #### L 501.2450, L100.0100, L503.6005, L500.4050 ####[facility] [address] [place], [address] Carbon dioxide measurementOr dered By: Kane Baez on 02-08-2024 CO2 [Moles/Vol] 27.0 mmol/L 21.0-32.0 [facility] Chloride measurementOrdered By: Kane Baez on 02-08-2024 Chloride [Moles/Vol] 102 mmol/L 98-107 [facility] Comprehensive Metabolic Prof ilon 02-08-2024 Albumin [Mass/Vol] 4.2 g/dL Normal 3.2-5.0 [facility] Comment on above: Performed By: #### L 501.2450, L100.0100, L503.6005, L500.4050 ####[facility] [address] [place], [address] Albumin/Globulin [Mass ratio] 1.1 {ratio} Normal 0.9-2.4 [facility] Comment on above: Performed By: #### L 501.2450, L100.0100, L503.6005, L500.4050 ####[facility] [address] [place], [address] ALK P 101 U/L Normal 45-117 [facility] Comment on above: Performed By: #### L 501.2450, L100.0100, L503.6005, L500.4050 ####[facility] [address] [place], [address] ALT [Catalytic activity/Vol] 19 U/L Normal 16-61 [facility] Comment on above: Performed By: #### L 501.2450, L100.0100, L503.6005, L500.4050 ####[facility] [address] [place], [address] AST [Catalytic activity/Vol] 18 U/L Normal 15-37 [facility] Comment on above: Performed By: #### L 501.2450, L100.0100, L503.6005, L500.4050 ####[facility] [address] [place], [address] Bilirubin [Mass/Vol] 2.20 mg/dL High 0.20-1.00 [facility] Comment on above: Result Comment: For patients on eltrombopag therapy, use of Dimension [place] TBIL is not recommended. Performed By: #### L 501.2450, L100.0100, L503.6005, L500.4050 ####[facility] [address] [place], [address] BUN/CRE 12.1 RATIO Normal 10-20 [facility] Comment on above: Performed By: #### L 501.2450, L100.0100, L503.6005, L500.4050 ####[facility] [address] [place], [address] CA,Total 7.2 mg/dL Low 8.5-10.1 [facility] Comment on above: Performed By: #### L 501.2450, L100.0100, L503.6005, L500.4050 ####[facility] [address] [place], [address] Chloride [Moles/Vol] 102 mmol/L Normal 98-107 [facility] Comment on above: Performed By: #### L 501.2450, L100.0100, L503.6005, L500.4050 ####[facility] [address] [place], [address] CO2 [Moles/Vol] 27.0 mmol/L Normal 21.0-32.0 [facility] Comment on above: Performed By: #### L 501.2450, L100.0100, L503.6005, L500.4050 ####[facility] [address] [place], [address] Creatinine [Mass/Vol] 1.07 mg/dL Normal 0.70-1.30 [facility] Comment on above: Result Comment: The validity of the calculated GFR GFRAA in patients over 70 years has not been determined. Clinical correlation is essential. Performed By: #### L 501.2450, L100.0100, L503.6005, L500.4050 ####[facility] [address] [place], [address] ECRCL 83.46 ml/min Normal [facility] Comment on above: Performed By: #### L 501.2450, L100.0100, L503.6005, L500.4050 ####[facility] [address] [place], [address] EST GFR - AA 95 mL/min Normal >60 [facility] Comment on above: Result Comment: Afri can Surinamese GFR Calc Performed By: #### L 501.2450, L100.0100, L503.6005, L500.4050 ####[facility] [address] [place], [address] GAP 7 Normal 5-15 [facility] Comment on above: Performed By: #### L 501.2450, L100.0100, L503.6005, L500.4050 ####[facility] [address] [place], [address] GFR/1.73 sq M.predicted among non-blacks MDRD (S/P/Bld) [Vol rate/Area] 79 mL/min/{1.73_m2} Normal >60 [facility] Comment on above: Result Comment: Non- GFR Calc Performed By: #### L 501.2450, L100.0100, L503.6005, L500.4050 ####[facility] [address] [place], [address] Globulin (S) [Mass/Vol] 3.9 g/dL Normal 2.2-4.2 [facility] Comment on above: Performed By: #### L 501.2450, L100.0100, L503.6005, L500.4050 ####[facility] [address] [place], [address] Glucose [Mass/Vol] 159 mg/dL High 74-106 [facility] Comment on above: Result Comment: Fast ing Glucose result greater than or equal to 126 mg/dL suggests DIABETES MELLITUS per A.D.A. criteria. Performed By: #### L 501.2450, L100.0100, L503.6005, L500.4050 ####[facility] [address] [place], [address] Potassium [Moles/Vol] 3.8 mmol/L Normal 3.5-5.1 [facility] Comment on above: Performed By: #### L 501.2450, L100.0100, L503.6005, L500.4050 ####[facility] [address] [place], [address] Sodium [Moles/Vol] 136 mmol/L Normal 136-145 [facility] Comment on above: Performed By: #### L 501.2450, L100.0100, L503.6005, L500.4050 ####[facility] [address] [place], [address] T PROT 8.1 g/dL Normal 6.4-8.2 [facility] Comment on above: Performed By: #### L 501.2450, L100.0100, L503.6005, L500.4050 ####[facility] [address] [place], [address] Urea nitrogen [Mass/Vol] 13 mg/dL Normal 7-18 [facility] Comment on above: Performed By: #### L 501.2450, L100.0100, L503.6005, L500.4050 ####[facility] [address] [place], [address] Emergency Department Summary on 02-08-2024 Emergency Department Summary [facility] Medical Records Department [address] [place] [address] Emergency Department Summary 02/08/24 MR#: [id number] Acct: [id number] Name: DIMITRI MCCOY Rep #: [id number] : 1975 48 From: Kane Baez DO PCP: Dr. Nate Jacobo MD Status:DEP ER Location: ED HPI HPI - GI History of Present Illness Chief Complaint: Abd Pain Detail of Chief Complaint: Abdominal pain Informant: patient and family Narrative Narrative: Patient is a Filipino-speaking 48-year-old presents with abdominal pain that has had for about 3 days. Pain became more severe yesterday. He points to the center of his abdomen as the location of pain. 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 Patient currently rates his pain an 8 out of 10. He said no nausea or vomiting. Denies fever. Denies diarrhea. Denies blood in the stool or black tarry stool. He has not had no prior abdominal surgeries. Pain made worse by movement. Food does not seem to affect it. [facility] Medical History (Updated 02/08/24 @ 08:[address] Kane Baez DO) No pertinent past medical history Home Medications ???Medication ???Instructions ???Recorded ???Last Taken ???Type naproxen 500 mg tablet 500 mg PO BID PRN #20 tabs 12/11/18 Unknown Rx hydrocodone-acetamino phen 5-325mg 1 tab PO Q4H PRN PRN Pain 2 days 02/08/24 Unknown Rx 5mg-325mg #10 TABLETS lansoprazole 30 mg capsule,delayed 30 mg PO DAILY #14 caps 02/08/24 Unknown Rx release (Prevacid) Allergy/AdvReac Type Severity Reaction Status Date / Time No Known Allergies Allergy Verified 12/11/18 16:31 Social History (System 10/23/18 @ 14:14 by Madalyn Hatfield) Smoking Status: Never smoker ROS ROS ED Review of Systems ROS Unobtainable: other Constitutional Constitutional ED: Reports lethargy; Denies chills, fever(s), sweats or weight loss Eyes Eyes: Denies blurry vision, change in vision or diplopia ENT ENT ED: Denies rhinorrhea or sore throat Cardiovascular Cardiovascular: Denies chest pain, orthopnea or racing heartbeat Respiratory/Chest Respiratory/Chest: Denies cough, dyspnea, dyspnea on exertion, orthopnea or sputum Gastrointestinal Gastrointestinal: Reports abdominal pain; Denies diarrhea, nausea or vomiting Genitourinary Genitourinary ED: Denies dysuria, hematuria or urinary frequency Musculoskeletal Musculoskeletal: Denies arthralgias, back pain, myalgias or neck pain Integumentary Denies abscess, Abrasions or rash Neurologic Neurologic: Denies headache(s) or weakness Psychiatric Psychiatric: Denies anxiety, depression or suicidal thoughts Endocrine Endocrinology: Denies polydipsia, polyphagia or polyuria Hematologic/Lymphatic Hematologic/Lymphatic : Denies easy bleeding, easy bruising or lymphadenopathy Allergic/Immunologic Allergic/Immunologic ED: Denies mouth swelling, tongue swelling or urticaria EXAM Physical Exam Const Vital Signs: 02/08/24 06:53 Temperature 98.5 F Temperature Source Oral Pulse Rate 78 Respiratory Rate 18 Blood Pressure 127/82 H Blood Pressure Mean 97 Pulse Ox 96 Positive well nourished and well developed General Appearance ED: well developed and NAD HEENT Reports TM's clear and moist mucous membranes normocephalic and atraumatic; Negative for trauma or tenderness Tympanic Membrane ED: Yes TM's clear Eyes PERRL and EOMs intact bilaterally General Eye ED: Negative for pale conjunctiva or scleral icterus Neck no lymphadenopathy, supple and no JVD General: Negative for tenderness Chest Wall inspection of chest normal and palpation of chest normal Chest: Negative for tenderness Resp normal respiratory effort and clear to auscultation bilaterally Effort and Inspection: Negative for respiratory distress or pain with movement Auscultation: Negative for rhonchi, wheezes or diminished lung sounds Cardio regular rate, regular rhythm, S1 normal heart sound, S2 normal heart sound and no murmurs Peripheral Pulses: pulses 2+ throughout GI normal to inspection, nondistended, normoactive bowel sounds, soft to palpation, non-distended and no masses GI Narrative: Tenderness to palpation diffusely in the upper and lower abdomen. There is guarding. There is no rebound, rigidity, or peritoneal signs. No masses palpated. Back/Spine no CVA tenderness and no thoracic nor lumbar tenderness Extremity normal to inspection General Extremety ED: Negative for edema General Extremity: Negative for edema Neuro oriented x3, CN's II-XII intact bilaterally, no sensory deficits noted and gait normal Sensorium / Orientation: awake, alert, oriented to person, oriented to place and oriented to time Motor Exam: strength 5/5 throughout and strength abnorma (more content not included)... Normal [facility] Eosinophil percentageOrdered By: Kane Baez on 02-08-2024 Eosinophils/100 WBC (Bld) 1.6 % 0-5 [facility] Erythrocyte distribution wid th (RBC) [Ratio]Ordered By: Kane Baez on 02-08-2024 Erythrocyte distribution width (RBC) [Entitic vol] 41.3 fL 35.1-43.9 [facility] Erythrocyte distribution wid th ratioOrdered By: Kane Baez on 02-08-2024 Erythrocyte distribution width (RBC) [Ratio] 12.8 % 11.6-14.6 [facility] Estimated glomerular filtrat ion rate (GFR) AmericanOrdered By: Kane Baez on 02-08-2024 Estimated GFR (MDRD) Amer 95 mL/min >60 [facility] Comment on above: GFR Calc Estimation of creatinine grayson aranceOrdered By: Kane Baez on 02-08-2024 Estimated Creatinine Clearance Calc 83.46 ml/min [facility] Glomerular filtration rate ( GFR) estimationOrdered By: Kane Baez on 02-08-2024 Estimated GFR (MDRD) Non-Af Amer 79 mL/min >60 [facility] Comment on above: Non- GFR Calc Glucose measurementOrdered B y: Kane Baez on 02-08-2024 Glucose [Mass/Vol] 159 mg/dL High 74-106 [facility] Comment on above: Fasting Glucose resu lt greater than or equal to 126 mg/dL suggests DIABETES MELLITUS per A.D.A. criteria. Hematocrit Auto (Bld) [Volum e fraction]Ordered By: Kane Baez on 02-08-2024 Hematocrit (Bld) [Volume fraction] 41.2 % 40-54 [facility] Hemoglobin measurementOrdere d By: Kane Baez on 02-08-2024 Hemoglobin (Bld) [Mass/Vol] 14.2 g/dL 13.0-16. 5 [facility] Immature granulocytes/100 WB C Auto (Bld)Ordered By: Kane Baez on 02-08-2024 Immature granulocytes/100 WBC (Bld) 0.400 % 0.0-0.9 [facility] Comment on above: IG% - Immature Granu locytes (promyelocytes, myelocytes and metamyelocytes) > 1% indicates that a LEFT SHIFT is Present. Laboratory - Chemistry and C hemistry - challengeOrdered By: Kane Baez on 02-08-2024 AST [Catalytic activity/Vol] 18 U/L 15-37 [facility] Lactic Acidon 02-08-2024 Lactate [Moles/Vol] 0.8 mmol/L Normal 0.4-1.9 [facility] Comment on above: Order Comment: Y Performed By: #### L 501.2450, L100.0100, L503.6005, L500.4050 ####[facility] [address] [place], [place], [address] Lactic acid measurementOrder ed By: Kane Baez on 02-08-2024 Lactate [Moles/Vol] 0.8 mmol/L 0.4-2.0 [facility] Lipaseon 02-08-2024 Lipase [Catalytic activity/Vol] 29 U/L Normal 13-75 [facility] Comment on above: Result Comment: Kaitlynn martinez note: LIPASE revised reference range effective 22. New Lipase methodology. Expected to produce lower values than the previous assay method. NEW Reference Range: 13 - 75 U/L Performed By: #### L 501.2450, L100.0100, L503.6005, L500.4050 ####[facility] [id number] [place], [place], [address] Lipase measurementOrdered By : Kane Baez on 02-08-2024 Lipase [Catalytic activity/Vol] 29 U/L 13-75 [facility] Comment on above: Please note:LIPASE r evised reference range effective 22. New Lipase methodology. Expected to produce lower values than the previous assay method. NEW Reference Range: 13 - 75 U/L Lymphocytes Auto (Unsp spec) [#/Vol]Ordered By: Kane Baez on 02-08-2024 Lymphocytes (Bld) [#/Vol] 2.72 10*3/uL 0.83-4.5 1 [facility] Lymphocytes/100 WBC Auto (Un sp spec)Ordered By: Kane Baez on 02-08-2024 Lymphocytes/100 WBC (Bld) 20.4 % 19-41 [facility] MCV (mean corpuscular volume ) determinationOrdered By: Kane Baez on 02-08-2024 MCV (RBC) [Entitic vol] 88.4 fL 80-94 [facility] Mean corpuscular hemoglobin (MCH) determinationOrdered By: Remus Ungur on 02-08-2024 MCH (RBC) [Entitic mass] 30.5 pg 27.0-32.0 [facility] Mean corpuscular hemoglobin concentration (MCHC) determinationOrdered By: Remus Ungur on 02-08-2024 MCHC (RBC) [Mass/Vol] 34.5 g/dL 32-36 [facility] Mean platelet volume determi nationOrdered By: Remus Ungur on 02-08-2024 Platelet mean volume (Bld) [Entitic vol] 13.5 fL High 6.2-12.0 [facility] Monocyte percentageOrdered B y: Remus Ungur on 02-08-2024 Monocytes/100 WBC (Bld) 4.9 % 0-10 [facility] Neutrophil percentageOrdered By: Remus Ungur on 02-08-2024 Neutrophils/100 WBC (Bld) 72.5 % High 47-70 [facility] Nucleated red blood cell per centageOrdered By: Remus Ungur on 02-08-2024 Nucleated RBC/100 WBC (Bld) [Ratio] 0 % 0-5 [facility] Platelet countOrdered By: Re mus Ungbridget on 02-08-2024 Platelets (Bld) [#/Vol] 135 10*3/uL Low 150-450 [facility] Potassium measurementOrdered By: Remus Ungbridget on 02-08-2024 Potassium [Moles/Vol] 3.8 mmol/L 3.5-5.1 [facility] RBC Auto (Bld) [#/Vol]Ordere d By: Remus Ungur on 02-08-2024 RBC (Bld) [#/Vol] 4.66 10*6/uL 4.6-6.2 [facility] Serum anion gap measurementO rdered By: Remus Ungur on 02-08-2024 Anion gap [Moles/Vol] 7 mmol/L 5-15 [facility] Serum globulin measurementOr dered By: Remus Ungur on 02-08-2024 Globulin (S) [Mass/Vol] 3.9 g/dL 2.2-4.2 [facility] Serum or plasma alanine ghosh otransferase (ALT) measurementOrdered By: Remus Ungbridget on 02-08-2024 ALT [Catalytic activity/Vol] 19 U/L 16-61 [facility] Serum or plasma albumin anders urement (mass/volume)Ordered By: Remus Ungur on 02-08-2024 Albumin [Mass/Vol] 4.2 g/dL 3.2-5.0 [facility] Serum or plasma alkaline brandi sphatase measurementOrdered By: Remus Ungur on 02-08-2024 ALP [Catalytic activity/Vol] 101 U/L 45-117 [facility] Serum or plasma calcium anders urement (mass/volume)Ordered By: Remus Ungur on 02-08-2024 Calcium [Mass/Vol] 7.2 mg/dL Low 8.5-10.1 [facility] Serum or plasma creatinine m easurement (mass/volume)Ordered By: Remus Ungbridget on 02-08-2024 Creatinine [Mass/Vol] 1.07 mg/dL 0.70-1.30 [facility] Comment on above: The validity of the calculated GFR & GFRAA in patients over 70 years has not been determined. Clinical correlation is essential. Serum or plasma urea nitroge n measurement (mass/volume)Ordered By: Rem Sasha on 02-08-2024 Urea nitrogen [Mass/Vol] 13 mg/dL 7-18 [facility] Sodium levelOrdered By: Remu s Sasha on 02-08-2024 Sodium [Moles/Vol] 136 mmol/L 136-145 [facility] Total proteinOrdered By: Rem us Ungbridget on 02-08-2024 Protein [Mass/Vol] 8.1 g/dL 6.4-8.2 [facility] White blood cell (WBC) count Ordered By: Remus Sasha on 02-08-2024 WBC (Bld) [#/Vol] 13.4 10*3/uL High 4.4-11.0 [facility] Vital Signs Date Time Vital Sign Value Performing Clinician Facility 09-11-2024 12:29-0400 Body temperature 97.7 [degF] Dr. Nate Jacobo MD Work Phone: [facility] 09-11-2024 12:29-0400 Diastolic blood pressure 87 mm[Hg] Dr. Nate Jacobo MD Work Phone: 9(857)[phone] [place] [address] 09-11-2024 12:29-0400 Heart rate 62 /min Dr. Nate Jacobo MD Work Phone: 0(107)259-503744 [place] [address] 09-11-2024 12:29-0400 Respiratory rate 16 /min Dr. Nate Jacobo MD Work Phone: 2(475)224-487544 [place] [address] 09-11-2024 12:29-0400 SaO2% (BldA) [Mass fraction] 98 % Dr. Nate Jacobo MD Work Phone: 9(915)689-588444 [place] [address] 09-11-2024 12:29-0400 Systolic blood pressure 120 mm[Hg] Dr. Nate Jacobo MD Work Phone: 8(293)708-523844 [place] [address] 09-11-2024 10:35-0400 Body height 172.[address] Nate Jacobo MD Work Phone: 5(164)479-459044 [place] [address] 09-11-2024 10:35-0400 Body mass index (BMI) [Ratio] 24.1 kg/m2 Dr. Nate Jacobo MD Work Phone: 0(204)461-574844 [place] [address] 09-11-2024 10:35-0400 Body weight [address] Nate Jacobo MD Work Phone: [facility] 04-18-2024 14:19-0500 Body height 167.6 cm Memo Sheets DO Work Phone: [facility] 04-18-2024 14:19-0500 Body mass index (BMI) [Ratio] 26.15 kg/m2 Memo Sheets DO Work Phone: [facility] 04-18-2024 14:19-0500 Body temperature 98.01 [degF] Memo Sheets DO Work Phone: [facility] 04-18-2024 14:19-0500 Body weight 73.48 kg Memo Sheets DO Work Phone: [facility] 04-18-2024 14:19-0500 Diastolic blood pressure 76 mm[Hg] Memo Sheets DO Work Phone: [facility] 04-18-2024 14:19-0500 Heart rate 80 /min Memo Sheets DO Work Phone: [facility] 04-18-2024 14:19-0500 Respiratory rate 18 /min Memo Sheets DO Work Phone: [facility] 04-18-2024 14:19-0500 SaO2% (BldA) [Mass fraction] 97 % Memo Sheets DO Work Phone: [facility] 04-18-2024 14:19-0500 Systolic blood pressure 122 mm[Hg] Memo Sheets DO Work Phone: [facility] 02-08-2024 09:14-0500 Body temperature 98.2 [degF] Dr. Nate Jacobo MD Work Phone: [facility] 02-08-2024 09:14-0500 Diastolic blood pressure 74 mm[Hg] Dr. Nate Jacobo MD Work Phone: [facility] 02-08-2024 09:14-0500 Heart rate 78 /min Dr. Nate Jacobo MD Work Phone: [facility] 02-08-2024 09:14-0500 Respiratory rate 15 /min Dr. Nate Jacobo MD Work Phone: [facility] 02-08-2024 09:14-0500 SaO2% (BldA) [Mass fraction] 99 % Dr. Nate Jacobo MD Work Phone: [facility] 02-08-2024 09:14-0500 Systolic blood pressure 128 mm[Hg] Dr. Nate Jacobo MD Work Phone: [facility] 02-08-2024 06:53-0500 Body height 172.[address] Nate Jacobo MD Work Phone: [facility] 02-08-2024 06:53-0500 Body mass index (BMI) [Ratio] 25.4 kg/m2 Dr. Nate Jacobo MD Work Phone: [facility] 02-08-2024 06:53-0500 Body weight 75.[address] Nate Jacobo MD Work Phone: [facility] Encounters Encounter Date Encounter Type Care Provider Facility Start: 09-11-2024 ambulatory Nicho Bee Facility :[facility] Start: 09-11-2024 Non-patient / Non-visit [facility] DO -[facility] Start: 09-11-2024 End: 09-11-2024 Admission to same day surgery center Nicho Menard DO -Endoscopy Work Phone: Start: 09-11-2024 End: 09-11-[address] Nate Jacobo MD Work Phone: -Endoscopy Start: 07-29-2024 End: 07-29-2024 Patient encounter procedure Ericka Carr NP-C -[facility] Work Phone: Start: 07-29-2024 End: 07-29-[address] Nate Jacobo MD Work Phone: [facility] Work Phone: Start: 07-16-2024 ambulatory Nate Jacobo Facili ty:[facility] Start: 06-25-2024 End: 06-25-[address] Nate Jacobo MD Work Phone: [facility] Work Phone: Start: 06-25-2024 End: 06-25-2024 Patient encounter procedure Ericka Carr NP-C -Cat Scan, [facility] Work Phone: Start: 06-25-2024 End: 06-25-2024 ambulatory Ericka Carr Facility:[facility] Start: 06-11-2024 End: 06-11-2024 Patient encounter procedure Ericka Carr NP-C -Ultrasound, [facility] Work Phone: Start: 06-11-2024 End: 06-11-2024 ambulatory Ericka Carr Facility:[facility] Start: 05-27-2024 End: 05-27-2024 Patient encounter procedure Ericka Bruno GOLF TEACHER-C -[facility] Work Phone: Start: 05-27-2024 End: 05-27-[address] Nate Jacobo MD Work Phone: [facility] Work Phone: Start: 05-27-2024 End: 05-27-2024 ambulatory Ericka Carr Facility:[facility] Start: 04-18-2024 End: 04-18-2024 Patient encounter procedure Memo Hodges DO Work Phone: [facility] Comment on above: Abdominal pain, righ t upper quadrant (Primary Dx); Bacterial sinusitis Start: 04-18-2024 End: 04-18-2024 ambulatory MMEOSRUTHI HODGES Facility:[facility] Start: 02-08-2024 End: 02-08-2024 Emergency department patient visit Dr. Kane Baez DO -Emergency Department Work Phone: Procedures Date Procedure Procedure Detail Performing Clinician Start: 09-11-[address] Nate Jacobo MD Work Phone: Start: 06-25-2024 Computed tomography of abdomen and pelvis with contrast Dr. Nate Jacobo MD Work Phone: Start: 06-11-2024 Ultrasound elastogra phy of liver Dr. Nate Jacobo MD Work Phone: Start: 05-27-[address] Silverio Jacobo MD Work Phone: Comment on above: The atypical pANCA p attern has been observed in asignificant percentage of patients with ulcerative colitis,primary sclerosing cholangitis and autoimmune hepatitis. Start: 05-27-2024 Antibody to centrome re measurement Dr. Nate Jacobo MD Work Phone: Comment on above: Previous reported re sult: TNP AIEdited by: INFCE on 05/28/24:1508 AMENDED REPORT 05/28/24 1508 ANTI-CENT B previously reported as: Test not performed Start: 05-27-2024 Antibody to extracta ble nuclear antigen measurement Dr. Nate Jacobo MD Work Phone: Comment on above: Previous reported re sult: TNP AIEdited by: INFCE on 05/28/24:1508 AMENDED REPORT 05/28/24 1508 BOWDEN Ab previously reported as: Test not performed Start: 05-27-2024 Antibody to GUADALUPE-[address] Nate Jacobo MD Work Phone: Comment on above: Previous reported re sult: TNP AIEdited by: INFCE on 05/28/24:1508 AMENDED REPORT 05/28/24 1508 ANTI-GUADALUPE previously reported as: Test not performed Start: 05-27-2024 Antibody to lupus La protein measurement Dr. Nate Jacobo MD Work Phone: Comment on above: Previous reported re sult: TNP AIEdited by: INFCE on 05/28/24:1508 AMENDED REPORT 05/28/24 1508 Anti-SS-B previously reported as: Test not performed Start: 05-27-2024 Antibody to SS-A measurement Dr. Nate Jacobo MD Work Phone: Comment on above: Previous reported re sult: TNP AIEdited by: INFCE on 05/28/24:1508 AMENDED REPORT 05/28/24 1508 Anti-SS-A previously reported as: Test not performed Start: 05-27-[address] Nate Jacobo MD Work Phone: Comment on above: Previous reported re sult: TNP AIEdited by: INFCE on 05/28/24:1508 AMENDED REPORT 05/28/24 1508 ANTICHROMATIN previously reported as: Test not performed Start: 05-27-2024 Hepatitis A virus antibody, IgM type Dr. Nate Jacobo MD Work Phone: Comment on above: A negative anti-HAV IgM result suggests no recent orcurrent HAV infection. Start: 05-27-2024 Hepatitis B core ant ibody measurement, IgM type Dr. Nate Jacobo MD Work Phone: Start: 05-27-2024 Hepatitis C antibody measurement Dr. Nate Jacobo MD Work Phone: Start: 05-27-2024 TRASH TRUCK DRIVER antibody measurement Dr. Nate Jacobo MD Work Phone: Comment on above: Previous reported re sult: TNP AIEdited by: NESHA on 05/28/24:1508 AMENDED REPORT 05/28/24 1508 TRASH TRUCK DRIVER Ab previously reported as: Test not performed Start: 02-08-2024 Computed tomography of abdomen and pelvis with intravenous contrast Dr. Nate Jacobo MD Work Phone: Start: 06-18-2018 Lipid 1996 panel - S laura or Plasma Memo Sheets DO Work Phone: Plan of Treatment Date Care Activity Detail Author Start: 09-11-2024 Patient discharge [facility] Start: 02-08-2024 End: 02-08-2024 [facility] Start: 10-22-2023 Covid-19 Vaccine ( season) Covid-19 Vaccine ( season) [facility] Start: 10-22-2023 Influenza vaccination [facility] Start: 06-19-2023 Lipid panel Lipid Screening [facility] Start: 2022 Diabetes Screening Diabetes Screening [facility] Start: 2022 Screening for malignant neoplasm of colon [facility] Start: 09-20-2021 Urine microalbumin profile DTaP,Tdap,Td Vaccine (2 - Td or Tdap) [facility] Start: 1996 Hepatitis B Vaccine (1 of 3 - 19+ 3-dose series) Hepatitis B Vaccine (1 of 3 - 19+ 3-dose series) [facility] Start: 05-21-1995 Anxiety Screening Anxiety Screening [facility] Start: 05-21-1995 Depression Screening Depression Screening [facility] Start: 05-21-1995 Hepatitis C screening Hepatitis C Screening [facility] Start: 05-21-1995 HIV screening HIV Screening [facility] CT Abdomen and Pelvi s W contrast IV [facility] Liver stiffness by US.transient elastography [facility] Patient Education ED Abdominal P ain Unkn Cause Male... [facility] Work Phone: Patient referral [facility] Work Phone: Triacylglycerol lipa se measurement [facility] Immunizations Immunization Date Immunization Notes Care Provider Deanna may 12-09-2022 influenza virus vaccine, unspecified formulation Memo Sheets DO Work Phone: [facility] 05-12-2018 influenza, injectabl e, quadrivalent, preservative free Dr. Nate Jacobo MD Work Phone: [facility] 05-12-2018 influenza, seasonal, injectable, preservative free Memo Sheets DO Work Phone: [facility] 12-17-2016 influenza, injectabl e, quadrivalent, preservative free Memo Sheets DO Work Phone: [facility] 12-20-2014 influenza, seasonal, injectable Memo Sheets DO Work Phone: [facility] 12-19-2014 influenza, seasonal, injectable, preservative free Memo Sheets DO Work Phone: [facility] 07-08-2013 measles, mumps and rubella virus vaccine Memo Sheets DO Work Phone: [facility] 09-21-2011 tetanus toxoid, redu marquise diphtheria toxoid, and acellular pertussis vaccine, adsorbed Memo Sheets DO Work Phone: [facility] Payers Date Payer Category Payer Self-pay 2018 Private Health Insurance [facility] [employer] [id number] 2018 Unknown [id number] Unknown [id number] Unknown [id number] Unknown [id number] Unknown [id number] Unknown [id number] Unknown [id number] Unknown [id number] Unknown [id number] Unknown [id number] Social History Date Type Detail Facility Start: 06-13-2011 End: 09-10-2024 Tobacco smoking status CTIS Never smoked tobacco [facility] Work Phone: Start: 06-13-2011 Tobacco use and exposure Smokeless tobacco non-user [facility] Start: 04-18-2024 Alcoholic beverage intake Ex-drinker (finding) [facility] Start: 01-26-2020 End: 04-18-2024 History of Social function [facility] Start: 01-26-2020 End: 04-18-2024 Tobacco use panel [facility] Adult Depression Screening Assessment 0 [facility] Start: 1975 Sex assigned at Not on file C [facility] Start: 08-05-2018 None None [facility] Start: 05-11-2018 With Family With Family [facility] Start: 05-30-2024 Sex Male (finding) [facility] Start: 1975 Sex Assigned At Male [facility] Goals Date Patient Goal Desired Activity /State Functional Status Date Assessment Result Facility 06-19-2014 Are you deaf, or do you have serious difficulty hearing No 06/19/2014 5:21 PM EDHayley Ely LPN No [facility] 06-19-2014 Are you blind, or do you have serious difficulty seeing, even when wearing glasses No 06/19/2014 5:21 PM Hayley Platt LPN No [facility] 06-19-2014 Do you have serious difficulty walking or climbing stairs No 06/19/2014 5:21 PM Hayley Platt LPN No [facility] 06-19-2014 Do you have difficul ty dressing or bathing No 06/19/2014 5:21 PM Hayley Platt LPN No [facility] 06-19-2014 Because of a physica l, mental, or emotional condition, do you have difficulty doing errands alone such as visiting a physician's office or shopping No 06/19/2014 5:21 PM Hayley Platt LPN No [facility] Mental Status Date Assessment Result Facility 09-11-2024 Cognitive function Level Of Cons ciousness Sedated [facility] Work Phone: 09-11-2024 Cognitive function Voice/Name [facility] Work Phone: 06-19-2014 Because of a physica l, mental, or emotional condition, do you have serious difficulty concentrating, remembering, or making decisions No 06/19/2014 5:21 PM Hayley Platt LPN No [facility] Clinical Notes 04-18-2024 to 09-11-2024 Note Date & Type Note Facility 09-11-2024 Consult note Note Date/Time September 11, 2024 10:54am [facility] Medical Records Department [address] [place] [address] Pre-Anesthesia Evaluation 09/11/24 1049 MR#: [id number] Acct: [id number] Name: DIMITRI MCCOY Rep #:[id number] : 1975 49 From: Randy Wilson MD PCP: Dr. Nate Jacobo MD Status:R EG SD Y Race: H Location: [place] [address] ASA Classification* ASA Classification ASA Classification: 2 Assessment & Plan Anesthesia* Anesthesia Assessment Anesthesia Assessment: Discussed sedation and/or anesthesia options, risks, benefits, and alternatives with patient/parents/legal guardian/POA. Questions invited. The patient/parents/legal guardian/POA seems to understand and agrees to proceedwith anesthesia plan. Reviewed the physical assessment, medical history, allergy history and patient home medications list prior to surgery/procedure/anesthetic and documented any changes. Performed airway and anesthesia risk assessments. Anesthesia Type Anesthesia Type: MAC History Source History Obtained from:: Patient and Chart Anesthesia Focused Assessment* Temperature: 98.1 F Pulse Rate: 82 Blood Pressure: 128/92 Respiratory Rate: 16 Pulse Ox: 99 Oxygen Delivery Method: Room Air Airway Assessment Mouth opens: 2 cm Mallampati Score: IV Teeth Condition: Intact Neck Range of motion (ROM): Limited ROM (Slight Decrease) Labs Anesthesia Preop lab: CBC WBC 7.3 K/mm3 (4.4-11.0) 05/27/24 10:57 05/27/24 RBC 4.88 M/mm3 (4.6-6.2) 05/27/24 10:57 05/27/24 Hgb 14.7 g/dL (13.0-16.5) 05/27/24 10:57 05/27/24 Hct 43.2 % (40-54) 05/27/24 10:57 05/27/24 Plt Count 151 K/mm3 (150-450) 05/27/24 10:57 05/27/24 CHEMISTRY Potassium 4.2 mmol/L (3.3-5.1) 05/27/24 10:57 05/27/24 Sodium 138 mmol/L (133-145) 05/27/24 10:57 05/27/24 Magnesium 1.6 mg/dL (1.6-2.6) 05/11/18 06:03 05/11/18 BUN 16 mg/dL (4-19) 05/27/24 10:57 05/27/24 Creatinine 0.87 mg/dL (0.70-1.20) 05/27/24 10:57 05/27/24 Glucose 110 mg/dL (70-99) H 05/27/24 10:57 05/27/24 COAG PT 11.2 SECONDS (11.7-14.9) L 05/27/24 10:57 09/13 Pre-Assessment Diagnosis/Proposed Procedure Planned Operative Procedure(s): COLONOSCOPY Anesthesia History 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 When Was Last Pacemaker Check QUESTION #4 FULL TEXT: You/Your Family Experience fever (hyperthermia) with Anesthesia Last Oral Intake Last Oral intake: Last Oral Intake NPO since 00:00 09/11/24 10:35 Meds taken in AM with sips of No 09/11/24 10:35 water? 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 Female No 09/10/24 14:26 HX of Motion Sickness No 09/10/24 14:26 HX of N/V After Surgery No 09/10/24 14:26 Non-Smoker Yes 09/10/24 14:26 Duration of Surgery greater No 09/10/24 14:26 than 60 minutes Number of Risk Factors 1 09/10/24 14:26 PONV Score Low Risk 09/10/24 14:26 Height & Weight Height & Weight: Anesthesia: Height & Weight Height 5 ft 8 in 09/11/24 10:35 Weight: 72 kg 09/11/24 10:35 Body Mass Index (BMI) 24.1 09/11/24 10:35 Respiratory Assessment Respiratory Assessment - ingot buggy operator: Respiratory Tract Infection Hx - ingot buggy operator Hx Respiratory Tract Infection No 09/10/24 14:26 STOP Sleep Apnea STOP Sleep Apnea - ingot buggy operator: STOP Sleep Apnea - ingot buggy operator Hx Hypertension No 09/10/24 14:26 Hx Sleep Apnea No 09/10/24 14:26 CPAP BIPAP Do you snore loudly (louder No 09/10/24 14:26 than talking or can be heard Do you often feel tired/ No 09/10/24 14:26 fatigued/ sleepy during daytime? Has anyone observed you stop No 09/10/24 14:26 breathing during sleep? STOP Results Negative 09/10/24 14:26 QUESTION #5 FULL TEXT : Do you snore loudly (louder than talking or can be heard through closed doors)? 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 Specify any problems Hx of Preganancy in last 3 N/A 09/10/24 14:26 Months Nurse Filling Out Transfusion [id number] 09/10/24 14:26 & Questions: Date: 09/10/24 09/10/24 14:26 Time: 14:28 09/10/24 14:26 Patient unable to answer at this time (ie. confused, unrespo /Reproduction History /Reproductive History - ingot buggy operator: /Reproductive Hx- ingot buggy operator Hx Now Gestational Age (in weeks): EDC: Hx Hx Para Hx Section SAB Active Medications Active Medications: Current Medications Generic Name Dose Route Start Last Admin Trade Name Freq PRN Reason Stop Dose Admin Lactated Ringer's 1,000 mls @ 15 mls/hr 09/11/24 10:30 09/11/24 10:34 IV 15 mls/hr .Q48H SETH Administration PFSH Medical History Gastric reflux Home Medications ?Medication ?Instructions ?Recorded ?Last Taken ?Type naproxen 500 mg tablet 500 mg PO BID PRN #20 tabs 1 Unknown Rx hydrocodone-acetaminophen 5-325mg 1 tab PO Q4H PRN PRN Pain 2 days 02/08/24 Unknown Rx 5mg-325mg #10 TABLETS bisacodyl 5 mg tablet,delayed 20 mg (4 x 5 mg) PO ONCE #4 tabs 07/29/24 Unknown Rx release dicyclomine 10 mg capsule 10 mg PO TID PRN abdominal p ain 07/29/24 Unknown Rx #90 caps polyethylene glycol 3350 17 238 g PO ONCE #238 grams 0 07/29/24 Unknown Rx gram/dose oral powder (Miralax) pantoprazole 40 mg tablet,delayed 40 mg PO QDAY PRN GE RD 09/10/24 Unknown History release Allergy/AdvReac Type Severity Reaction Status Date / Time No Known Allergies Allergy Verified 09/11/24 10:35 Social History Smoking Status: Never smoker Review of Systems (Anesthesia) ROS Narrative System reviewed and no additional complaints, except as documented. 09/11/24 1054 <Electronically signed by Randy powell MD> Date _ Randy Wilson MD Cosigner Signature: Date CC: ~ Signed [facility] Work Phone: 1(736) 372-556707-23-2025 Procedure note [facility] Medical Records Department [address] [place] [address] Operative Report - CC Letter MR#: [id number] Acct: [id number] Name: DIMITRI MCCOY Rep #:[id number] : 1975 49 From: Nicho Bee DO PCP: Dr. Nate Jacobo MD Status:R [facility] [place]2024 Nate Jacobo [address] [place] [address] Re : Colonoscopy procedure for Dimitri Calero Armando Dear Dr. Jacobo This procedure was performed on Wednesday, September 11, 2024. My impressions and recommendations are as follows: Impressions : - Diverticulosis in the sigmoid colon. - One 5 mm polyp in the sigmoid colon, removed with a jumbo cold forceps. Resected and retrieved. - Congested mucosa in the sigmoid colon, in the descending colon and at the splenic flexure. Biopsied. - Congested mucosa in the distal ileum. Biopsied. Recommendations : - Discharge patient to home. - Resume previous diet. - Continue present medications. - Await pathology results. - Repeat colonoscopy in 5 years for surveillance. My findings are described in the full procedure note, which is enclosed. If I can be of further assistance, please feel free to contact me at . Sincerely, Nicho Bee DO 09/11/2024 12:13:26 PM This report has been signed electronically. 09/11/24 1213 Date _ Nicho Bee DO Cosigner Signature: Date (if indicated) CC: Dr. Nate Jacobo MD; Nicho Bee DO ~ Date Dictated: 09/11/24 1133 Date Transcribed: Draw Tender: RF Signed [facility]07-23-2025 Consult note [facility] Medical Records Department [address] [place] [address] Anesthesia Postop Eval I 09/11/24 1213 MR#: [id number] Acct: [id number] Name: DIMITRI MCCOY Rep #:[id number] : 1975 49 From: Fer Esparza PCP: Dr. Nate Jacobo MD Status:R [facility] [place] Race: H Location: [place] [address] Anesthesia: Postop Eval I Current Vital Signs Temperature: 97.3 F Pulse Rate: 64 Blood Pressure: 94/67 Respiratory Rate: 16 Pulse Ox: 98 Oxygen Delivery Method: Room Air Assessment Airway patent: Yes Spontaneous unlabored respirations: Yes Mental status: Asleep nausea: No Vomiting: No Anesthesia Complication: No Fluid Hydration Crystalloid volume administer (ml): 600 Total IV fluid infused: 600 Progress Note Anesthesia document: Postop Eval 1 completed: Yes 09/11/24 1213 > Date _ Fer Harrellignrachel Signature: Date CC: ~ Signed [facility]07-23-2025 Procedure note [facility] Medical Records Department [address] [place] [id number] Colonoscopy Report MR#: [id number] Acct: [id number] Name: DIMITRI MCCOY Rep #:[id number] : 1975 49 From: Nicho Bee DO PCP: Dr. Nate Jacobo MD Status:R [facility] Patient Name: Dimitri Crisostomo Procedure Date: 09/11/2024 11:33 AM Date of : 1975 Age: 49 Procedure: Colonoscopy Indications: Abdominal pain in the left lower quadrant, Incidental abdominal distress noted, Incidental change in bowel habits noted Providers: Nicho Bee DO Referring MD: Nate Jacobo Medicines: Monitored Anesthesia Care Patient Profile: This is a 49 year old male. Refer to note in patient chart for documentation of history and physical. Last Colonoscopy: several years ago. Complications: No immediate complications. Procedure: Pre-Anesthesia Assessment: - Prior to the procedure, a History and Physical was performed, and patient medications and allergies were reviewed. The patient is competent. The risks and benefits of the procedure and the sedation options and risks were discussed with the patient. All questions were answered and informed consent was obtained. Patient identification and proposed procedure were verified by the physician in the pre-procedure area. Mental Status Examination: alert and oriented. Airway Examination: normal oropharyngeal airway and neck mobility. Respiratory Examination: clear to auscultation. CV Examination: normal. Prophylactic Antibiotics: The patient does not require prophylactic antibiotics. Prior Anticoagulants: The patient has taken no anticoagulant or antiplatelet agents except for NSAID medication. ASA Grade Assessment: II - A patient with mild systemic disease. After reviewing the risks and benefits, the patient was deemed in satisfactory condition to undergo the procedure. The anesthesia plan was to use monitored anesthesia care (MAC). Immediately prior to administration of medications, the patient was re-assessed for adequacy to receive sedatives. The heart rate, respiratory rate, oxygen saturations, blood pressure, adequacy of pulmonary ventilation, and response to care were monitored throughout the procedure. The physical status of the patient was re-assessed after the procedure. After I obtained informed consent, the scope was passed under direct vision. Throughout the procedure, the patient's blood pressure, pulse, and oxygen saturations were monitored continuously. The pediatric colonoscope was introduced through the anus and advanced to the terminal ileum. The colonoscopy was performed with ease. The patient tolerated the procedure well. The quality of the bowel preparation was adequate. The terminal ileum, ileocecal valve, appendiceal orifice, and rectum were photographed. Scope In: 11:44:39 AM Scope Withdrawal Time 0 hours 11 minutes 7 seconds Scope Out: 12:00:07 PM Total Procedure Duration Time 0 hours 15 minutes 28 seconds Findings: The perianal and digital rectal examinations were normal. Multiple small-mouthed diverticula were found in the sigmoid colon. A 5 mm polyp was found in the sigmoid colon. The polyp was sessile. The polyp was removed with a jumbo cold forceps. Resection and retrieval were complete. Verification of patient identification for the specimen was done. Estimated blood loss was minimal. An area of mildly congested mucosa was found in the sigmoid colon, in the descending colon and at the splenic flexure. Biopsies were taken with a cold forceps for histology. Verification of patient identification for the specimen was done. Estimated blood loss was minimal. A patchy area of the distal ileum was congested. Biopsies were taken with a cold forceps for histology. Verification of patient identification for the specimen was done. Estimated blood loss was minimal. External and internal hemorrhoids were found during retroflexion. The hemorrhoids were Grade I (internal hemorrhoids that do not prolapse). Impression: - Diverticulosis in the sigmoid colon. - One 5 mm polyp in the sigmoid colon, removed with a jumbo cold forceps. Resected and retrieved. - Congested mucosa in the sigmoid colon, in the descending colon and at the splenic flexure. Biopsied. - Congested mucosa in the distal ileum. Biopsied. Recommendation: - Discharge patient to home. - Resume previous diet. - Continue present medications. - Await pathology results. - Repeat colonoscopy in 5 years for surveillance. Procedure Code(s): --- Professional --- 41715, Colonoscopy, flexible; with biopsy, single or multiple CPT copyright 2021 [employer]. All rights reserved. The codes documented in this report are preliminary and upon tongue and groove machine feeder review may be revised to meet current compliance requirements. Nicho Bee DO 09/11/2024 12:13:26 PM This report has been signed electronically. Number of Addenda: 0 Note Initiated On: 09/11/2024 11:33 AM 09/11/24 1213 Date _ Nicho Bee DO Cosigner Signature: Date (if indicated) CC: Dr. Nate Jacobo MD; Nicho Bee DO ~ Date Dictated: 09/11/24 1133 Date Transcribed: Draw Tender: RF Signed [facility]07-23-2025 History and physical note [facility] Medical Records Department [address] [facility] [place] [address] History & Physical Exam 09/11/24 1117 MR#: [id number] Acct: [id number] Name: DIMITRI MCCOY Rep #:[id number] : 1975 49 From: Nicho Bee DO PCP: Dr. Nate Jacobo MD Status:[place] [facility] [place]: [place] [address] HPI - General General Date of Admission: 09/11/24 Date of Service: 09/11/24 Chief Complaint: abdominal pain HPI Narrative DIMITRI CRISOSTOMO, is a 49 M who presents for Chief Complaint: Nausea/Vomiting/AbdominalPain/SILVER 4.7.25 OV established with [facility] for complaints of RUQ abdominal pain. Differential diagnoses include: lymphadenopathy, fatty liver, cholecystitis, hepatitis, pancreatitis. Abdominal CT from 01.29.24 suggested fatty infiltration of liver and suggestion of mesenteric adenitis. Presence of small umbilical and small bilateral inguinal hernias. 25 repeat abd/pelvis CT w/PO and IV contrast - Circumferential wall thickening and luminal narrowing at the mid aspect of the transverse colon, concerning for underlying neoplasm. Consider colonoscopy if not recently performed. Fat containing umbilical and left inguinal hernias. Hepatic steatosi s. 06.11.24 liver US w/elastography - 16.6cm, 8.6kPa 6.9.25 OV He presents with his brother for Lebanese translation for communication. He reports improvement of nausea and vomiting. He continues to diffuse dull cramping abdominal pain allover. Reviewednegative hepatitis panel,abnormal cholesterol levels, and discussed CT results. He is taking the pantoprazole once daily in the morning and the dicyclomine twice daily. [facility] Medical History Gastric reflux Home Medications ?Medication ?Instructions ?Recorded ?Last Taken ?Type naproxen 500 mg tablet 500 mg PO BID PRN #20 tabs 1 Unknown Rx hydrocodone-acetaminophen 5-325mg 1 tab PO Q4H PRN PRN Pain 2 days 02/08/24 Unknown Rx 5mg-325mg #10 TABLETS bisacodyl 5 mg tablet,delayed 20 mg (4 x 5 mg) PO ONCE #4 tabs 07/29/24 Unknown Rx release dicyclomine 10 mg capsule 10 mg PO TID PRN abdominal p ain 07/29/24 Unknown Rx #90 caps polyethylene glycol 3350 17 238 g PO ONCE #238 grams 0 07/29/24 Unknown Rx gram/dose oral powder (Miralax) pantoprazole 40 mg tablet,delayed 40 mg PO QDAY PRN GE RD 09/10/24 Unknown History release Allergy/AdvReac Type Severity Reaction Status Date / Time No Known Allergies Allergy Verified 09/11/24 10:35 Social History Smoking Status: Never smoker ROS Constitutional Constitutional: Denies fatigue, fever(s), poor appetite, weight gain or weight loss Gastrointestinal Gastrointestinal: Denies belching, bloating, change in bowel habits, change in stool character, chewing difficulty, coffee ground emesis, constipation, cramping, diarrhea, dyspepsia, dysphagia, earlysatiety, excessive flatus, fecalincontinence, heartburn, hematemesis, hematochezia, hemorrhoids, loose stools, melena, nausea, odynophagia, rectal bleeding, tenesmus, vomiting or weight changes Vital Signs Vital Signs Vital Signs: 09/11/24 10:35 09/11/24 10:35 09/11/24 10:54 Temperature 98.1 F 98.1 F Temperature Source Temporal Pulse Rate 82 82 Respiratory Rate 16 16 Respiratory Pattern Normal Blood Pressure 128/92 H 128/92 H Blood Pressure Mean 104 Blood Pressure Source Monitor Blood Pressure Position Semi-Fowlers Blood Pressure Location Left Arm Pulse Ox 99 99 Oxygen Delivery Method Room Air Room Air Weight Weight: 158 lb 11.725 oz Body Mass Index (BMI) 24.1 Physical Exam Const alert, oriented x3, no apparent distress and healthy appearing General Appearance: cooperative GI normal to inspection, nondistended, normoactive bowel sounds, soft to palpation,non-tender and non-distended Percussion: normal to percussion Rectal Exam: deferred Assessment & Plan Assessment/Plan (1) Nausea & vomiting: QUALIFIERS: Vomiting type: unspecified Qualified Code(s): R11.2 -Nausea with vomiting, unspecified (2) RUQ abdominal pain: (3) Abdominal pain: QUALIFIERS: Abdominal location: generalized Qualified Code(s): R10.84 - Generalized abdominal pain PLAN: Assessment and Plan Assessment and Plan (1) Abdominal pain: Status: Chronic Qualifiers: Abdominal location: generalized Qualified Code(s): R10.84 - Generalizedabdominal pain (2) Nausea & vomiting: Status: Acute Qualifiers: Vomiting type: unspecified Qualified Code(s): R11.2 - Nausea with vomiting, unspecified Medications: New polyethylene glycol 3350 (Miralax) to be taken prior to colonoscopy 238 grams PO ONCE 238 grams 0RF bisacodyl to be taken prior to colonoscopy 20 mg (4 x 5 mg) PO ONCE 4 tabs 0RF Changed From dicyclomine 10 mg PO BID PRN 60 caps 1RF abdominal pain To dicyclomine 10 mg PO TID PRN 90 caps 2RF abdominal pain From pantoprazole 40 mg PO DAILY 60 tabs 2RF To pantoprazole 40 mg PO QDAY 60 tabs 2RF Plan DIMITRI CRISOSTOMO, is a 49 M who presents to the office today for FU. He reports improvement of nausea and vomiting. He continues to diffuse dull cramping abdominal pain allover. * schedule colonoscopy to assess internal tissue at circumferential wall thickening and lumen narrowing at the mid aspect of the transverse colon * continue pantoprazole 40mg PO daily * increase dicyclomine 10mg PO to TID PRN abdominal pain * office FU 1wk after colonoscopy 09/11/24 1120 Cosigner Signature (if applicable): CC: Dr. Nate Jacobo MD; Nicho Friend, DO~ Signed [facility]07-23-2025 Consult note [facility] Medical Records Department [address] [place] [address] Pre-Anesthesia Evaluation 09/11/24 1049 MR#: [id number] Acct: [id number] Name: DIMITRI MCCOY Rep #:[id number] : 1975 49 From: Randy Wilson MD PCP: Dr. Nate Jacobo MD Status:R EG [facility] Y Race: H Location: [place] [address] ASA Classification* ASA Classification ASA Classification: 2 Assessment & Plan Anesthesia* Anesthesia Assessment Anesthesia Assessment: Discussed sedation and/or anesthesia options, risks, benefits, and alternatives with patient/parents/legal guardian/POA. Questions invited. The patient/parents/legal guardian/POA seems to understand and agrees to proceedwith anesthesia plan. Reviewed the physical assessment, medical history, allergy history and patient home medications list prior to surgery/procedure/anesthetic and documented any changes. Performed airway and anesthesia risk assessments. Anesthesia Type Anesthesia Type: MAC History Source History Obtained from:: Patient and Chart Anesthesia Focused Assessment* Temperature: 98.1 F Pulse Rate: 82 Blood Pressure: 128/92 Respiratory Rate: 16 Pulse Ox: 99 Oxygen Delivery Method: Room Air Airway Assessment Mouth opens: 2 cm Mallampati Score: IV Teeth Condition: Intact Neck Range of motion (ROM): Limited ROM (Slight Decrease) Labs Anesthesia Preop lab: CBC WBC 7.3 K/mm3 (4.4-11.0) 05/27/24 10:57 05/27/24 RBC 4.88 M/mm3 (4.6-6.2) 05/27/24 10:57 05/27/24 Hgb 14.7 g/dL (13.0-16.5) 05/27/24 10:57 05/27/24 Hct 43.2 % (40-54) 05/27/24 10:57 05/27/24 Plt Count 151 K/mm3 (150-450) 05/27/24 10:57 05/27/24 CHEMISTRY Potassium 4.2 mmol/L (3.3-5.1) 05/27/24 10:57 05/27/24 Sodium 138 mmol/L (133-145) 05/27/24 10:57 05/27/24 Magnesium 1.6 mg/dL (1.6-2.6) 05/11/18 06:03 05/11/18 BUN 16 mg/dL (4-19) 05/27/24 10:57 05/27/24 Creatinine 0.87 mg/dL (0.70-1.20) 05/27/24 10:57 05/27/24 Glucose 110 mg/dL (70-99) H 05/27/24 10:57 05/27/24 COAG PT 11.2 SECONDS (11.7-14.9) L 05/27/24 10:57 09/13 Pre-Assessment Diagnosis/Proposed Procedure Planned Operative Procedure(s): COLONOSCOPY Anesthesia History 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 When Was Last Pacemaker Check QUESTION #4 FULL TEXT: You/Your Family Experience fever (hyperthermia) with Anesthesia Last Oral Intake Last Oral intake: Last Oral Intake NPO since 00:00 09/11/24 10:35 Meds taken in AM with sips of No 09/11/24 10:35 water? 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 Female No 09/10/24 14:26 HX of Motion Sickness No 09/10/24 14:26 HX of N/V After Surgery No 09/10/24 14:26 Non-Smoker Yes 09/10/24 14:26 Duration of Surgery greater No 09/10/24 14:26 than 60 minutes Number of Risk Factors 1 09/10/24 14:26 PONV Score Low Risk 09/10/24 14:26 Height & Weight Height & Weight: Anesthesia: Height & Weight Height 5 ft 8 in 09/11/24 10:35 Weight: 72 kg 09/11/24 10:35 Body Mass Index (BMI) 24.1 09/11/24 10:35 Respiratory Assessment Respiratory Assessment - ingot buggy operator: Respiratory Tract Infection Hx - ingot buggy operator Hx Respiratory Tract Infection No 09/10/24 14:26 STOP Sleep Apnea STOP Sleep Apnea - ingot buggy operator: STOP Sleep Apnea - ingot buggy operator Hx Hypertension No 09/10/24 14:26 Hx Sleep Apnea No 09/10/24 14:26 CPAP BIPAP Do you snore loudly (louder No 09/10/24 14:26 than talking or can be heard Do you often feel tired/ No 09/10/24 14:26 fatigued/ sleepy during daytime? Has anyone observed you stop No 09/10/24 14:26 breathing during sleep? STOP Results Negative 09/10/24 14:26 QUESTION #5 FULL TEXT : Do you snore loudly (louder than talking or can be heard through closeddoors)? 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 Specify any problems Hx of Preganancy in last 3 N/A 09/10/24 14:26 Months Nurse Filling Out Transfusion [email or web address] 09/10/24 14:26 & Questions: Date: 09/10/24 09/10/24 14:26 Time: 14:28 09/10/24 14:26 Patient unable to answer at this time (ie. confused, unrespo /Reproduction History /Reproductive History - ingot buggy operator: /Reproductive Hx- ingot buggy operator Hx Now Gestational Age (in weeks): EDC: Hx Hx Para Hx Section SAB Active Medications Active Medications: Current Medications Generic Name Dose Route Start Last Admin Trade Name Freq PRN Reason Stop Dose Admin Lactated Ringer's 1,000 mls @ 15 mls/hr 09/11/24 10:30 09/11/24 10:34 IV 15 mls/hr .Q48H SETH Administration PFSH Medical History Gastric reflux Home Medications ?Medication ?Instructions ?Recorded ?Last Taken ?Type naproxen 500 mg tablet 500 mg PO BID PRN #20 tabs 1 Unknown Rx hydrocodone-acetaminophen 5-325mg 1 tab PO Q4H PRN PRN Pain 2 days 02/08/24 Unknown Rx 5mg-325mg #10 TABLETS bisacodyl 5 mg tablet,delayed 20 mg (4 x 5 mg) PO ONCE #4 tabs 07/29/24 Unknown Rx release dicyclomine 10 mg capsule 10 mg PO TID PRN abdominal p ain 07/29/24 Unknown Rx #90 caps polyethylene glycol 3350 17 238 g PO ONCE #238 grams 0 07/29/24 Unknown Rx gram/dose oral powder (Miralax) pantoprazole 40 mg tablet,delayed 40 mg PO QDAY PRN GE RD 09/10/24 Unknown History release Allergy/AdvReac Type Severity Reaction Status Date / Time No Known Allergies Allergy Verified 09/11/24 10:35 Social History Smoking Status: Never smoker Review of Systems (Anesthesia) ROS Narrative System reviewed and no additional complaints, except as documented. 09/11/24 1054 andre SMALL> Date _ Randy Wilson MD Cosigner Signature: Date CC: ~ Signed [facility]05-08-2025 Radiology Diagnostic study note [facility] Imaging Services [address] [place], [place] [address] Abdomen/Pelvis WITH Contrast MR#: [id number] Acct: [id number] Name: DIMITRI MCCOY Rep #: [id number] : 1975 M 49 From: Nenita Boudreaux MD PCP: Dr. Nate Jacobo MD Status: R EG CLI Study:Abdomen/Pelvis WITH Contrast Date of Ex am: 06/25/24 Exam# [id number] Ordering Dr: Chapo Carr GOLF TEACHER-C PROCEDURE: ABDOMEN/PELVIS WITH CONTRAST 06/25/2024 REASON FOR EXAM: RUQ PAIN TECHNIQUE: Abdomen and pelvis CT with oral and intravenous contrast. Coronal and Sagittal reconstruction series were provided. PATIENT PREPARATION: Per protocol One or more dose reduction techniques were used (e.g., Automated exposure control, adjustment of the mA and/or kV according to patient size, use of iterative reconstruction technique. RADIATION DOSE SUMMARY: CTDlvol: 7.2 mGy DLP: 372.5 mGycm COMPARISON: CT abdomen and pelvis 02/08/2024, abdominal ultrasound on 06/11/2024 FINDINGS: Lung bases: Clear. Liver: Hypodense. Gallbladder: Unremarkable Spleen: Unremarkable Pancreas: Unremarkable Adrenals: Unremarkable Kidneys: No hydronephrosis or stone. Bladder: Unremarkable Reproductive Organs: Unremarkable Bowel: No obstruction or inflammation. Normal appendix. There is circumferential wall thickening and luminal narrowing at the mid aspect of the transverse colon (axial image 62 / coronal image 93) Lymph nodes: No significant lymphadenopathy. Vasculature: Unremarkable Peritoneum / Retroperitoneum: Unremarkable Bones: Mild degenerative changes of the spine. Soft tissues: Fat containing umbilical and left inguinal hernias. CT/Abdomen/Pelvis WITH Contrast IMPRESSION: 1. No acute intra-abdominal abnormality. 2. Circumferential wall thickening and luminal narrowing at the mid aspect of the transverse colon,concerning for underlying neoplasm. Consider colonoscopy if not recently performed. 3. Fat containing umbilical and left inguinal hernias. 4. Hepatic steatosis. Reading Location: [id number] CC: HEATHER Carr; Dr. Nate Jacobo MD ~ Draw Tender: Signed [facility]04-07-2025 Evaluation note* Diagnosis Onset Date Resolution Status Admit Date Mesenteric lymphadenopathy acute May 27, 2024 10:25am RUQ abdominal pain acute May 27, 2024 10:25am [facility] Work Phone: 1(202) 712-981304-07-2025 Evaluation note* Diagnosis Onset Date Resolution Status Admit Date Mesenteric lymphadenopathy acute May 27, 2024 10:25am RUQ abdominal pain acute May 27, 2024 10:25am Nausea & vomiting acute July 10:29am Abdominal pain chronic July 29, 2024 10:29am Nausea & vomiting acute September 112024 10:14am RUQ abdominal pain acute August 212024 10:14am Abdominal pain chronic September 11, 2024 10:14am [facility] Work Phone: 1(984) 967-476702-27-2025 NoteHNO ID: [id number] Author: MEMO HODGES, DO Service: ? Author Type: Physician Type: Progress Notes Filed: 05/05/2024 19:32 Note Text: Subjective The history is provided by the patient and a relative. Pt is here with his brother for ER f/u He does not speak Lebanese, and requests that his family member translate for him He was seen in the ED on 02/07 for abdominal pain He had CT of the abdomen showing small umbilical hernia as well as small b/l inguinal hernias Standing for long periods, bending down make the pain worse Heat makes the pain better Pain is 8-9/10 He has been taking naproxen for the pain which helps Denies nausea or vomiting, no diarrhea He has had cold symptoms for over 2 weeks He has a stuffy nose, sore throat, cough, left ear pain ALLERGIES No Known Allergies No current outpatient medications on file. No current facility-administered medications for this visit. ACTIVE PROBLEM LIST Hyperlipidemia, Mixed Social History Tobacco Use Smoking status: Never Smokeless tobacco: Never Substance Use Topics Alcohol use: Not Currently Drug use: Never Family History Problem Relation Age of Onset Coronary Artery Disease Father Stroke Father Diabetes Mother Reviewed past medical history, family history and surgeries. All medications and supplements were reviewed with the patient. Review of Systems Constitutional: Negative for chills, diaphoresis, fever, malaise/fatigue and weight loss. HENT: Positive for congestion and sinus pain. Negative for ear pain and hearing loss. Eyes: Negative for blurred vision and double vision. Respiratory: Positive for cough. Negative for shortness of breath. Cardiovascular: Negative for chest pain, palpitations and leg swelling. Gastrointestinal: Positive for abdominal pain. Negative for constipation, diarrhea, heartburn, nausea and vomiting. Genitourinary: Negative for dysuria and frequency. Musculoskeletal: Negative for back pain, falls, joint pain and myalgias. Skin: Negative for itching and rash. Neurological: Positive for dizziness and headaches. Negative for weakness. Endo/Heme/Allergies: Does not bruise/bleed easily. Psychiatric/Behavioral: Negative for depression and substance abuse. The patient does not have insomnia. Objective Physical Exam Constitutional: Appearance: Normal appearance. HENT: Head: Normocephalic and atraumatic. Nose: Congestion and rhinorrhea present. Mouth/Throat: Mouth: Mucous membranes are moist. Dentition: Normal dentition. Pharynx: Oropharyngeal exudate and posterior oropharyngeal erythema present. Eyes: General: Lids are normal. Extraocular Movements: Extraocular movements intact. Conjunctiva/sclera: Conjunctivae normal. Pupils: Pupils are equal, round, and reactive to light. Neck: Thyroid: No thyroid mass or thyromegaly. Vascular: No carotid bruit. Trachea: Phonation normal. Cardiovascular: Rate and Rhythm: Regular rhythm. Heart sounds: Normal heart sounds. No murmur heard. No friction rub. No gallop. Pulmonary: Effort: Pulmonary effort is normal. Breath sounds: Normal breath sounds. No wheezing or rales. Abdominal: General: Bowel sounds are normal. There is no distension. Palpations: Abdomen is soft. There is no mass. Tenderness: There is abdominal tenderness (generalized abdominal tenderness). Musculoskeletal: General: No swelling or tenderness. Normal range of motion. Cervical back: Normal range of motion and neck supple. No edema. Lymphadenopathy: Cervical: No cervical adenopathy. Skin: General: Skin is warm and dry. Findings: No erythema or rash. Nails: There is no clubbing. Neurological: Mental Status: He is alert and oriented to person, place, and time. Cranial Nerves: No cranial nerve deficit. Motor: Motor function is intact. Coordination: Coordination normal. Gait: Gait is intact. Psychiatric: Attention and Perception: Attention normal. Mood and Affect: Mood and affect normal. Speech: Speech normal. Behavior: Behavior normal. Behavior is cooperative. Thought Content: Thought content normal. Cognition and Memory: Cognition and memory normal. Judgment: Judgment normal. ASSESSMENT/PLAN: 1. Abdominal pain, right upper quadrant - ICD9: 789.01, ICD10: R10.11 (primary diagnosis) - CONSULT TO GASTROENTEROLOGY - HYDROCODONE 5 MG-ACETAMINOPHEN 325 MG TABLET 2. Bacterial sinusitis - ICD9: 473.9, 041.9, ICD10: J32.9, B96.89 - AZITHROMYCIN 250 MG TABLET [facility] of Present illness Narrative* Memo Hodges DO - 04/18/2024 2:42 PM EST Subjective The history is provided by the patient and a relative. Pt is here with his brother for ER f/u He does not speak Lebanese, and requests that his family member translate for him He was seen in the ED on 02/07 for abdominal pain He had CT of the abdomen showing small umbilical hernia as well as small b/l inguinal hernias Standing for long periods, bending down make the pain worse Heat makes the pain better Pain is 8-9/10 He has been taking naproxen for the pain which helps Denies nausea or vomiting, no diarrhea He has had cold symptoms for over 2 weeks He has a stuffy nose, sore throat, cough, left ear pain ALLERGIES No Known Allergies No current outpatient medications on file. No current facility-administered medications for this visit. ACTIVE PROBLEM LIST Hyperlipidemia, Mixed Social History Tobacco Use Smoking status: Never Smokeless tobacco: Never Substance Use Topics Alcohol use: Not Currently Drug use: Never Family History Problem Relation Age of Onset Coronary Artery Disease Father Stroke Father Diabetes Mother Reviewed past medical history, family history and surgeries. All medications and supplements were reviewed with the patient. Review of Systems Constitutional: Negative for chills, diaphoresis, fever, malaise/fatigue and weight loss. HENT: Positive for congestion and sinus pain. Negative for ear pain and hearing loss. Eyes: Negative for blurred vision and double vision. Respiratory: Positive for cough. Negative for shortness of breath. Cardiovascular: Negative for chest pain, palpitations and leg swelling. Gastrointestinal: Positive for abdominal pain. Negative for constipation, diarrhea, heartburn, nausea and vomiting. Genitourinary: Negative for dysuria and frequency. Musculoskeletal: Negative for back pain, falls, joint pain and myalgias. Skin: Negative for itching and rash. Neurological: Positive for dizziness and headaches. Negative for weakness. Endo/Heme/Allergies: Does not bruise/bleed easily. Psychiatric/Behavioral: Negative for depression and substance abuse. The patient does not have insomnia. Objective Physical Exam Constitutional: Appearance: Normal appearance. HENT: Head: Normocephalic and atraumatic. Nose: Congestion and rhinorrhea present. Mouth/Throat: Mouth: Mucous membranes are moist. Dentition: Normal dentition. Pharynx: Oropharyngeal exudate and posterior oropharyngeal erythema present. Eyes: General: Lids are normal. Extraocular Movements: Extraocular movements intact. Conjunctiva/sclera: Conjunctivae normal. Pupils: Pupils are equal, round, and reactive to light. Neck: Thyroid: No thyroid mass or thyromegaly. Vascular: No carotid bruit. Trachea: Phonation normal. Cardiovascular: Rate and Rhythm: Regular rhythm. Heart sounds: Normal heart sounds. No murmur heard. No friction rub. No gallop. Pulmonary: Effort: Pulmonary effort is normal. Breath sounds: Normal breath sounds. No wheezing or rales. Abdominal: General: Bowel sounds are normal. There is no distension. Palpations: Abdomen is soft. There is no mass. Tenderness: There is abdominal tenderness (generalized abdominal tenderness). Musculoskeletal: General: No swelling or tenderness. Normal range of motion. Cervical back: Normal range of motion and neck supple. No edema. Lymphadenopathy: Cervical: No cervical adenopathy. Skin: General: Skin is warm and dry. Findings: No erythema or rash. Nails: There is no clubbing. Neurological: Mental Status: He is alert and oriented to person, place, and time. Cranial Nerves: No cranial nerve deficit. Motor: Motor function is intact. Coordination: Coordination normal. Gait: Gait is intact. Psychiatric: Attention and Perception: Attention normal. Mood and Affect: Mood and affect normal. Speech: Speech normal. Behavior: Behavior normal. Behavior is cooperative. Thought Content: Thought content normal. Cognition and Memory: Cognition and memory normal. Judgment: Judgment normal. ASSESSMENT/PLAN: 1. Abdominal pain, right upper quadrant - ICD9: 789.01, ICD10: R10.11 (primary diagnosis) - CONSULT TO GASTROENTEROLOGY - HYDROCODONE 5 MG-ACETAMINOPHEN 325 MG TABLET 2. Bacterial sinusitis - ICD9: 473.9, 041.9, ICD10: J32.9, B96.89 - AZITHROMYCIN 250 MG TABLET Memo Hodges DO [facility] Author Fer Esparza [facility] Note Date/Time September 11, 2024 12:1 3pm [facility] Medical Records Department [address] [place] [address] Anesthesia Postop Eval I 09/11/24 1213 MR#: [id number] Acct: [id number] Name: MICHAEL SEXTONPAYALDIMITRI Rep #:[id number] : 1975 49 From: Fer Esparza PCP: Dr. Nate Jacobo MD Status:R EG SDC Y Race: H Location: [place] [address] Anesthesia: Postop Eval I Current Vital Signs Temperature: 97.3 F Pulse Rate: 64 Blood Pressure: 94/67 Respiratory Rate: 16 Pulse Ox: 98 Oxygen Delivery Method: Room Air Assessment Airway patent: Yes Spontaneous unlabored respirations: Yes Mental status: Asleep nausea: No Vomiting: No Anesthesia Complication: No Fluid Hydration Crystalloid volume administer (ml): 600 Total IV fluid infused: 600 Progress Note Anesthesia document: Postop Eval 1 completed: Yes 09/11/24 0269 <Electronically signed by Fer Esparza > Date _ Fer Esparza Cosigner Signature: Date CC: ~ Signed [facility] Work Phone: Evaluation note* Diagnosis Abdominal pain, right upper quadrant- Primary Bacterial sinusitis Unspecified sinusitis (chronic) [facility] Author Nicho Bee [facility] Note Date/Time September 11, 2024 11:2 0am [facility] Medical Records Department [address] [place] [id number] History & Physical Exam 09/11/24 1117 MR#: [id number] Acct: [id number] Name: DIMITRI MCCOY Rep #:[id number] : 1975 49 From: Nicho Bee DO PCP: Dr. Nate Jacobo MD Status:R [facility] Location: [place] [address] HPI - General General Date of Admission: 09/11/24 Date of Service: 09/11/24 Chief Complaint: abdominal pain HPI Narrative DIMITRI CRISOSTOMO, is a 49 M who presents for Chief Complaint: Nausea/Vomiting/AbdominalPain/SILVER 4.7.25 OV established with I for complaints of RUQ abdominal pain. Differential diagnoses include: lymphadenopathy, fatty liver, cholecystitis, hepatitis, pancreatitis. Abdominal CT from 01.29.24 suggested fatty infiltration of liver and suggestion of mesenteric adenitis. Presence of small umbilical and small bilateral inguinal hernias. 5.6.25 repeat abd/pelvis CT w/PO and IV contrast - Circumferential wall thickening and luminal narrowing at the mid aspect of the transverse colon, concerning for underlying neoplasm. Consider colonoscopy if not recently performed. Fat containing umbilical and left inguinal hernias. Hepatic steatosis. 06.11.24 liver US w/elastography - 16.6cm, 8.6kPa 6.9.25 OV He presents with his brother for Lebanese translation for communication. He reports improvement of nausea and vomiting. He continues to diffuse dull cramping abdominal pain allover. Reviewed negative hepatitis panel,abnormal cholesterol levels, and discussed CT results. He is taking the pantoprazole once daily in the morning and the dicyclomine twice daily. [facility] Medical History Gastric reflux Home Medications ?Medication ?Instructions ?Recorded ?Last Taken ?Type naproxen 500 mg tablet 500 mg PO BID PRN #20 tabs 1 Unknown Rx hydrocodone-acetaminophen 5-325mg 1 tab PO Q4H PRN PRN Pain 2 days 02/08/24 Unknown Rx 5mg-325mg #10 TABLETS bisacodyl 5 mg tablet,delayed 20 mg (4 x 5 mg) PO ONCE #4 tabs 07/29/24 Unknown Rx release dicyclomine 10 mg capsule 10 mg PO TID PRN abdominal p ain 07/29/24 Unknown Rx #90 caps polyethylene glycol 3350 17 238 g PO ONCE #238 grams 0 07/29/24 Unknown Rx gram/dose oral powder (Miralax) pantoprazole 40 mg tablet,delayed 40 mg PO QDAY PRN GE RD 09/10/24 Unknown History release Allergy/AdvReac Type Severity Reaction Status Date / Time No Known Allergies Allergy Verified 09/11/24 10:35 Social History Smoking Status: Never smoker ROS Constitutional Constitutional: Denies fatigue, fever(s), poor appetite, weight gain or weight loss Gastrointestinal Gastrointestinal: Denies belching, bloating, change in bowel habits, change in stool character, chewing difficulty, coffee ground emesis, constipation, cramping, diarrhea, dyspepsia, dysphagia, early satiety, excessive flatus, fecalincontinence, heartburn, hematemesis, hematochezia, hemorrhoids, loose stools, melena, nausea, odynophagia, rectal bleeding, tenesmus, vomiting or weight changes Vital Signs Vital Signs Vital Signs: 09/11/24 10:35 09/11/24 10:35 09/11/24 10:54 Temperature 98.1 F 98.1 F Temperature Source Temporal Pulse Rate 82 82 Respiratory Rate 16 16 Respiratory Pattern Normal Blood Pressure 128/92 H 128/92 H Blood Pressure Mean 104 Blood Pressure Source Monitor Blood Pressure Position Semi-Fowlers Blood Pressure Location Left Arm Pulse Ox 99 99 Oxygen Delivery Method Room Air Room Air Weight Weight: 158 lb 11.725 oz Body Mass Index (BMI) 24.1 Physical Exam Const alert, oriented x3, no apparent distress and healthy appearing General Appearance: cooperative GI normal to inspection, nondistended, normoactive bowel sounds, soft to palpation,non-tender and non-distended Percussion: normal to percussion Rectal Exam: deferred Assessment & Plan Assessment/Plan (1) Nausea & vomiting: QUALIFIERS: Vomiting type: unspecified Qualified Code(s): R11.2 -Nausea with vomiting, unspecified (2) RUQ abdominal pain: (3) Abdominal pain: QUALIFIERS: Abdominal location: generalized Qualified Code(s): R10.84 - Generalized abdominal pain PLAN: Assessment and Plan Assessment and Plan (1) Abdominal pain: Status: Chronic Qualifiers: Abdominal location: generalized Qualified Code(s): R10.84 - Generalizedabdominal pain (2) Nausea & vomiting: Status: Acute Qualifiers: Vomiting type: unspecified Qualified Code(s): R11.2 - Nausea with vomiting, unspecified Medications: New polyethylene glycol 3350 (Miralax) to be taken prior to colonoscopy 238 grams PO ONCE 238 grams 0RF bisacodyl to be taken prior to colonoscopy 20 mg (4 x 5 mg) PO ONCE 4 tabs 0RF Changed From dicyclomine 10 mg PO BID PRN 60 caps 1RF abdominal pain To dicyclomine 10 mg PO TID PRN 90 caps 2RF abdominal pain From pantoprazole 40 mg PO DAILY 60 tabs 2RF To pantoprazole 40 mg PO QDAY 60 tabs 2RF Plan DIMITRI MICHAEL CRISOSTOMO, is a 49 M who presents to the office today for FU. He reports improvement of nausea and vomiting. He continues to diffuse dull cramping abdominal pain allover. * schedule colonoscopy to assess internal tissue at circumferential wall thickening and lumen narrowing at the mid aspect of the transverse colon * continue pantoprazole 40mg PO daily * increase dicyclomine 10mg PO to TID PRN abdominal pain * office FU 1wk after colonoscopy 09/11/24 1120 <Electronically signed by Nicho Bee DO> Cosigner Signature (if applicable): CC: Dr. Nate Jacobo MD; Nicho Bee DO~ Signed [facility] Work Phone: Reason for referral (narrative)No reason for referral information availableWSumma Health [facility] Work Phone: Summary Purpose Family History Relationship Condition Age at Onset Recorded Date/T pa Unknown Family History?Diabetes Unknown [facility] 2018 7:26am Family History?Heart Disease Unknown May 11, 2018 7:26am Advance Directives Advance Directive Response Recorded Date/ Time Living Will No February 07 7:53am Do you have a Healthcare Power of Guinea Pig Breeder? No February 08, 2024 7:53am Advance Directive Response Recorded Date/ Time Do you have a Healthcare Power of Guinea Pig Breeder? No September 10, 2024 2:26pm Chief Complaint and Reason for Visit Chief Complaint Admit Date abd pain February 08, 2024 6:52am ABD PAIN May 27, 2024 10:2 5am INT LAB ORDERS May 27, 2024 10:5 3am Reason for Visit Admit Date Mesenteric lymphadenopathy May 27 10:25am RUQ abdominal pain May 27, 2024 10:2 5am Chief Complaint Admit Date ABD PAIN May 27, 2024 10:2 5am INT LAB ORDERS May 27, 2024 10:5 3am ABD PAIN June 11, 2024 9:5 6am RUQ PAIN June 25, 2024 8:02am Chief Complaint Admit Date ABD PAIN May 27, 2024 10:2 5am INT LAB ORDERS May 27, 2024 10:5 3am ABD PAIN June 11, 2024 9:5 6am RUQ PAIN June 25, 2024 8:02am follow up July 29, 2024 10:29 am Reason for Visit Admit Date Mesenteric lymphadenopathy May 27 10:25am RUQ abdominal pain May 27, 2024 10:2 5am Nausea & vomiting July 29, 2024 10:29 am Abdominal pain July 29, 2024 10:29 am Nausea & vomiting September 11, 2024 10:1 4am RUQ abdominal pain September 11, 2024 10:1 4am Abdominal pain September 11, 2024 10:1 4am Additional Source Comments Source Comments (unrecognize d section and content) In the event this informatio n is protected by the Federal Confidentiality of Alcohol and Drug Abuse Patient Records regulations: The Federal rules restrict any use of the information to criminally investigate or prosecute any alcohol or drug abuse patient.[facility] Reason for Visit (unrecogniz ed section and content) Reason Comments Sore Throat Started: week or 2 S ymptoms: sore throat, coughTreatment: tylenolCovid Test: none ER F/U Hernia needs referra l (unrecognized sect ion and content) No Status Records FoundNo Status Records Found INFORMATION SOURCE (unrecogn ized section and content) DATE CREATED AUTHOR 05/07/2024 [facility] DATE CREATED AUTHOR AUTHOR'S ORGANIZ ATION 09/11/2024 [place] (unrecognized sec tion and content) Team Status: Active Member Role Status Dates Dr. Nate Jacobo MD Primary Care Provider Active Team Status: Inactive Member Role Status Dates Dr. Nate Jacobo MD Primary Care Provider Active Start: February 08, 2024 End: February 08, 2024 Dr. Kane Baez DO Attending Provider Active S tart: February 08, 2024 End: February 08, 2024 Dr. Kane Baez DO Emergency Provider Active S tart: February 08, 2024 End: February 08, 2024 Team Status: Inactive Member Role Status Dates Dr. Nate Jacobo MD Primary Care Provider Active Start: May 27, 2024 End: May 27, 2024 Dr. Nate Jacobo MD Referring Provider Active Start: May 27, 2024 End: May 27, 2024 Ericka Carr [employer] Attending Provider Active S tart: May 27, 2024 End: May 27, 2024 Team Status: Inactive Member Role Status Dates Dr. Nate Jacobo MD Primary Care Provider Active Start: May 27, 2024 End: May 27, 2024 Ericka Carr [employer] Attending Provider Active S tart: May 27, 2024 End: May 27, 2024 Erickaher Carr , [employer] Referring Provider Active S tart: May 27, 2024 End: May 27, 2024 Team Status: Inactive Member Role Status Dates Dr. Nate Jacobo MD Primary Care Provider Active Start: June 11, 2024 End: June 11, 2024 Ericka Carr , [employer] Attending Provider Active S tart: June 11, 2024 End: June 11, 2024 Ericka Carr , [employer] Referring Provider Active S tart: June 11, 2024 End: June 11, 2024 Team Status: Inactive Member Role Status Dates Dr. Nate Jacobo MD Primary Care Provider Active Start: June 25, 2024 End: June 25, 2024 Erickaher Carr , [employer] Attending Provider Active S tart: June 25, 2024 End: June 25, 2024 Erickaher Carr , [employer] Referring Provider Active S tart: June 25, 2024 End: June 25, 2024 Team Status: Inactive Member Role Status Dates Dr. Nate Jacobo MD Primary Care Provider Active Start: July 29, 2024 End: July 29, 2024 Dr. Nate Jacobo MD Referring Provider Active Start: July 29, 2024 End: July 29, 2024 Ericka Carr , [employer] Attending Provider Active S tart: July 29, 2024 End: July 29, 2024 Team Status: Active Member Role/Relationship Status Dates Dr. Nate Jacobo MD Primary Care Provider Active Team Status: Inactive Member Role/Relationship Status Dates Dr. Nate Jacobo MD Primary Care Provider Active Start: May 27, 2024 End: May 27, 2024 Dr. Nate Jacobo MD Referring Provider Active Start: May 27, 2024 End: May 27, 2024 Ericka Carr , [employer] Attending Provider Active S tart: May 27, 2024 End: May 27, 2024 Team Status: Inactive Member Role/Relationship Status Dates Dr. Nate Jacobo MD Primary Care Provider Active Start: May 27, 2024 End: May 27, 2024 Ericka Carr [employer] Attending Provider Active S tart: May 27, 2024 End: May 27, 2024 Erickaher Carr , [employer] Referring Provider Active S tart: May 27, 2024 End: May 27, 2024 Team Status: Inactive Member Role/Relationship Status Dates Dr. Nate Jacobo MD Primary Care Provider Active Start: June 11, 2024 End: June 11, 2024 Ericka Carr [employer] Attending Provider Active S tart: June 11, 2024 End: June 11, 2024 Ericka Carr , [employer] Referring Provider Active S tart: June 11, 2024 End: June 11, 2024 Team Status: Inactive Member Role/Relationship Status Dates Dr. Nate Jacobo MD Primary Care Provider Active Start: June 25, 2024 End: June 25, 2024 Ericka Carr [employer]C Attending Provider Active S tart: June 25, 2024 End: June 25, 2024 Ericka Carr [employer] Referring Provider Active S tart: June 25, 2024 End: June 25, 2024 Team Status: Inactive Member Role/Relationship Status Dates Dr. Nate Jacobo MD Primary Care Provider Active Start: July 29, 2024 End: July 29, 2024 Dr. Nate Jacobo MD Referring Provider Active Start: July 29, 2024 End: July 29, 2024 Ericka Carr [employer]C Attending Provider Active S tart: July 29, 2024 End: July 29, 2024 Team Status: Inactive Member Role/Relationship Status Dates Dr. Nate Jacobo MD Primary Care Provider Active Start: September 11, 2024 End: September 11, 2024 Dr. Nate Jacobo MD Referring Provider Active Start: September 11, 2024 End: September 11, 2024 Dr. Nicho Bee DO Attending Provider Active Start: September 11, 2024 End: Yajaira 23rd, 2025 Team Status: Active Member Role/Relationship Status Dates Dr. Nate Jacobo MD Primary Care Provider Active Start: September 11, 2024 Dr. Nate Jacobo MD Referring Provider Active Start: September 11, 2024 Dr. Nicho Bee , DO Attending Provider Active Start: September 11, 2024 Dr. Nicho Bee , DO Other Provider Active St art: September 11, 2024 Goals (unrecognized section and content) Goals may be documented in a n alternate sectionGoals may be documented in an alternate sectionGoals may be documented in an alternate section FOR RECORDS PERTAINING TO PATIENTS WHO ARE OR HAVE BEEN ENROLLED IN A CHEMICAL DEPENDENCY/SUBSTANCEABUSE PROGRAM, SOME INFORMATION MAY BE OMITTED. This clinical summary was aggregated from multiple sources. Caution should be exercised in using it in the provision of clinical care. This summary normalizes information from multiple sources, and as a consequence, information in this document may materially change the coding, format and clinical context of patient data. In addition, data may be omitted in some cases. CLINICAL DECISIONS SHOULD BE BASED ON THE PRIMARY CLINICAL RECORDS. [employer] provides no warranty or guarantee of the accuracy or completeness of information in this document.
== END 2024-09-11 12:56 | disposition home or self-care (01) ==
LOC: EN 10:15 → AC 10:16
PROVIDERS: PCP Internal Medicine; Referring Provider Internal Medicine; Visit Provider Internal Medicine Gastroenterology
PROC: 0DJD8ZZ Inspection of Lower Intestinal Tract, Via Natural or Artificial Opening Endoscopic (ICD-10-PCS; CPT 45378; principal; 2024-09-11 11:25)
DX: D12.5 Benign neoplasm of sigmoid colon (principal); K57.30 Diverticulosis of large intestine without perforation or abscess without bleeding; K64.0 First degree hemorrhoids; K21.9 Gastro-esophageal reflux disease without esophagitis; R19.4 Change in bowel habit; G89.29 Other chronic pain; Z79.899 Other long term (current) drug therapy
CPT/HCPCS: 45380; 88305; 88312; J2405